=== PATIENT | female | born 2000 | race Caucasian/White ===

== ENCOUNTER 2018-09-22 14:40 | Outpatient (CLI) | payer OTHER | END 2018-09-22 14:41 | disposition EMS.NT | LOC: EMS 14:40 | PROVIDERS: ATTEND Surgery | DX: R42 Dizziness and giddiness (principal) ==

== ENCOUNTER 2018-09-22 15:41 | Emergency (ER) | payer OTHER ==
--- NOTE | 2018-09-22 16:04 | ED Physician Documentation ---
History of Present Illness - Stated complaint Stated Complaint: DIZZY - Chief complaint Chief Complaint: General - History obtained from History obtained from: Patient, EMS - History of Present Illness Timing: Today Pain level max: 0 Pain level now: 0 - Additonal information Additional information: 18-year-old female presents to the emergency department after feeling lightheaded dizzy and near syncopal at work today. She states that her hands and feet were blue and tingling. She states that she ate and drank normally today. No new medications. Did have a spray watson yesterday. No fevers, coughing, vomiting, diarrhea. Similar episode occurred during [employer]. No chest pain. No palpitations. Denies any possibility of Review of Systems Ten Systems: 10 systems reviewed and negative Constitutional: denies: Fever, Chills Throat: denies: Sore throat Cardiac: denies: Chest pain / pressure, Palpitations GI: denies: Vomiting : denies: Dysuria, Now EGA Skin: denies: Rash Musculoskeletal: denies: Neck pain Neurologic: denies: Headache PD PAST MEDICAL HISTORY - Past Medical History Past Medical History: No - Past Surgical History Past Surgical History: No - Present Medications Home Medications: Ambulatory Orders Medication Instructions Recorded Confirmed No Known Home Medications 09/22/18 09/22/18 - Allergies Allergies/Adverse Reactions: Allergies Allergy/AdvReac Type Severity Reaction Status Date / Time No Known Drug Allergies Allergy Verified 09/22/18 16:05 - Living Situation Living Situation: reports: With family Living Arrangement: reports: At home - Social History Does the pt smoke?: No Does the pt drink ETOH?: No Does the pt have substance abuse?: No PD ED PE NORMAL - Vitals Vital signs reviewed: Yes - General General: Alert and oriented X 3, No acute distress, Well developed/nourished - HEENT HEENT: Atraumatic, PERRL, Ears normal, Moist mucous membranes - Neck Neck: Supple, no meningeal sign - Cardiac Cardiac: RRR, No murmur, Strong equal pulses - Respiratory Respiratory: No respiratory distress, Clear bilaterally - Abdomen Abdomen: Soft, Non tender, Non distended - Derm Derm: Warm and dry, No rash - Extremities Extremities: No edema, No calf tenderness / cord - Neuro Neuro: Alert and oriented X 3, 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, No motor deficit, No sensory deficit, Normal speech - Psych Psych: Normal mood, Normal affect Results - Vitals Vitals: Vital Signs - 24 hr 09/22/18 09/22/18 15:45 17:03 Temperature 36.6 C Heart Rate 78 84 Respiratory 17 15 Rate Blood Pressure 126/79 117/76 O2 Saturation 100 100 Oxygen O2 Source Room air - EKG (time done) 1546 Rate: Rate (enter#) (79) Rhythm: NSR [place]: Normal Intervals: Normal PA QRS: Normal Ischemia: Normal ST segments Computer interpretation: Agree with computer - Labs Labs: Laboratory Tests 09/22/18 09/22/18 09/22/18 15:58 16:05 16:08 WBC 5.7 RBC 4.49 Hgb 12.5 Hct 37.3 MCV 83.3 MCH 27.9 MCHC 33.5 RDW 13.1 Plt Count 261 MPV 7.9 Neut # (Auto) 3.0 Lymph # (Auto) 2.1 [place] # (Auto) 0.4 Eos # (Auto) 0.1 Baso # (Auto) 0.1 Absolute Nucleated RBC 0.00 Nucleated RBC % 0.1 Sodium Potassium Chloride Carbon Dioxide Anion Gap BUN Creatinine Estimated GFR (MDRD) Glucose POC Whole Bld Glucose 81 Calcium Total Bilirubin AST ALT Alkaline Phosphatase Total Protein Albumin Globulin Albumin/Globulin Ratio Lipase Urine Color YELLOW Urine Clarity CLEAR Urine pH 7.0 Ur Specific [place] <=1.005 Urine Protein NEGATIVE Urine Glucose (UA) NEGATIVE Urine Ketones NEGATIVE Urine Occult Blood NEGATIVE Urine Nitrite NEGATIVE Urine Bilirubin NEGATIVE Urine Urobilinogen 0.2 (NORMAL) Ur Leukocyte Esterase NEGATIVE Ur Microscopic Review NOT INDICATED Urine Culture Comments NOT INDICATED Urine HCG, Qual NEGATIVE 09/22/18 16:08 WBC RBC Hgb Hct MCV MCH MCHC RDW Plt Count MPV Neut # (Auto) Lymph # (Auto) [place] # (Auto) Eos # (Auto) Baso # (Auto) Absolute Nucleated RBC Nucleated RBC % Sodium 139 Potassium 3.6 Chloride 107 Carbon Dioxide 24 Anion Gap 8.0 BUN 10 Creatinine 0.6 Estimated GFR (MDRD) 127 Glucose 100 POC Whole Bld Glucose Calcium 8.6 Total Bilirubin 0.7 AST 14 ALT < 10 L Alkaline Phosphatase 49 Total Protein 7.0 Albumin 4.1 Globulin 2.9 Albumin/Globulin Ratio 1.4 Lipase 27 Urine Color Urine Clarity Urine pH Ur Specific [place] Urine Protein Urine Glucose (UA) Urine Ketones Urine Occult Blood Urine Nitrite Urine Bilirubin Urine Urobilinogen Ur Leukocyte Esterase Ur Microscopic Review Urine Culture Comments Urine HCG, Qual - Rads (name of study) Chest x-ray Radiology: Prelim report reviewed, EMP read contemporaneously, See rad report (No acute disease) PD MEDICAL DECISION MAKING - ED course Complexity details: reviewed results, re-evaluated patient, considered differential, d/w patient ED course: 18-year-old female presents to the emergency department after a near syncopal event today. Normal testing here. She is well-appearing, nontoxic. Asymptomatic. We will have her follow-up with her PCP for further care. May benefit from an echocardiogram as this is the second episode. May also benefit from a Holter monitor. Patient counseled regarding signs and symptoms for which I believe and urgent re-evaluation would be necessary. Patient with good understanding of and agreement to plan and is comfortable going home at this time This document was made in part using voice recognition software. While efforts are made to proofread this document, sound alike and grammatical errors may occur. Departure - Departure Disposition: 01 Home, Self Care Clinical Impression: Vasovagal near syncope Condition: Good Instructions: ED Near Syncope Vasovagal Follow-Up: MAICO HOPKINS [Primary Care Provider] - Within 1 week Comments: Your testing is normal today. Return if you worsen. Follow-up with your doctor for further care. They may want to perform further testing such as an echocardiogram to further evaluate your heart. Discharge Date/Time: 09/22/18 17:07
[2018-09-22 16:15] LABS: BASOPHILS # (AUTO) 0.1 10^3/uL (0.0-0.1); EOSINOPHILS # (AUTO) 0.1 10^3/uL (0.0-0.7); EOSINOPHILS % (AUTO) 1.9 %; HGB - HEMOGLOBIN 12.5 g/dL (12.0-16.0); LYMPHOCYTES # (AUTO) 2.1 10^3/uL (1.5-3.5); LYMPHOCYTES % (AUTO) 37.4 %; MEAN CORPUSCULAR HEMOGLOBIN 27.9 pg (27.0-31.0); MEAN CORPUSCULAR HGB CONC 33.5 g/dL (32.0-36.0); MEAN CORPUSCULAR VOLUME 83.3 fL (81.0-99.0); MEAN PLATELET VOLUME 7.9 fL (7.9-10.8); MONOCYTES # (AUTO) 0.4 10^3/uL (0.0-1.0); MONOCYTES % (AUTO) 6.6 %; NEUTROPHILS % (AUTO) 53.1 %; PLT - PLATELET COUNT 261 10^3/uL (130-450); RED BLOOD COUNT 4.49 10^6/uL (4.20-5.40); RED CELL DISTRIBUTION WIDTH 13.1 % (12.0-15.0); WHITE BLOOD COUNT 5.7 x10^3/uL (4.8-10.8)
[2018-09-22 16:15] LABS: BILIRUBIN,URINE NEGATIVE (NEGATIVE); GLUCOSE, URINE (UA) NEGATIVE (NEGATIVE); KETONES,URINE (UA) NEGATIVE (NEGATIVE); LEUKOCYTE ESTERASE, URINE NEGATIVE (NEGATIVE); NITRITE,URINE NEGATIVE (NEGATIVE); OCCULT BLOOD,URINE NEGATIVE (NEGATIVE); PROTEIN,URINE NEGATIVE (NEGATIVE); UROBILINOGEN,URINE 0.2 (NORMAL) E.U./dL (NORMAL)
[2018-09-22 16:21] LABS: CLARITY,URINE CLEAR (CLEAR); HCG UR QUAL NEGATIVE
[2018-09-22 16:29] LABS: ALBUMIN 4.1 g/dL (3.2-5.5); ALBUMIN/GLOBULIN RATIO 1.4 (1.0-2.2); ALKALINE PHOSPHATASE 49 IU/L (42-121); ALT ALANINE AMINOTRANSFERASE < 10 IU/L (10-60); AST ASPARTATE AMINOTRANSFERASE 14 IU/L (10-42); BILIRUBIN,TOTAL 0.7 mg/dL (0.2-1.0); BUN - BLOOD UREA NITROGEN 10 mg/dL (6-20); CALCIUM 8.6 mg/dL (8.5-10.3); CARBON DIOXIDE - CO2 24 mmol/L (21-32); CHLORIDE 107 mmol/L (101-111); CREATININE 0.6 mg/dL (0.4-1.0); GFR - MDRD 127 (>89); GLUCOSE 100 mg/dL (70-100); LIPASE 27 U/L (22-51); SODIUM 139 mmol/L (135-145)
--- NOTE | 2018-09-22 16:53 | XRAY Report ---
Reason: near syncope Procedure Date: 09/22/2018 Accession Number: [id number] / [id number] Procedure: XR - Chest 1 View X-Ray CPT Code: 29713 FULL RESULT: EXAM: CHEST RADIOGRAPHY EXAM DATE: 09/22/2018 04:04 PM. CLINICAL HISTORY: Near syncope. COMPARISON: None. TECHNIQUE: 1 view. FINDINGS: Lungs/Pleura: No localized infiltrate, consolidation, effusion, or pneumothorax. Mediastinum: Within exam limitations, the cardiomediastinal contour is normal. Upper lobe vessels not distended. Other: None. IMPRESSION: Normal single view chest. RADIA
[2018-09-22 17:07] VITALS: BP 117/76
== END 2018-09-22 17:07 | disposition home or self-care (01) ==
LOC: ED 15:41
DX: R55 Syncope and collapse (principal)
CPT/HCPCS: 36415; 71045; 80053; 81001; 81003; 81025; 83690; 85025; 87086; 93005; 99283

== ENCOUNTER 2018-10-04 12:20 | Emergency (ER) | payer OTHER ==
--- NOTE | 2018-10-04 13:35 | XRAY Report ---
Reason: injury Procedure Date: 10/04/2018 Accession Number: [id number] / [id number] Procedure: XR - Foot 3 View RT CPT Code: FULL RESULT: EXAM: RIGHT FOOT RADIOGRAPHY EXAM DATE: 10/04/2018 01:21 PM. CLINICAL HISTORY: Injury. COMPARISON: None. TECHNIQUE: 3 views. FINDINGS: Bones: There is a transverse linear lucency through the proximal fifth metatarsal. Otherwise unremarkable. Joints: Normal. No subluxations. Soft Tissues: Normal. No soft tissue swelling. IMPRESSION: Nondisplaced fracture of proximal fifth metatarsal RADIA
--- NOTE | 2018-10-04 13:37 | XRAY Report ---
Reason: injury Procedure Date: 10/04/2018 Accession Number: [id number] / [id number] Procedure: XR - Ankle 3 View RT CPT Code: FULL RESULT: EXAM: RIGHT ANKLE RADIOGRAPHY EXAM DATE: 10/04/2018 01:21 PM. CLINICAL HISTORY: Injury. COMPARISON: None. TECHNIQUE: 3 views. FINDINGS: Bones: There is a nondisplaced fracture of the proximal fifth metatarsal. No tibia-fibula fracture. Talus and calcaneus appears intact. Joints: Normal. No effusion. No subluxations. The ankle mortise is normally aligned. Soft Tissues: Normal. No soft tissue swelling. IMPRESSION: 1. Nondisplaced proximal fifth metatarsal fracture. 2. No fracture or subluxation of ankle. RADIA
--- NOTE | 2018-10-04 14:44 | ED Physician Documentation ---
PD HPI LOWER EXT INJURY - Stated complaint Stated Complaint: R FOOT INJ - Chief complaint Chief Complaint: Ext Problem - History obtained from History obtained from: Patient - History of Present Illness PD HPI LOW EXT INJURY LOCATION: Right (She was jumping down her steps this morning and came down wrong injuring her right foot. She is unable to walk or bear weight. No other injuries.) Review of Systems Constitutional: reports: Reviewed and negative Cardiac: reports: Reviewed and negative Respiratory: reports: Reviewed and negative PD PAST MEDICAL HISTORY - Past Surgical History Past Surgical History: No - Present Medications Home Medications: Ambulatory Orders Medication Instructions Recorded Confirmed No Known Home Medications 09/22/18 09/22/18 Knee Scooter 1 unit TD ONCE #1 10/04/18 - Allergies Allergies/Adverse Reactions: Allergies Allergy/AdvReac Type Severity Reaction Status Date / Time No Known Drug Allergies Allergy Verified 10/04/18 12:29 - Social History Does the pt smoke?: No Smoking Status: Current every day smoker Does the pt drink ETOH?: No Does the pt have substance abuse?: No - Immunizations Immunizations are current?: Yes PD ED PE NORMAL - Vitals Vital signs reviewed: Yes - General General: Alert and oriented X 3, No acute distress - Extremities Extremities: Other (Right foot and ankle, tenderness over the right fifth metatarsal without deformity. Normal neurovascular function.) - Neuro Neuro: Alert and oriented X 3, Normal speech Results - Vitals Vitals: Vital Signs - 24 hr 10/04/18 12:25 Temperature 36.4 C L Heart Rate 105 H Respiratory 18 Rate Blood Pressure 118/84 H O2 Saturation 100 Oxygen O2 Source Room air - Rads (name of study) R foot and ankle Radiology: EMP read contemporaneously (Nondisplaced proximal fifth metatarsal fracture) Procedures - Splint (location) R foot Splint applied by: Tech Type of splint: Fiberglass, Short leg, Posterior Other: Patient tolerated well, No complications, Neurovascular intact, Crutches provided Departure - Departure Disposition: 01 Home, Self Care Clinical Impression: Nondisplaced fracture of fifth right metatarsal bone Qualifiers: Encounter type: initial encounter Fracture type: closed Qualified Code(s): S92.354A - Nondisplaced fracture of fifth metatarsal bone, right foot, initial encounter for closed fracture Condition: Good Record reviewed to determine appropriate education?: Yes Instructions: ED Fx Foot Prescriptions: Knee Scooter 1 unit TD ONCE #1 Comments: [place]opedics within the week. Do not walk or bear weight on right foot until advised it is safe [place]. Forms: Activity restrictions
[2018-10-04 15:23] VITALS: BP 123/74
== END 2018-10-04 15:25 | disposition home or self-care (01) ==
LOC: ED 12:20
DX: S92.354A Nondisplaced fracture of fifth metatarsal bone, right foot, initial encounter for closed fracture (principal); X50.1XXA Overexertion from prolonged static or awkward postures, initial encounter; Y93.39 Activity, other involving climbing, rappelling and jumping off; F17.200 Nicotine dependence, unspecified, uncomplicated
CPT/HCPCS: 29515; 99283

== ENCOUNTER 2018-12-24 21:33 | Emergency (ER) | payer OTHER ==
[2018-12-24 22:02] LABS: BILIRUBIN,URINE NEGATIVE (NEGATIVE); GLUCOSE, URINE (UA) NEGATIVE (NEGATIVE); KETONES,URINE (UA) NEGATIVE (NEGATIVE); LEUKOCYTE ESTERASE, URINE NEGATIVE (NEGATIVE); NITRITE,URINE NEGATIVE (NEGATIVE); OCCULT BLOOD,URINE NEGATIVE (NEGATIVE); PROTEIN,URINE NEGATIVE (NEGATIVE); UROBILINOGEN,URINE 0.2 (NORMAL) E.U./dL (NORMAL)
[2018-12-24 22:03] LABS: CLARITY,URINE CLEAR (CLEAR)
[2018-12-24 22:04] LABS: HCG UR QUAL NEGATIVE
[2018-12-24 22:26] LABS: BASOPHILS % (AUTO) 0.6 %; EOSINOPHILS # (AUTO) 0.3 10^3/uL (0.0-0.7); EOSINOPHILS % (AUTO) 4.1 %; HGB - HEMOGLOBIN 13.3 g/dL (12.0-16.0); LYMPHOCYTES # (AUTO) 3.1 10^3/uL (1.5-3.5); MEAN CORPUSCULAR HGB CONC 33.6 g/dL (32.0-36.0); MEAN CORPUSCULAR VOLUME 83.2 fL (81.0-99.0); MEAN PLATELET VOLUME 7.7 fL (7.9-10.8); MONOCYTES # (AUTO) 0.5 10^3/uL (0.0-1.0); MONOCYTES % (AUTO) 6.9 %; NEUTROPHILS # (AUTO) 3.3 10^3/uL (1.5-6.6); NEUTROPHILS % (AUTO) 45.4 %; PLT - PLATELET COUNT 309 10^3/uL (130-450); RED BLOOD COUNT 4.73 10^6/uL (4.20-5.40); RED CELL DISTRIBUTION WIDTH 12.9 % (12.0-15.0); WHITE BLOOD COUNT 7.3 x10^3/uL (4.8-10.8)
[2018-12-24 22:45] LABS: ALBUMIN 4.5 g/dL (3.2-5.5); ALBUMIN/GLOBULIN RATIO 1.3 (1.0-2.2); BILIRUBIN,TOTAL 0.7 mg/dL (0.2-1.0); CALCIUM 9.8 mg/dL (8.5-10.3); CREATININE 0.7 mg/dL (0.4-1.0); TOTAL PROTEIN 7.9 g/dL (6.7-8.2)
[2018-12-25] MEDS ORDERED: IOVERSOL 320 100 ML VIAL IVP ONE ×2 (01:18→01:48)
--- NOTE | 2018-12-25 01:50 | CT Report ---
Reason: RLQ pain, tenderness Procedure Date: 12/25/2018 Accession Number: [id number] / [id number] Procedure: CT - Abdomen/Pelvis W CPT Code: FULL RESULT: EXAM: CT ABDOMEN AND PELVIS EXAM DATE: 12/25/2018 01:44 AM. CLINICAL HISTORY: Right lower quadrant pain, tenderness. COMPARISONS: None. TECHNIQUE: Routine helical CT imaging was performed through the abdomen and pelvis. IV contrast: Yes . Enteric contrast: No . Reconstructions: Coronal and sagittal. In accordance with CT protocol optimization, one or more of the following dose reduction techniques were utilized for this exam: automated exposure control, adjustment of mA and/or KV based on patient size, or use of iterative reconstructive technique. FINDINGS: Lung Bases: Unremarkable. Liver: Unremarkable. No suspicious masses. Gallbladder/Bile Ducts: Unremarkable. Spleen: Unremarkable. Pancreas: Unremarkable. Adrenal Glands: Unremarkable. Kidneys: Unremarkable. No suspicious masses or hydronephrosis. Peritoneal Cavity/Bowel: No bowel obstruction or inflammatory process seen. No free air or significant free fluid. No masses or adenopathy. The appendix is normal. No excessive stool burden. Pelvic Organs: Bladder, uterus, and adnexa appear unremarkable with note of an IUD. Vasculature: No aneurysms or other significant abnormality. Bones: No significant abnormality. Other: None. IMPRESSION: Normal abdomen and pelvis CT. RADIA
--- NOTE | 2018-12-25 02:17 | ED Physician Documentation ---
PD HPI ABD PAIN - Stated complaint Stated Complaint: FEMALE /NAUSEA - Chief complaint Chief Complaint: Abd Pain - History obtained from History obtained from: Patient - History of Present Illness Timing - onset: How many weeks ago (2) Timing - details: Gradual onset, Waxing and waning Quality: Pain Location: All over / everywhere Radiation: Other (no radiation) Improved by: Other (no ameliorating factors) Worsened by: Palpation Associated symptoms: No: Fever, Nausea, Vomiting, Diarrhea, Constipation Similar symptoms before: Has not had sx before Recently seen: Not recently seen - Additional information Additional information: c/o 2 weeks of gradual onset, gradually worsening abdominal pain, predominantly right-sided. Review of Systems Constitutional: reports: Reviewed and negative Cardiac: reports: Reviewed and negative Respiratory: reports: Reviewed and negative GI: reports: Abdominal Pain. denies: Nausea, Vomiting, Constipation, Diarrhea : denies: Dysuria, Frequency, Now EGA Musculoskeletal: reports: Reviewed and negative PD PAST MEDICAL HISTORY - Past Medical History Past Medical History: No - Past Surgical History Past Surgical History: No - Present Medications Home Medications: Ambulatory Orders Medication Instructions Recorded Confirmed No Known Home Medications 09/22/18 09/22/18 Knee Scooter 1 unit TD ONCE #1 10/04/18 - Allergies Allergies/Adverse Reactions: Allergies Allergy/AdvReac Type Severity Reaction Status Date / Time No Known Drug Allergies Allergy Verified 10/04/18 12:29 - Social History Does the pt smoke?: No Smoking Status: Never smoker Does the pt drink ETOH?: No Does the pt have substance abuse?: No - Immunizations Immunizations are current?: Yes PD ED PE NORMAL - Vitals Vital signs reviewed: Yes - General General: Alert and oriented X 3, No acute distress, Well developed/nourished - HEENT HEENT: Moist mucous membranes - Cardiac Cardiac: RRR, No murmur - Respiratory Respiratory: No respiratory distress, Clear bilaterally - Abdomen Abdomen: Soft, Non distended - Back Back: No CVA TTP - Derm Derm: Normal color, Warm and dry, No rash PD ED PE EXPANDED - Abdomen Abdomen: Tender to palpation, RLQ. No: Rebound, Guarding Results - Vitals Vitals: Vital Signs - 24 hr 12/24/18 12/25/18 12/25/18 21:38 00:00 01:58 Temperature 36.8 C Heart Rate 76 62 68 Respiratory 20 16 18 Rate Blood Pressure 123/69 119/63 101/55 L O2 Saturation 100 98 99 12/25/18 02:33 Temperature Heart Rate 65 Respiratory 19 Rate Blood Pressure 103/65 O2 Saturation 96 Oxygen O2 Source Room air - Labs Labs: Laboratory Tests 12/24/18 12/24/18 12/24/18 21:50 22:15 22:15 WBC 7.3 RBC 4.73 Hgb 13.3 Hct 39.4 MCV 83.2 MCH 28.0 MCHC 33.6 RDW 12.9 Plt Count 309 MPV 7.7 L Neut # (Auto) 3.3 Lymph # (Auto) 3.1 [place] # (Auto) 0.5 Eos # (Auto) 0.3 Baso # (Auto) 0.0 Absolute Nucleated RBC 0.00 Nucleated RBC % 0.0 Sodium 138 Potassium 3.5 Chloride 104 Carbon Dioxide 23 Anion Gap 11.0 BUN 15 Creatinine 0.7 Estimated GFR (MDRD) 107 Glucose 94 Calcium 9.8 Total Bilirubin 0.7 AST 19 ALT 15 Alkaline Phosphatase 54 Total Protein 7.9 Albumin 4.5 Globulin 3.4 Albumin/Globulin Ratio 1.3 Lipase 23 Urine Color YELLOW Urine Clarity CLEAR Urine pH 6.0 Ur Specific [place] 1.020 Urine Protein NEGATIVE Urine Glucose (UA) NEGATIVE Urine Ketones NEGATIVE Urine Occult Blood NEGATIVE Urine Nitrite NEGATIVE Urine Bilirubin NEGATIVE Urine Urobilinogen 0.2 (NORMAL) Ur Leukocyte Esterase NEGATIVE Ur Microscopic Review NOT INDICATED Urine Culture Comments NOT INDICATED Urine HCG, Qual NEGATIVE - Rads (name of study) CT A/P Radiology: Prelim report reviewed, See rad report PD MEDICAL DECISION MAKING - ED course Complexity details: reviewed results, re-evaluated patient, considered differential, d/w patient Departure - Departure Disposition: 01 Home, Self Care Clinical Impression: Abdominal pain Condition: Good Instructions: ED Abdominal Pain Unkn Cause Follow-Up: JONO Lopes [Provider Group] Discharge Date/Time: 12/25/18 02:39
[2018-12-25 02:34] VITALS: BP 103/65
== END 2018-12-25 02:39 | disposition home or self-care (01) ==
LOC: ED 21:33
DX: R10.31 Right lower quadrant pain (principal)
CPT/HCPCS: 36415; 74177; 80053; 81003; 81025; 83690; 85025; 99283; Q9967; 81001; 87086

== ENCOUNTER 2020-04-21 09:43 | Emergency (ER) | payer OTHER ==
--- NOTE | 2020-04-21 10:16 | ED Physician Documentation ---
PD HPI HEADACHE - Stated complaint Stated Complaint: HAQUE, NAUSEA - Chief complaint Chief Complaint: General - History obtained from History obtained from: Patient - History of Present Illness Timing - onset: How many days ago (6) Timing - onset during: Rest Timing - duration: Days (6) Timing - details: Gradual onset, Still present, Waxing and waning Location: Right Quality: Throbbing Associated symptoms: Stiff neck, Nausea. 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 She is having some difficulty sleeping at night secondary to the headache. She does get some relief with taking Excedrin and she is not getting relief with taking Tylenol PM. She denies any history of migraine in herself or in any family members and she denies any aura prior to the headache starting. She does have some pain at the base of the right neck. Review of Systems Constitutional: denies: Fever, Chills, Myalgias, Fatigue, Sweats Eyes: denies: Decreased vision, Photophobia Ears: denies: Ear pain Nose: denies: Rhinorrhea / runny nose, Congestion Throat: denies: Sore throat Cardiac: denies: Chest pain / pressure, Palpitations Respiratory: denies: Dyspnea, Cough GI: reports: Nausea. denies: Abdominal Pain, Vomiting, Constipation, Diarrhea : denies: Dysuria, Frequency Skin: denies: Rash, Lesions, Laceration (s) Musculoskeletal: reports: Neck pain. denies: Back pain, Extremity pain Neurologic: reports: Headache. 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 : None HEENT: None Psych: None Musculoskeletal: None Derm: None - Past Surgical History Past Surgical History: No - Present Medications Home Medications: Ambulatory Orders Medication Instructions Recorded Confirmed Cyclobenzaprine [Flexeril] 10 mg PO TID PRN #20 tablet 04/21/20 - Allergies Allergies/Adverse Reactions: Allergies Allergy/AdvReac Type Severity Reaction Status Date / Time No Known Drug Allergies Allergy Verified 04/21/20 10:04 - Social History Does the pt smoke?: No Smoking Status: Never smoker Does the pt drink ETOH?: Yes Does the pt have substance abuse?: No - Immunizations Immunizations are current?: Yes - POLST Patient has POLST: No PD ED PE NORMAL - Vitals Vital signs reviewed: Yes (Normal) - General General: Alert and oriented X 3, No acute distress, Well developed/nourished - HEENT HEENT: Atraumatic, PERRL, EOMI, Ears normal, Moist mucous membranes, Pharynx benign, Dentition benign - Neck Neck: Supple, no meningeal sign, No bony TTP, Other (There is specific point tenderness to the right occiput at the insertion of the trapezius. 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, No motor deficit, No sensory deficit, Normal speech Eye Opening: Spontaneous Motor: Obeys Commands Verbal: Oriented GCS Score: 15 - Psych Psych: Normal mood, Normal affect Results - Vitals Vitals: Vital Signs - 24 hr 04/21/20 04/21/20 09:52 10:05 Temperature 36.4 C L 37.2 C Heart Rate 90 105 H Respiratory 16 16 Rate Blood Pressure 126/70 130/77 O2 Saturation 98 100 Oxygen O2 Source Room air Procedures - IVC sono (time) 1014 Bedside IVC sono: IVC measures (cm) (1.67), Euvolemia PD MEDICAL DECISION MAKING - ED course Complexity details: reviewed old records, reviewed results, re-evaluated patient, considered differential, d/w patient ED course: 19-year-old female with a headache and some nausea does not have photophobia or family history of migraine or history of migraine and herself and did not have an aura prior to the onset of headache. She does have pain in the occiput at the insertion of the trapezius consistent with a tension headache from greater occipital neuritis and she is administered dexamethasone 10 mg orally and 60 mg of Toradol IM. We will place her on some Flexeril for use at night. Departure - Departure Disposition: 01 Home, Self Care Clinical Impression: Tension headache Condition: Stable Instructions: ED Headache Tension Follow-Up: JONO Pedrazamartina Lopes [Provider Group] Prescriptions: Cyclobenzaprine [Flexeril] 10 mg PO TID PRN #20 tablet PRN Reason: Spasms
[2020-04-21] MEDS ORDERED: KETOROLAC 60 MG/2 ML VIAL IM STA (10:18)
[2020-04-21] MEDS ORDERED: DEXAMETHASONE 10 MG/ML VIAL PO STA (10:18)
[2020-04-21] MEDS ORDERED: CHERRY SYRUP 10 ML UDC PO ONE (10:18)
[2020-04-21 10:45] VITALS: BP 114/74
== END 2020-04-21 10:45 | disposition home or self-care (01) ==
LOC: ED 09:43
DX: G44.201 Tension-type headache, unspecified, intractable (principal)
CPT/HCPCS: 96372; 99283; 99284; A9270

== ENCOUNTER 2021-04-08 07:58 | Emergency (ER) | payer OTHER ==
[2021-04-08 08:09] VITALS: BP 128/73
[2021-04-08] MEDS ORDERED: SODIUM CHLORIDE 0.9% 1,000 ML IV STA (08:23)
[2021-04-08] MEDS ORDERED: KETOROLAC 30 MG/ML VIAL IVP STA (08:23)
[2021-04-08 08:30] LABS: BILIRUBIN,URINE NEGATIVE (NEGATIVE); GLUCOSE, URINE (UA) NEGATIVE (NEGATIVE); KETONES,URINE (UA) NEGATIVE (NEGATIVE); LEUKOCYTE ESTERASE, URINE NEGATIVE (NEGATIVE); NITRITE,URINE NEGATIVE (NEGATIVE); OCCULT BLOOD,URINE NEGATIVE (NEGATIVE); PH,URINE 5.5 PH (5.0-7.5); PROTEIN,URINE NEGATIVE (NEGATIVE); UROBILINOGEN,URINE 0.2 (NORMAL) E.U./dL (NORMAL)
[2021-04-08 08:34] LABS: CLARITY,URINE CLEAR (CLEAR); HCG UR QUAL NEGATIVE
--- NOTE | 2021-04-08 08:58 | CT Report ---
PROCEDURE: Abdomen/Pelvis WO INDICATIONS: LLQ pain radiating to L flank TECHNIQUE: Noncontrast 5 mm thick sections acquired from the diaphragms to the symphysis. 5 mm coronal and sagi ttal reformats were then performed. For radiation dose reduction, the following was used: automated exposure control, adjustment of mA and/or kV according to patient size. COMPARISON: 12/25/2018 FINDINGS: Image quality: Excellent. ABDOMEN: Lung bases: Lung bases are clear. Heart size is normal. Solid organs: Normal unenhanced CT appearance of the liver, spleen, pancreas, gallbladder, and adrena l glands. There is a tiny punctate calculus measuring no greater than 1 mm in the inferior pole of th e left kidney (series 6 image 26 and series 3 image 35). No other urinary tract calculus. No hydronep hrosis or hydroureter. Peritoneum and bowel: Unenhanced bowel loops demonstrate normal wall thickness and caliber. No free fluid or air. Nodes and vessels: No retroperitoneal or mesenteric adenopathy by size criteria. Aorta and inferior vena cava are normal in caliber. Miscellaneous: No ventral hernias. PELVIS: Genitourinary: Bladder wall thickness is normal. Uterus and ovaries unremarkable. Miscellaneous: No inguinal hernias or adenopathy. Bones: No suspicious bony lesions. No vertebral body compression fractures. IMPRESSION: No findings to explain left lower quadrant pain or flank pain. Punctate nonobstructing 1 mm renal calculus in the left lower pole. Reviewed by: Rene Montez MD on 04/08/2021 8:56 AM PDT Approved by: Rene Montez MD on 04/08/2021 8:56 AM PDT Station ID: [id number]
--- NOTE | 2021-04-08 09:12 | ED Physician Documentation ---
PD HPI ABD PAIN - Stated complaint Stated Complaint: ABD PX - Chief complaint Chief Complaint: Abd Pain - History obtained from History obtained from: Patient - History of Present Illness Timing - onset: Today Timing - duration: Hours Timing - details: Abrupt onset, Still present Quality: Sharp, Pain Location: LLQ Radiation: Left flank Improved by: Other (nothing) Worsened by: Other (standing up right) Associated symptoms: No: Fever, Nausea, Vomiting, Hematemesis, Diarrhea, Constipation, Dysuria, Chest pain Similar symptoms before: Has not had sx before Recently seen: Not recently seen - Additional information Additional information: 20-year-old female awoke this morning with pain in her left flank. She felt that this radiated from her left lower quadrant into her flank and all the way up her back. She felt that if she stood up straight this pain was a bit worse. She comes into the emergency department hunched over. She had to call off work. She has not had these symptoms previously. She is about 10 days late for her menstruation and she has had a negative test 3 days ago. She is trying to get and has had her IUD removed. Review of Systems Constitutional: denies: Fever Eyes: denies: Decreased vision Ears: denies: Ear pain Nose: denies: Congestion Throat: denies: Sore throat Respiratory: denies: Cough GI: reports: Abdominal Pain. 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 : None HEENT: None Psych: None Musculoskeletal: None Derm: None - Past Surgical History Past Surgical History: No - Present Medications Home Medications: Ambulatory Orders Medication Instructions Recorded Confirmed No Known Home Medications 04/08/21 04/08/21 - Allergies Allergies/Adverse Reactions: Allergies Allergy/AdvReac Type Severity Reaction Status Date / Time No Known Drug Allergies Allergy Verified 04/08/21 08:09 - Social History Does the pt smoke?: No Smoking Status: Never smoker Does the pt drink ETOH?: Yes Does the pt have substance abuse?: No - Immunizations Immunizations are current?: Yes - POLST Patient has POLST: No PD ED PE NORMAL - Vitals Vital signs reviewed: Yes (Normal) - General General: Alert and oriented X 3, Well developed/nourished, Other (20-year-old female leaning forward on the gurney appears to be in pain.) - HEENT HEENT: Atraumatic, PERRL, EOMI - Neck Neck: Supple, no meningeal sign, No bony TTP - Cardiac Cardiac: RRR, No murmur - Respiratory Respiratory: No respiratory distress, Clear bilaterally - Abdomen Abdomen: Normal bowel sounds, Soft, Non tender, Non distended, No organomegaly, Other (No direct or referred tenderness) - Back Back: No CVA TTP, No spinal TTP - Derm Derm: Normal color, Warm and dry, No rash - Extremities Extremities: No deformity, No edema - Neuro Neuro: Alert and oriented X 3, post anesthesia room nurse 2-12 intact, No motor deficit, No sensory deficit, Normal speech Eye Opening: Spontaneous Motor: Obeys Commands Verbal: Oriented GCS Score: 15 - Psych Psych: Normal mood Results - Vitals Vitals: Vital Signs - 24 hr 04/08/21 08:06 Temperature 36.2 C L Heart Rate 81 Respiratory 20 Rate Blood Pressure 128/73 O2 Saturation 100 Oxygen O2 Source Room air - Labs Labs: Laboratory Tests 04/08/21 08:20 Urine Color YELLOW Urine Clarity CLEAR Urine pH 5.5 Ur Specific [place] 1.025 Urine Protein NEGATIVE Urine Glucose (UA) NEGATIVE Urine Ketones NEGATIVE Urine Occult Blood NEGATIVE Urine Nitrite NEGATIVE Urine Bilirubin NEGATIVE Urine Urobilinogen 0.2 (NORMAL) Ur Leukocyte Esterase NEGATIVE Ur Microscopic Review NOT INDICATED Urine Culture Comments NOT INDICATED Urine HCG, Qual NEGATIVE - Rads (name of study) CT ab/pel Radiology: Prelim report reviewed (Impression: No findings to explain left lower quadrant pain or flank pain. Punctate nonobstructing 1 mm renal calculus in the left lower pole.), EMP read indepedently, See rad report Procedures - Bedside sono Bedside sono by EMP: With use bedside ultrasound the left kidney is imaged it is sonographically nontender there is no obvious hydronephrosis present. When the patient returns from CT scan her pain has resolved and reevaluation at that time shows resolution of the previously seen hydronephrosis. PD MEDICAL DECISION MAKING - ED course Complexity details: reviewed results, re-evaluated patient, considered differential, d/w patient ED course: 20-year-old female presents the emerge department with left lower quadrant pain that radiates all the way up to her shoulder she is nontender on examination and has hydronephrosis on the bedside ultrasound exam. She is administered a liter of fluid and 30 mg Toradol intravenously and a CT scan is obtained. She has resolution of her pain on the way to the CAT scanner and there is no stone or hydroseen on the CT scan. When the patient returns and results are back from her CT scan and she does have a 1 mm inferior pole stone on the left side her pain is resolved and on repeat examination with bedside ultrasound the hydronephrosis is resolved as well. I suspect the patient may have had a small stone that she has passed without difficulty and I have discussed this with the patient with the expectation that her course behaves in a fashion that would be consistent with this which would be resolution of her pain without further pain. Departure - Departure Disposition: 01 Home, Self Care Clinical Impression: Kidney stone on left side Condition: Stable Instructions: ED Stone Renal Passed Follow-Up: JONO Lopes [Provider Group] Comments: Today from your clinical course and our bedside evaluation it appears you have a kidney stone which appears to have passed. The expectation is that you do not have further pain. If you have recurrence of your pain or development of new symptoms return for further evaluation.
== END 2021-04-08 09:40 | disposition home or self-care (01) ==
LOC: ED 07:58
DX: N20.0 Calculus of kidney (principal)
CPT/HCPCS: 36415; 81001; 81003; 81025; 87086; 96361; 96374; 99284

== ENCOUNTER 2021-08-28 13:19 | Emergency (ER) | payer OTHER ==
[2021-08-28 13:43] LABS: BASOPHILS % (AUTO) 0.7 %; EOSINOPHILS # (AUTO) 0.1 10^3/uL (0.0-0.7); EOSINOPHILS % (AUTO) 2.4 %; HCT - HEMATOCRIT 36.9 % (37.0-47.0); HGB - HEMOGLOBIN 12.4 g/dL (12.0-16.0); LYMPHOCYTES # (AUTO) 2.2 10^3/uL (1.5-3.5); LYMPHOCYTES % (AUTO) 37.9 %; MEAN CORPUSCULAR HEMOGLOBIN 28.4 pg (27.0-31.0); MEAN CORPUSCULAR HGB CONC 33.6 g/dL (32.0-36.0); MEAN CORPUSCULAR VOLUME 84.4 fL (81.0-99.0); MEAN PLATELET VOLUME 9.5 fL (7.9-10.8); MONOCYTES # (AUTO) 0.5 10^3/uL (0.0-1.0); MONOCYTES % (AUTO) 8.4 %; NEUTROPHILS # (AUTO) 2.9 10^3/uL (1.5-6.6); NEUTROPHILS % (AUTO) 50.3 %; PLT - PLATELET COUNT 288 10^3/uL (130-450); RED BLOOD COUNT 4.37 10^6/uL (4.20-5.40); RED CELL DISTRIBUTION WIDTH 12.3 % (12.0-15.0); WHITE BLOOD COUNT 5.8 x10^3/uL (4.8-10.8)
[2021-08-28 14:00] LABS: ALBUMIN 4.3 g/dL (3.2-5.5); ALBUMIN/GLOBULIN RATIO 1.5 (1.0-2.2); BILIRUBIN,TOTAL 0.9 mg/dL (0.2-1.0); CALCIUM 9.2 mg/dL (8.5-10.3); CREATININE 0.6 mg/dL (0.4-1.0); POTASSIUM 3.5 mmol/L (3.5-5.0); TOTAL PROTEIN 7.1 g/dL (6.7-8.2)
--- NOTE | 2021-08-28 16:06 | ED Physician Documentation ---
History of Present Illness - Stated complaint Stated Complaint: POST SURG PX,MIGRAINE,BACK PX, ABD PX,+PREG - Chief complaint Chief Complaint: Abd Pain - History obtained from History obtained from: Patient - History of Present Illness Timing: Today Pain level max: 4 Pain level now: 3 - Additonal information Additional information: 21-year-old female presents to the emergency department complaining of pelvic pain and cramping. This been ongoing for the past 2 to 3 days. Mainly on the left side. Occasionally radiates to the back. She also states that she has had intermittent sharp pains in the umbilical area after an exploratory laparoscopy for possible endometriosis. She states they did not find endometriosis. She also has had occasional headaches. No nausea or vomiting. Currently declines anything for pain. No vaginal bleeding or discharge. She states she had a positive test a few days ago. G1, P0 Review of Systems Constitutional: denies: Fever, Chills Respiratory: denies: Cough GI: denies: Nausea, Vomiting, Diarrhea : denies: Dysuria, Frequency, Hesitancy, Now EGA Skin: denies: Rash Musculoskeletal: denies: Neck pain, Back pain Neurologic: reports: Headache (Mild, gradual in onset. 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 : None HEENT: None Psych: None Musculoskeletal: None Derm: None - Past Surgical History Past Surgical History: No - Present Medications Home Medications: Ambulatory Orders Medication Instructions Recorded Confirmed No Known Home Medications 04/08/21 04/08/21 - Allergies Allergies/Adverse Reactions: Allergies Allergy/AdvReac Type Severity Reaction Status Date / Time No Known Drug Allergies Allergy Verified 08/28/21 13:28 - Social History Does the pt smoke?: No Smoking Status: Never smoker Does the pt drink ETOH?: Yes Does the pt have substance abuse?: No - Immunizations Immunizations are current?: Yes - POLST Patient has POLST: No PD ED PE NORMAL - Vitals Vital signs reviewed: Yes - General General: Alert and oriented X 3, No acute distress, Well developed/nourished - HEENT HEENT: PERRL, Moist mucous membranes - Neck Neck: Supple, no meningeal sign - Cardiac Cardiac: RRR, Strong equal pulses - Respiratory Respiratory: No respiratory distress, Clear bilaterally - Abdomen Abdomen: Soft, Non tender, Non distended, Other (Normal umbilicus. No evidence of infection. No swelling. No hernia.) - Back Back: No CVA TTP - Derm Derm: Warm and dry - Extremities Extremities: No edema - Neuro Neuro: Alert and oriented X 3 - Psych Psych: Normal mood, Normal affect Results - Vitals Vitals: Vital Signs - 24 hr 08/28/21 08/28/21 13:23 17:42 Temperature 36.6 C 37.2 C Heart Rate 93 79 Respiratory 16 16 Rate Blood Pressure 125/79 127/74 O2 Saturation 99 100 Oxygen O2 Source Room air - Labs Labs: Laboratory Tests 08/28/21 08/28/21 08/28/21 13:37 13:37 13:37 WBC 5.8 RBC 4.37 Hgb 12.4 Hct 36.9 L MCV 84.4 MCH 28.4 MCHC 33.6 RDW 12.3 Plt Count 288 MPV 9.5 Neut # (Auto) 2.9 Lymph # (Auto) 2.2 [place] # (Auto) 0.5 Eos # (Auto) 0.1 Baso # (Auto) 0.0 Absolute Nucleated RBC 0.00 Nucleated RBC % 0.0 Sodium 134 L Potassium 3.5 Chloride 100 L Carbon Dioxide 26 Anion Gap 8.0 BUN 13 Creatinine 0.6 Estimated GFR (MDRD) 124 Glucose 96 Calcium 9.2 Total Bilirubin 0.9 AST 17 ALT 14 Alkaline Phosphatase 37 L Total Protein 7.1 Albumin 4.3 Globulin 2.8 Albumin/Globulin Ratio 1.5 Lipase 27 HCG, Quant 1203.49 Urine Color Urine Clarity Urine pH Ur Specific [place] Urine Protein Urine Glucose (UA) Urine Ketones Urine Occult Blood Urine Nitrite Urine Bilirubin Urine Urobilinogen Ur Leukocyte Esterase Ur Microscopic Review Urine Culture Comments Urine HCG, Qual 08/28/21 13:37 WBC RBC Hgb Hct MCV MCH MCHC RDW Plt Count MPV Neut # (Auto) Lymph # (Auto) [place] # (Auto) Eos # (Auto) Baso # (Auto) Absolute Nucleated RBC Nucleated RBC % Sodium Potassium Chloride Carbon Dioxide Anion Gap BUN Creatinine Estimated GFR (MDRD) Glucose Calcium Total Bilirubin AST ALT Alkaline Phosphatase Total Protein Albumin Globulin Albumin/Globulin Ratio Lipase HCG, Quant Urine Color YELLOW Urine Clarity CLEAR Urine pH 7.5 Ur Specific [place] 1.020 Urine Protein NEGATIVE Urine Glucose (UA) NEGATIVE Urine Ketones NEGATIVE Urine Occult Blood NEGATIVE Urine Nitrite NEGATIVE Urine Bilirubin NEGATIVE Urine Urobilinogen 0.2 (NORMAL) Ur Leukocyte Esterase NEGATIVE Ur Microscopic Review NOT INDICATED Urine Culture Comments NOT INDICATED Urine HCG, Qual POSITIVE - Rads (name of study) OB ultrasound Radiology: Final report received, EMP read contemporaneously, See rad report PD MEDICAL DECISION MAKING - ED course Complexity details: reviewed results, re-evaluated patient, considered differential, d/w patient ED course: 21-year-old female, 1 para 0 with pelvic pain. There is a hypoechoic lesion in the endometrial canal, likely gestational or pseudogestational sac. We will have her follow-up closely with OB for serial hCGs and a repeat ultrasound. Ectopic precautions given at bedside. Patient has a normal umbilicus. There is no evidence of hernia or infection. Patient declines any medication here or for her headache. She states that the headache is mostly resolved. We will have her follow-up with OB. Patient counseled regarding signs and symptoms for which I believe and urgent re-evaluation would be necessary. Patient with good understanding of and agreement to plan and is comfortable going home at this time This document was made in part using voice recognition software. While efforts are made to proofread this document, sound alike and grammatical errors may occur. IMPRESSION: 1. Hypoechoic lesion within the endometrial canal, which may reflect a gestational or pseudogestational sac. Consider correlation with serial quantitative beta hCGs and follow-up ultrasound as clinically warranted. Departure - Departure Disposition: 01 Home, Self Care Clinical Impression: Postoperative pain, Intrauterine Condition: Good Instructions: ED Abdominal Pain Rule Out Ectopic Follow-Up: Your,doctor in 3 days [Other] Comments: Follow-up with your doctor for further care. Your hCG level is around 1200 today. You should have a repeat hCG within 3 days with your doctor. They will likely want to repeat a pelvic ultrasound in 1 week. Return for bleeding, pain or worsening symptoms. IMPRESSION: 1. Hypoechoic lesion within the endometrial canal, which may reflect a gestational or pseudogestational sac. Consider correlation with serial quantitative beta hCGs and follow-up ultrasound as clinically warranted. Discharge Date/Time: 08/28/21 17:46
[2021-08-28 16:19] LABS: BILIRUBIN,URINE NEGATIVE (NEGATIVE); GLUCOSE, URINE (UA) NEGATIVE (NEGATIVE); KETONES,URINE (UA) NEGATIVE (NEGATIVE); LEUKOCYTE ESTERASE, URINE NEGATIVE (NEGATIVE); NITRITE,URINE NEGATIVE (NEGATIVE); OCCULT BLOOD,URINE NEGATIVE (NEGATIVE); PH,URINE 7.5 PH (5.0-7.5); PROTEIN,URINE NEGATIVE (NEGATIVE); UROBILINOGEN,URINE 0.2 (NORMAL) E.U./dL (NORMAL)
[2021-08-28 16:20] LABS: CLARITY,URINE CLEAR (CLEAR)
[2021-08-28 16:21] LABS: HCG UR QUAL POSITIVE
--- NOTE | 2021-08-28 17:28 | Ultrasound Report ---
PROCEDURE: OB First Trimester w/TV INDICATIONS: pelvic pain, hcg 1203 OUTSIDE/PRIOR DATING DATA: Last menstrual period (LMP): Unknown. First dating scan (date and location): September 07, 2021. Delayed TECHNIQUE: Real-time scanning was performed of the fetus and maternal pelvic organs, with image documentation. COMPARISON: None. FINDINGS: Embryo: No pole appreciated. A hypoechoic lesion is seen within the endometrial canal, which m ay reflect a gestational or pseudogestational sac. Measurement variability in dating: +/- 4 weeks by LMP, +/- 7 days by mean sac diameter (use before 6 weeks gestation if crown-rump length not able to be measured), +/- 5 days by crown-rump length (6-12 weeks gestation). Maternal organs: A 2.4 x 1.4 x 2.3 cm hypoechoic lesion is seen within the right ovary, which may reflect a corpus lut eum. No evidence of ovarian torsion. IMPRESSION: 1. Hypoechoic lesion within the endometrial canal, which may reflect a gestational or pseudogestation al sac. Consider correlation with serial quantitative beta hCGs and follow-up ultrasound as clinicall y warranted. Reviewed by: Mike Mercedes MD on 08/28/2021 5:27 PM PST Approved by: Mike Mercedes MD on 08/28/2021 5:27 PM PST Station ID: [id number]
[2021-08-28 17:44] VITALS: BP 127/74
== END 2021-08-28 17:46 | disposition home or self-care (01) ==
LOC: ED 13:19
DX: G89.18 Other acute postprocedural pain (principal); N85.8 Other specified noninflammatory disorders of uterus
CPT/HCPCS: 36415; 80053; 81001; 81003; 81025; 83690; 84702; 85025; 87086; 99282; 99284

== ENCOUNTER 2022-08-03 19:49 | Emergency (ER) | payer OTHER ==
--- OUTSIDE RECORDS SUMMARY | 2022-08-03 20:04 | EXTERNAL MEDICAL SUMMARY RPT | Continuity of Care Document ---
:2000 Author Organization [facility] Address [address] [place] [address] Phone Care Team Providers Name Role Phone Unavailable Unavailable Unavailable Myles Sullivan Unavailable Unavailable Allergies and Intolerances date description facility type (no date) No Known Drug Allergies [facility] (unkn own) Encounters No information. Functional Status No information. Immunizations No information. Medications No information. Problems date description facility 2022-05-05 05:10 Encounter for supervision of normal pre gnancy, [facility] unspecified, 2022-05-05 09:50 Encounter for supervision of normal pre gnancy, [facility] unspecified, 2022-05-05 09:51 Encounter for supervision of normal pre gnancy, [facility] unspecified, 2022-05-05 09:59 Encounter for supervision of normal pre gnancy, [facility] unspecified, 2022-05-05 12:14 Encounter for supervision of normal pre gnancy, [facility] unspecified, 2022-05-05 12:51 Encounter for supervision of normal pre gnancy, [facility] unspecified, 2022-05-06 08:05 Encounter for supervision of normal pre gnancy, [facility] unspecified, 2022-05-06 09:20 Encounter for supervision of normal pre gnancy, [facility] unspecified, 2022-05-06 11:07 Encounter for supervision of normal pre gnancy, [facility] unspecified, 2022-05-08 12:49 Other placental disorders, third trimes ter [facility] 2022-05-13 00:00 Poor latch on, [facility] 2022-06-17 00:00 anxiety [facility] Procedures No information. Results/Labs test date author facility value unit interpret ation Result panel 1 (unknown) (no date) (unknown) [facility] ([facility] (units ([facility]own[facility] unknown) Result panel 2 (unknown) (no (unknown) (unknown) (no value) (units (unk nown) date) unknown) (unknown) (no (unknown) (unknown) 'placenta', and (units (unknown) date) consists of a unknown) 499-gram discoid wright placenta (unknown) (no (unknown) (unknown) (units (unknown) date) unknown) (unknown) (no (unknown) (unknown) Performed at: (units (unknown) date) 01 unknown) (unknown) (no (unknown) (unknown) . 01 (units (unkno wn) date) unknown) (unknown) (no (unknown) (unknown) . (units (unkno wn) date) unknown) (unknown) (no (unknown) (unknown) /MRV 05/08/2022 (units (unknown) date) 1445 Local unknown) (unknown) (no (unknown) (unknown) 1.1 cm in (units (unkn own) date) diameter with a unknown) central insertion. The cord has a leftward coil (unknown) (no (unknown) (unknown) 10% of the (units (unk nown) date) placenta unknown) parenchyma. (unknown) (no (unknown) (unknown) 10% of the (units (unk nown) date) placental unknown) parenchyma. (unknown) (no (unknown) (unknown) [address] (units (unknown) date) unknown) (unknown) (no (unknown) (unknown) [id number]) (units (unkno wn) date) unknown) (unknown) (no (unknown) (unknown) 30-40% of the (units ( unknown) date) apparent maternal unknown) surface and involve approximately (unknown) (no (unknown) (unknown) [address] (units (unknown) date) [address], unknown) [place], [place] [id number] (unknown) (no (unknown) (unknown) [id number] (units (unkno wn) date) unknown) (unknown) (no (unknown) (unknown) A1: (units (unkno wn) date) Optomechanical Technician unknown) cord. (unknown) (no (unknown) (unknown) A2: Membrane (units (u nknown) date) roll. unknown) (unknown) (no (unknown) (unknown) A3: Full (units (unkno wn) date) thickness unknown) surface discoloration located centrally. (unknown) (no (unknown) (unknown) A4: Eccentric (units ( unknown) date) full-thickness unknown) section to include , maternal, and cut (unknown) (no (unknown) (unknown) A5: (units (unkno wn) date) Full-thickness unknown) central section with maternal and cut surface (unknown) (no (unknown) (unknown) A6-A8: (units (unkno wn) date) Optomechanical Technician unknown) normal central full-thickness sections. (AG:[id number] (unknown) (no (unknown) (unknown) [place], [place] (units ( unknown) date) [address] unknown) (unknown) (no (unknown) (unknown) CPT . (units (unkno wn) date) unknown) (unknown) (no (unknown) (unknown) Calcified (units (unkn own) date) Placenta: unknown) (unknown) (no (unknown) (unknown) Centrally (units (unkn own) date) inserted. unknown) (unknown) (no (unknown) (unknown) Chorionic (units (unkn own) date) villous unknown) maturation slightly less mature than for full-term (unknown) (no (unknown) (unknown) Collection Date: (units (unknown) date) 05/04/22 unknown) (unknown) (no (unknown) (unknown) DD/ (units (unknown) date) 2136 unknown) (unknown) (no (unknown) (unknown) Date of : (units (unknown) date) 2000 Admit unknown) Date: 05/02/22 (unknown) (no (unknown) (unknown) Diagnosis: (units (unk nown) date) unknown) (unknown) (no (unknown) (unknown) Dictated By: (units (u nknown) date) Esme Fairbanks MD unknown) (unknown) (no (unknown) (unknown) Electronically (units (unknown) date) signed: . unknown) (unknown) (no (unknown) (unknown) Gross (units (unkno wn) date) description: . unknown) (unknown) (no (unknown) (unknown) [facility] (units (unknown) date) unknown) (unknown) (no (unknown) (unknown) [facility] Access[facility] (units ( unknown) date) Number: unknown) [id number] (unknown) (no (unknown) (unknown) [facility] (units (unknown) date) [place] [facility] unknown) (unknown) (no (unknown) (unknown) Length: 65.6 cm. (units (unknown) date) unknown) (unknown) (no (unknown) (unknown) MD Ramirez (units (unkn own) date) [facility] Phone: unknown) [phone] (unknown) (no (unknown) (unknown) (units (unknown) date) Dictating Dr: unknown) Esme Fairbanks MD (unknown) (no (unknown) (unknown) MRV 05/08/2022 (units (unknown) date) 1445 Local unknown) (unknown) (no (unknown) (unknown) Marginally (units (unk nown) date) inserted. unknown) (unknown) (no (unknown) (unknown) Material (units (unkno wn) date) submitted: . unknown) (unknown) (no (unknown) (unknown) Membranes: (units (unk nown) date) unknown) (unknown) (no (unknown) (unknown) Mild, patchy (units (u nknown) date) plasma cells, unknown) non-specific etiology. (unknown) (no (unknown) (unknown) Moderate to (units (un known) date) patchy severe unknown) inter- and intravillous fibrin is present. (unknown) (no (unknown) (unknown) NPI- [id number] (units (unknown) date) unknown) (unknown) (no (unknown) (unknown) No adherent clot (units (unknown) date) is identified. unknown) Sectioning reveals a red-brown spongy cut (unknown) (no (unknown) (unknown) No definite (units (un known) date) villitis unknown) identified. (unknown) (no (unknown) (unknown) No funisitis (units (u nknown) date) identified. unknown) (unknown) (no (unknown) (unknown) No lesions are (units (unknown) date) identified. unknown) Optomechanical Technician sections are submitted as (unknown) (no (unknown) (unknown) Ordering (units (unkno wn) date) Physician: unknown) Lavern James MD (unknown) (no (unknown) (unknown) Patchy (units (unkno wn) date) calcification and unknown) fibrin are present and occupy approximately (unknown) (no (unknown) (unknown) Patchy fibrin (units ( unknown) date) and calcification unknown) are present over approximately (unknown) (no (unknown) (unknown) Pathologist (units (un known) date) provided ICD-10: unknown) (unknown) (no (unknown) (unknown) Pathology (units (unkn own) date) Diagnostic Report unknown) (unknown) (no (unknown) (unknown) Patient name: (units ( unknown) date) Keshia Chance P unknown) (unknown) (no (unknown) (unknown) Placenta (units (unkno wn) date) parenchyma: unknown) (unknown) (no (unknown) (unknown) Ruptured 3.1 cm (units (unknown) date) from the unknown) placental disc margin. (unknown) (no (unknown) (unknown) Esme Prado (units (unkno wn) date) MD Magdi, unknown) Pathologist (unknown) (no (unknown) (unknown) Signed By: (units (unk nown) date) 05/08/221806 unknown) (unknown) (no (unknown) (unknown) Signed (units (unkno wn) date) unknown) (unknown) (no (unknown) (unknown) TD/TT: 05/08/22 (units (unknown) date) 1806 unknown) (unknown) (no (unknown) (unknown) The membranes (units ( unknown) date) insert at the unknown) margin and have a point of rupture 3.1 cm from (unknown) (no (unknown) (unknown) The specimen is (units (unknown) date) received in unknown) formalin labeled with the patient's name and (unknown) (no (unknown) (unknown) Three vessels (units ( unknown) date) present. unknown) (unknown) (no (unknown) (unknown) Umbilical cord: (units (unknown) date) unknown) (unknown) (no (unknown) (unknown) Weight: 499 (units (un known) date) grams. unknown) (unknown) (no (unknown) (unknown) Z34.90 (units (unkno wn) date) unknown) (unknown) (no (unknown) (unknown) approximately (units ( unknown) date) 30% of the unknown) maternal surface both peripherally and centrally. (unknown) (no (unknown) (unknown) discolorations. (units (unknown) date) unknown) (unknown) (no (unknown) (unknown) surface is (units (unknown) date) blue-rowe with unknown) diffuse areas of pale firm discoloration (unknown) (no (unknown) (unknown) surface. (units (unknown) date) The vasculature unknown) is arborizing and unremarkable. The (unknown) (no (unknown) (unknown) follows: (units (unkno wn) date) unknown) (unknown) (no (unknown) (unknown) located (units (unkno wn) date) centrally and unknown) peripherally occupying approximately 40% of the (unknown) (no (unknown) (unknown) maternal surface (units (unknown) date) discoloration unknown) occupying less than 10% of the cut surface. (unknown) (no (unknown) (unknown) maternal surface (units (unknown) date) is apparently unknown) complete and red-brown with diffuse areas (unknown) (no (unknown) (unknown) measuring 18.8 x (units (unknown) date) 17.9 x 2.9 cm unknown) with no succenturiate lobes identified. (unknown) (no (unknown) (unknown) of pale watson firm (units (unknown) date) discoloration unknown) consistent with calcification occupying (unknown) (no (unknown) (unknown) placenta - (units (unk nown) date) CALCIFIED unknown) PLACENTA (unknown) (no (unknown) (unknown) placenta. (units (unkn own) date) unknown) (unknown) (no (unknown) (unknown) surface (units (unkno wn) date) discolorations. unknown) (unknown) (no (unknown) (unknown) surface with (units (u nknown) date) minor areas of unknown) watson firm discoloration associated with (unknown) (no (unknown) (unknown) the placental (units ( unknown) date) disc edge. The unknown) cord measures 65.6 cm in length and averages (unknown) (no (unknown) (unknown) unremarkable (units (u nknown) date) trivascular unknown) architecture. No knots are identified. The (unknown) (no (unknown) (unknown) with an index of (units (unknown) date) approximately 1 unknown) twist per 5 cm. Sectioning reveals Result panel 3 (unknown) (no date) (unknown) (unknown) 10.1 g/dl (unkn own) (unknown) (no date) (unknown) (unknown) 30.7 % (unkn own) Result panel 4 (unknown) (no (unknown) (unknown) (no value) (units (unk nown) date) unknown) (unknown) (no (unknown) (unknown) [id number] (units (unkno wn) date) unknown) (unknown) (no (unknown) (unknown) 05/05/22 0753 (units ( unknown) date) unknown) (unknown) (no (unknown) (unknown) 1: (units (unkno wn) date) unknown) (unknown) (no (unknown) (unknown) score (1 (units (unknown) date) min): 8 unknown) (unknown) (no (unknown) (unknown) score (5 (units (unknown) date) min): 9 unknown) (unknown) (no (unknown) (unknown) Age/Sex: 22 / F (units (unknown) date) unknown) (unknown) (no (unknown) (unknown) Anesthesia (units (unk nown) date) Type: Epidural unknown) (unknown) (no (unknown) (unknown) Apgars 8 at 1 (units ( unknown) date) minute and 9 at unknown) 5 minutes. 50 cc blood loss. . (unknown) (no (unknown) (unknown) weight: 8 (units (unknown) date) lb 12 oz unknown) (unknown) (no (unknown) (unknown) Cervical (units (unkno wn) date) ripening method: unknown) per Cervidil protocol (unknown) (no (unknown) (unknown) Complications: (units (unknown) date) unknown) (unknown) (no (unknown) (unknown) : 2000 (units (unknown) date) Acct:[id number] unknown) (unknown) (no (unknown) (unknown) Date of (units (unkno wn) date) Service: unknown) 05/02/22 (unknown) (no (unknown) (unknown) Delivery (units (unkno wn) date) augmentation: unknown) rupture of membranes (unknown) (no (unknown) (unknown) Delivery date: (units (unknown) date) 05/04/22 unknown) (unknown) (no (unknown) (unknown) Delivery (units (unkno wn) date) monitor: unknown) external FHT and external uterine (unknown) (no (unknown) (unknown) Epidural (units (unkno wn) date) analgesia. Mom unknown) and stable to recovery. (unknown) (no (unknown) (unknown) Episiotomy (units (unk nown) date) description: unknown) None (unknown) (no (unknown) (unknown) Cord (units (unk n) date) Vessel unknown) Description: 3 Vessels and Clamped/Cut (unknown) (no (unknown) (unknown) Position: (units (unknown) date) Right Occiput unknown) Anterior (unknown) (no (unknown) (unknown) (units (unkno wn) date) Presentation: unknown) vertex (unknown) (no (unknown) (unknown) Indication for (units (unknown) date) instrumentation: unknown) maternal exhaustion (unknown) (no (unknown) (unknown) Induction (units (unkn own) date) method: per unknown) pitocin protocol (unknown) (no (unknown) (unknown) Infant gender: (units (unknown) date) Male unknown) (unknown) (no (unknown) (unknown) [facility] (units (unknown) date) [address] unknown) [place] [address] (unknown) (no (unknown) (unknown) L+D Laceration (units (unknown) date) Description: unknown) Perineal - 2nd Degree (unknown) (no (unknown) (unknown) Labor + (units (unkno wn) date) Delivery unknown) (unknown) (no (unknown) (unknown) Narrative: (units (unk nown) date) unknown) (unknown) (no (unknown) (unknown) [place] [facility] (units (u nknown) date) unknown) (unknown) (no (unknown) (unknown) None (units (unkno wn) date) unknown) (unknown) (no (unknown) (unknown) ARNP (units (unkno wn) date) Procedure Note unknown) (unknown) (no (unknown) (unknown) Patient (units (unkno wn) date) complete and unknown) pushed for 1 hour and 40 minutes. At 9:36 p.m., a live (unknown) (no (unknown) (unknown) Patient: (units (unkno wn) date) Keshia Chance P unknown) MR#: [id number] (unknown) (no (unknown) (unknown) Placenta (units (unkno wn) date) delivered intact unknown) with a three-vessel cord at 9:44 p.m. Pitocin was (unknown) (no (unknown) (unknown) Placenta (units (unkno wn) date) delivery unknown) description: Spontaneous (unknown) (no (unknown) (unknown) Plan for (units (unkno wn) date) aftercare: unknown) Routine care (unknown) (no (unknown) (unknown) (units (unk nown) date) unknown) (unknown) (no (unknown) (unknown) (units (unkno wn) date) Events: Other unknown) (completely calcified placenta) (unknown) (no (unknown) (unknown) (units (unkno wn) date) unknown) (unknown) (no (unknown) (unknown) Provider: (units ( own) ) Lavern James unknown) (unknown) (no (unknown) (unknown) Quantitative (units (u nknown) date) Blood Loss: 50 unknown) (unknown) (no (unknown) (unknown) Route of (units (unkno wn) date) delivery: vacuum unknown) extraction (unknown) (no (unknown) (unknown) Signed (units (unkno wn) date) By:<Electronical unknown) ly signed by Lavern James MD> (unknown) (no (unknown) (unknown) abdomen. The (units (u nknown) date) cord was double unknown) clamped and cut. Cord bloods were obtained. (unknown) (no (unknown) (unknown) given in the IV (units (unknown) date) fluids. The unknown) fundus was massaged to firm. A second-degree (unknown) (no (unknown) (unknown) male (units (un known) date) delivered over unknown) an intact perineum, in the KRYSTAL presentation, with (unknown) (no (unknown) (unknown) perineal (units (unkno wn) date) laceration was unknown) repaired in the usual fashion. Hemostasis was achieved. (unknown) (no (unknown) (unknown) remainder of (units (u nknown) date) the body unknown) delivered without difficulty and was placed on mom's (unknown) (no (unknown) (unknown) vacuum (units (unkno wn) date) assistance. unknown) There were 3 pulls with 1 pop-off. No nuchal cord. The Result panel 5 (unknown) (no (unknown) (unknown) (no value) (units (unk nown) date) unknown) (unknown) (no (unknown) (unknown) (DME) Double (units (u nknown) date) Electric Breast unknown) Pump (unknown) (no (unknown) (unknown) [id number] (units (unkno wn) date) unknown) (unknown) (no (unknown) (unknown) 1 cap PO Q6H PRN (units (unknown) date) (Reason: headache) unknown) Qty: 10 0RF (unknown) (no (unknown) (unknown) 1 ea topical .prn (units (unknown) date) Qty: 1 0RF unknown) (unknown) (no (unknown) (unknown) 1 tab PO DAILY (units (unknown) date) unknown) (unknown) (no (unknown) (unknown) 05/02/22 20:31 (units (unknown) date) unknown) (unknown) (no (unknown) (unknown) 05/05/22 06:40 (units (unknown) date) unknown) (unknown) (no (unknown) (unknown) 05/05/22 22:07 (units (unknown) date) unknown) (unknown) (no (unknown) (unknown) 05/24/22 1915 (units ( unknown) date) unknown) (unknown) (no (unknown) (unknown) 06/17/2022 @ 1500 (units (unknown) date) with Dr. James) unknown) (unknown) (no (unknown) (unknown) 125 mcg PO DAILY (units (unknown) date) unknown) (unknown) (no (unknown) (unknown) 1: (units (unkno wn) date) unknown) (unknown) (no (unknown) (unknown) 2 cap PO Q4-6H (units (unknown) date) PRN (Reason: unknown) headache) Qty: 30 0RF (unknown) (no (unknown) (unknown) 2021 her (units (u nknown) date) cervix was still unknown) unfavorable she received a second Cervidil. On (unknown) (no (unknown) (unknown) 4 mg PO Q6H PRN (units (unknown) date) (Reason: nausea unknown) and vomiting) Qty: 20 2RF (unknown) (no (unknown) (unknown) 40-1/7 weeks (units (u nknown) date) gestation unknown) (unknown) (no (unknown) (unknown) Activity: Nothing (units (unknown) date) in the vagina for unknown) 6 weeks (unknown) (no (unknown) (unknown) Age/Sex: 22 / F (units (unknown) date) unknown) (unknown) (no (unknown) (unknown) Artificial (units (unk nown) date) rupture of unknown) membranes (unknown) (no (unknown) (unknown) Calcified (units (unkn own) date) placenta unknown) (unknown) (no (unknown) (unknown) Cervidil cervical (units (unknown) date) ripening x2 unknown) (unknown) (no (unknown) (unknown) Cervidil cervical (units (unknown) date) ripening unknown) (unknown) (no (unknown) (unknown) Cognitive/behavio (units (unknown) date) ral status at unknown) discharge: oriented (unknown) (no (unknown) (unknown) Comment: (units (unkno wn) date) unknown) (unknown) (no (unknown) (unknown) Consult to (units (unk nown) date) unknown) Dredge Pipeman Routine (unknown) (no (unknown) (unknown) Consults: (units (unkn own) date) unknown) (unknown) (no (unknown) (unknown) Continued (units (unkn own) date) unknown) (unknown) (no (unknown) (unknown) : 2000 (units (unknown) date) Acct:[id number] unknown) (unknown) (no (unknown) (unknown) Date Patient (units (u nknown) date) Seen: 05/06/22 unknown) (unknown) (no (unknown) (unknown) Date of Service: (units (unknown) date) 05/02/22 unknown) (unknown) (no (unknown) (unknown) Date of (units (unkno wn) date) admission: unknown) (unknown) (no (unknown) (unknown) Diagnoses: (units (unk nown) date) unknown) (unknown) (no (unknown) (unknown) Diet/Activity/Colin (units (unknown) date) atments unknown) (unknown) (no (unknown) (unknown) Diet: Regular (units ( unknown) date) unknown) (unknown) (no (unknown) (unknown) Discharge Data (units (unknown) date) unknown) (unknown) (no (unknown) (unknown) Discharge Date: (units (unknown) date) 05/06/22 unknown) (unknown) (no (unknown) (unknown) Discharge Plan (units (unknown) date) unknown) (unknown) (no (unknown) (unknown) Discharge (units (unkn own) date) Providers unknown) (unknown) (no (unknown) (unknown) Discharge Summary (units (unknown) date) unknown) (unknown) (no (unknown) (unknown) Discharge orders (units (unknown) date) + Medications unknown) (unknown) (no (unknown) (unknown) Discharge (units (unkn own) date) provider: unknown) (unknown) (no (unknown) (unknown) Discontinued (units (u nknown) date) unknown) (unknown) (no (unknown) (unknown) Disposition of (units (unknown) date) : home unknown) (unknown) (no (unknown) (unknown) Episiotomy (units (unk nown) date) description: None unknown) (unknown) (no (unknown) (unknown) Exam Narrative: (units (unknown) date) unknown) (unknown) (no (unknown) (unknown) Exam (units (unkno wn) date) unknown) (unknown) (no (unknown) (unknown) Extremities: 1+ (units (unknown) date) edema, negative unknown) Homans (unknown) (no (unknown) (unknown) Follow (units (unkno wn) date) up/Referrals: unknown) (unknown) (no (unknown) (unknown) Functional status (units (unknown) date) at discharge: unknown) independent ambulation (unknown) (no (unknown) (unknown) Fundus: Firm at U (units (unknown) date) -1 unknown) (unknown) (no (unknown) (unknown) Lavern James, (units (unknown) date) [Physician] - 6 unknown) Weeks (6 week post appointment on (unknown) (no (unknown) (unknown) Gender: Male (units (u nknown) date) unknown) (unknown) (no (unknown) (unknown) Generally: (units (unk nown) date) Patient is sitting unknown) up in bed, holding infant, no acute distress (unknown) (no (unknown) (unknown) Hospital Course (units (unknown) date) unknown) (unknown) (no (unknown) (unknown) Hospital Course: (units (unknown) date) unknown) (unknown) (no (unknown) (unknown) Ibuprofen 600mg (units (unknown) date) every 6 hours as unknown) needed for cramping (unknown) (no (unknown) (unknown) Infant Delivery (units (unknown) date) Method: Assisted unknown) Delivery (Vacuum) (unknown) (no (unknown) (unknown) Instructions: DI (units (unknown) date) for Labor and unknown) Delivery, Vaginal (unknown) (no (unknown) (unknown) [facility] (units (unknown) date) [address] unknown) [place] [address] (unknown) (no (unknown) (unknown) Lavern James, (units (unknown) date) unknown) (unknown) (no (unknown) (unknown) Labs (units (unkno wn) date) unknown) (unknown) (no (unknown) (unknown) Laceration (units (unk nown) date) Description: unknown) Perineal - 2nd Degree (unknown) (no (unknown) (unknown) [id number]-[id number] (units (unknown) date) onal-age infant unknown) (unknown) (no (unknown) (unknown) Narrative (units (unkn own) date) unknown) (unknown) (no (unknown) (unknown) (units (unkno wn) date) unknown) (unknown) (no (unknown) (unknown) No Action (units (unkn own) date) unknown) (unknown) (no (unknown) (unknown) Objective (units (unkn own) date) unknown) (unknown) (no (unknown) (unknown) May 04, 2022 (units (unknown) date) she was 3 cm/80% unknown) effaced/-1 station. Artificial rupture of (unknown) (no (unknown) (unknown) May 04, 2022. (units (unknown) date) She had a unknown) second-degree perineal laceration which was (unknown) (no (unknown) (unknown) May 06, 2022. (units (unknown) date) unknown) (unknown) (no (unknown) (unknown) Overall status at (units (unknown) date) discharge: patient unknown) is progressing back to baseline (unknown) (no (unknown) (unknown) Patient (units (unkno wn) date) Disposition: Home unknown) (unknown) (no (unknown) (unknown) Patient is a (units (u nknown) date) 22-year-old unknown) 1 para 1 who presented on May 02, 2022 for (unknown) (no (unknown) (unknown) Patient: (units (unkno wn) date) Gladys Chanceh P unknown) MR#: [id number] (unknown) (no (unknown) (unknown) Peripartum Data (units (unknown) date) unknown) (unknown) (no (unknown) (unknown) Pitocin induction (units (unknown) date) of labor unknown) (unknown) (no (unknown) (unknown) (units (unk nown) date) complications: unknown) none (unknown) (no (unknown) (unknown) Prescriptions: (units (unknown) date) unknown) (unknown) (no (unknown) (unknown) Primary Care (units (u nknown) date) Provider: unknown) ProviderRosa (unknown) (no (unknown) (unknown) Primary care (units (u nknown) date) physician: unknown) (unknown) (no (unknown) (unknown) Procedures: (units (un known) date) unknown) (unknown) (no (unknown) (unknown) Provider (units (unkno wn) date) Discharge Comment: unknown) Call with fever, chills or bleeding vaginally more (unknown) (no (unknown) (unknown) Provider (units (unkno wn) date) unknown) (unknown) (no (unknown) (unknown) Provider,Rosa (units (unknown) date) JONO [Primary Care unknown) Provider] (unknown) (no (unknown) (unknown) Provider: (units (unkn own) date) Lavern James unknown) (unknown) (no (unknown) (unknown) Push fluids (units (un known) date) unknown) (unknown) (no (unknown) (unknown) Report to your (units (unknown) date) healthcare unknown) provider any signs of infection, such as:: chills, (unknown) (no (unknown) (unknown) Result Diagrams: (units (unknown) date) unknown) (unknown) (no (unknown) (unknown) Rx Instructions: (units (unknown) date) unknown) (unknown) (no (unknown) (unknown) Second degree (units ( unknown) date) perineal unknown) laceration repair (unknown) (no (unknown) (unknown) Second-degree (units ( unknown) date) perineal unknown) laceration (unknown) (no (unknown) (unknown) See Rx (units (unkno wn) date) Instructions unknown) .Route .MEDSUPPLY Qty: 1 0RF (unknown) (no (unknown) (unknown) Signed (units (unkno wn) date) By:<Electronically unknown) signed by Lavern James MD> (unknown) (no (unknown) (unknown) Skin/Wound/Dressi (units (unknown) date) ng Care unknown) (unknown) (no (unknown) (unknown) Stand Alone (units (un known) date) Forms: Discharge: unknown) Care (unknown) (no (unknown) (unknown) Status at (units (unkn own) date) Discharge unknown) (unknown) (no (unknown) (unknown) Summary (units (unkno wn) date) unknown) (unknown) (no (unknown) (unknown) Time Patient (units (u nknown) date) Seen: 07:40 unknown) (unknown) (no (unknown) (unknown) Time Spent with (units (unknown) date) Patient unknown) (unknown) (no (unknown) (unknown) Time attestation: (units (unknown) date) unknown) (unknown) (no (unknown) (unknown) Time spent: Less (units (unknown) date) than 30 minutes unknown) (unknown) (no (unknown) (unknown) Total time spent (units (unknown) date) providing and/or unknown) coordinating discharge services: (unknown) (no (unknown) (unknown) Tylenol 650mg (units ( unknown) date) every 6 hours as unknown) needed (unknown) (no (unknown) (unknown) Vacuum assisted (units (unknown) date) vaginal delivery unknown) (unknown) (no (unknown) (unknown) Visit (units (unkno wn) date) Report/Discharge unknown) Packet (unknown) (no (unknown) (unknown) Rosa [place] (units (un known) date) Provider unknown) (unknown) (no (unknown) (unknown) Myles Sullivan, (units (unknown) date) [Physician] - unknown) 06/17/22 9:15 am (unknown) (no (unknown) (unknown) With supplies (units ( unknown) date) unknown) (unknown) (no (unknown) (unknown) [Embedded Image (units (unknown) date) Not Available] unknown) (unknown) (no (unknown) (unknown) butalbital-acetam (units (unknown) date) inophen-caff unknown) [Fioricet] 50-300-40 mg capsule (unknown) (no (unknown) (unknown) cervical ripening (units (unknown) date) at 40-,1/7 weeks unknown) gestation due to a calcified placenta. She (unknown) (no (unknown) (unknown) cholecalciferol (units (unknown) date) (vitamin D3) 125 unknown) mcg (5,000 unit) capsule (unknown) (no (unknown) (unknown) complete dilation (units (unknown) date) and had a vacuum unknown) assisted vaginal delivery at 9:36 p.m. on (unknown) (no (unknown) (unknown) do not exceed 6 (units (unknown) date) caps per day unknown) (unknown) (no (unknown) (unknown) double electric (units (unknown) date) breast pump unknown) (unknown) (no (unknown) (unknown) fever, increased (units (unknown) date) pain and unusual unknown) drainage (unknown) (no (unknown) (unknown) membranes was (units ( unknown) date) performed with unknown) copious clear amniotic fluid. She progressed to (unknown) (no (unknown) (unknown) ondansetron HCl 4 (units (unknown) date) mg tablet unknown) (unknown) (no (unknown) (unknown) prenat.vits,lizbet,m (units (unknown) date) to-baas-hsrnz unknown) Tablet (unknown) (no (unknown) (unknown) received a (units (unk n) date) Cervidil overnight unknown) on May 02, 2022. On the morning of April (unknown) (no (unknown) (unknown) repaired. Her (units ( unknown) date) course unknown) was unremarkable. She was discharged home on (unknown) (no (unknown) (unknown) than a pad in an (units (unknown) date) hour unknown) (unknown) (no (unknown) (unknown) vitamin B complex (units (unknown) date) [B Complex-Vitamin unknown) B12] Tablet Result panel 6 (unknown) (no (unknown) (unknown) (no value) (units (unk nown) date) unknown) (unknown) (no (unknown) (unknown) (+10 lb) 118/72 (units (unknown) date) N unknown) (unknown) (no (unknown) (unknown) (+11 lb) 118/62 (units (unknown) date) N unknown) (unknown) (no (unknown) (unknown) (+17 lb) 116/72 (units (unknown) date) N unknown) (unknown) (no (unknown) (unknown) (+21 lb) 122/68 (units (unknown) date) N unknown) (unknown) (no (unknown) (unknown) (+27 lb 4 oz) (units ( unknown) date) 128/68 unknown) (unknown) (no (unknown) (unknown) (+35 lb 2 oz) (units ( unknown) date) 106/60 N unknown) (unknown) (no (unknown) (unknown) (+39 lb) 118/60 (units (unknown) date) N unknown) (unknown) (no (unknown) (unknown) (+44 lb) 130/66 (units (unknown) date) TR unknown) (unknown) (no (unknown) (unknown) (+46 lb) 118/76 (units (unknown) date) N unknown) (unknown) (no (unknown) (unknown) (+47 lb) 128/76 (units (unknown) date) N unknown) (unknown) (no (unknown) (unknown) (+51 lb) 128/84 (units (unknown) date) N unknown) (unknown) (no (unknown) (unknown) (+53 lb) 134/68 (units (unknown) date) 1 unknown) (unknown) (no (unknown) (unknown) (+55 lb) 144/62 (units (unknown) date) N unknown) (unknown) (no (unknown) (unknown) (+8 lb) 114/78 N (units (unknown) date) unknown) (unknown) (no (unknown) (unknown) Genetic (units (unkn own) date) Screening/Teratol unknown) ogy Counseling - Includes patient, baby's father, or (unknown) (no (unknown) (unknown) -?-?-?-?-?-?-?-? (units (unknown) date) -?-?-?-? unknown) (unknown) (no (unknown) (unknown) 10/01/21 (units (unkno wn) date) unknown) (unknown) (no (unknown) (unknown) 10/22/21 (units (unkno wn) date) unknown) (unknown) (no (unknown) (unknown) [id number] (units (unkno wn) date) unknown) (unknown) (no (unknown) (unknown) 11/19/21 (units (unkno wn) date) unknown) (unknown) (no (unknown) (unknown) 12/12/21 (units (unkno wn) date) unknown) (unknown) (no (unknown) (unknown) 01/15/22 (units (unkno wn) date) unknown) (unknown) (no (unknown) (unknown) 02/07/22 (units (unkno wn) date) unknown) (unknown) (no (unknown) (unknown) 03/05/22 (units (unkno wn) date) unknown) (unknown) (no (unknown) (unknown) 03/19/22 (units (unkno wn) date) unknown) (unknown) (no (unknown) (unknown) 04/01/22 (units (unkno wn) date) unknown) (unknown) (no (unknown) (unknown) 04/09/22 (units (unkno wn) date) unknown) (unknown) (no (unknown) (unknown) 1 wk (units (unkno wn) date) unknown) (unknown) (no (unknown) (unknown) 04/17/22 (units (unkno wn) date) unknown) (unknown) (no (unknown) (unknown) 04/23/22 (units (unkno wn) date) unknown) (unknown) (no (unknown) (unknown) 04/28/22 (units (unkno wn) date) unknown) (unknown) (no (unknown) (unknown) 05/02/22 (units (unkno wn) date) unknown) (unknown) (no (unknown) (unknown) 06/17/22 (units (unkno wn) date) unknown) (unknown) (no (unknown) (unknown) 12w 4d 175 lb (units ( unknown) date) unknown) (unknown) (no (unknown) (unknown) 16w 4d 173 lb (units ( unknown) date) unknown) (unknown) (no (unknown) (unknown) 19w 6d 182 lb (units ( unknown) date) unknown) (unknown) (no (unknown) (unknown) 24w 5d 186 lb (units ( unknown) date) unknown) (unknown) (no (unknown) (unknown) 28w 0d 192 lb 4 (units (unknown) date) oz unknown) (unknown) (no (unknown) (unknown) 10/01/2021: [facility] (units (unknown) date) referral for unknown) anxiety (unknown) (no (unknown) (unknown) 31w 5d 200 lb 2 (units (unknown) date) oz unknown) (unknown) (no (unknown) (unknown) 33w 5d 204 lb (units ( unknown) date) unknown) (unknown) (no (unknown) (unknown) 35w 4d 209 lb (units ( unknown) date) unknown) (unknown) (no (unknown) (unknown) 36w 5d 211 lb (units ( unknown) date) unknown) (unknown) (no (unknown) (unknown) 37w 6d 212 lb (units ( unknown) date) unknown) (unknown) (no (unknown) (unknown) 38w 5d 218 lb (units ( unknown) date) unknown) (unknown) (no (unknown) (unknown) 39w 3d 216 lb (units ( unknown) date) unknown) (unknown) (no (unknown) (unknown) 39w2d (units (unkno wn) date) unknown) (unknown) (no (unknown) (unknown) 40w 0d 220 lb (units ( unknown) date) unknown) (unknown) (no (unknown) (unknown) 6wk PP visit (units (u nknown) date) unknown) (unknown) (no (unknown) (unknown) 88th percentile (units (unknown) date) but they were unknown) unable to see portions of the anatomy therefore a (unknown) (no (unknown) (unknown) 9w 4d 176 lb (units (u nknown) date) unknown) (unknown) (no (unknown) (unknown) Abnormal lab (units (u nknown) date) values 1st unknown) trimester: discussed (unknown) (no (unknown) (unknown) Abnormal lab (units (u nknown) date) values 2nd unknown) trimester: discussed (unknown) (no (unknown) (unknown) Add'l Plan (units (unk nown) date) Details unknown) (unknown) (no (unknown) (unknown) Age/Sex: 22 / F (units (unknown) date) Date of Service: unknown) (unknown) (no (unknown) (unknown) Allergies (units (unkn own) date) unknown) (unknown) (no (unknown) (unknown) [place] (units ( unknown) date) [id number] unknown) (unknown) (no (unknown) (unknown) Aneuploidy (units (unk nown) date) Screening unknown) Offered: Accepted (If insurance covers) (unknown) (no (unknown) (unknown) Anticipate (units (unknown) date) [facility] unknown) Center (unknown) (no (unknown) (unknown) Anticipated (units (un known) date) course of unknown) care: discussed (unknown) (no (unknown) (unknown) Anxiety (units (unkno wn) date) unknown) (unknown) (no (unknown) (unknown) Assessment and (units (unknown) date) Plan unknown) (unknown) (no (unknown) (unknown) Asthma (units (unkno wn) date) unknown) (unknown) (no (unknown) (unknown) Attending Dr: (units ( unknown) date) Myles Sullivan unknown) (unknown) (no (unknown) (unknown) Behavioral (units (unk nown) date) Health unknown) integration program was reviewed with this patient, including (unknown) (no (unknown) (unknown) (units (unkno wn) date) Plan/Preferences unknown) (unknown) (no (unknown) (unknown) Planning (units (unknown) date) unknown) (unknown) (no (unknown) (unknown) Childbirth (units (unk nown) date) Classes: unknown) discussed (unknown) (no (unknown) (unknown) Current Estimate (units (unknown) date) 05/02/22 unknown) Ultrasound #1 46w 4d (unknown) (no (unknown) (unknown) Current (units (unkno wn) date) History unknown) (unknown) (no (unknown) (unknown) : 2000 (units (unknown) date) Acct:[id number] unknown) (unknown) (no (unknown) (unknown) Date of positive (units (unknown) date) home unknown) test: 08/23/21 (unknown) (no (unknown) (unknown) Date (units (unkno wn) date) unknown) (unknown) (no (unknown) (unknown) Denies Congenital (units (unknown) date) Heart Defect, unknown) Denies Down Syndrome, Denies Muscular Dystrophy, (unknown) (no (unknown) (unknown) Denies Maternal (units (unknown) date) Metabolic unknown) Disorder (EG,TYPE 1 Diabetes, PKU), Denies Patient or (unknown) (no (unknown) (unknown) Denies Neural (units ( unknown) date) Tube Defect unknown) (Meningomyelocele , Spina Bifida, or Anencephaly), (unknown) (no (unknown) (unknown) Denies Sickle (units ( unknown) date) Cell Disease or unknown) Trait (), Denies Hemophilia or other blood (unknown) (no (unknown) (unknown) Denies Randell-Sachs (units (unknown) date) (Ashkenazi unknown) Yazidism, [place], [place]), Denies Agnes (unknown) (no (unknown) (unknown) Denies other (units (u nknown) date) unknown) (unknown) (no (unknown) (unknown) Denies over the (units (unknown) date) counter unknown) medications, Denies alcohol, Denies illicit drugs and (unknown) (no (unknown) (unknown) Depression: (units (un known) date) discussed unknown) (unknown) (no (unknown) (unknown) Dept at (units (unkno wn) date) . unknown) (unknown) (no (unknown) (unknown) Diet and (units (unkno wn) date) Exercise unknown) (unknown) (no (unknown) (unknown) Discussed when (units (unknown) date) to call if labor unknown) ensues. 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), (unknown) (no (unknown) (unknown) Documented By: (units (unknown) date) Myles Sullivna unknown) 06/17/22 0933 (unknown) (no (unknown) (unknown) Draft (units (unkno wn) date) unknown) (unknown) (no (unknown) (unknown) Dysmenorrhea (units (u nknown) date) unknown) (unknown) (no (unknown) (unknown) MARION Calculator (units (unknown) date) unknown) (unknown) (no (unknown) (unknown) EGA Weight BP (units ( unknown) date) UGlucose unknown) (unknown) (no (unknown) (unknown) Eating disorder (units (unknown) date) unknown) (unknown) (no (unknown) (unknown) Estimated (units (unkn own) date) Delivery Date unknown) Method Current (unknown) (no (unknown) (unknown) Exercise and (units (u nknown) date) activity, unknown) work/environmenta l/hazards, Sexual activity, X-ray (unknown) (no (unknown) (unknown) Expected (units (unkno wn) date) Delivery unknown) Route/Plan (unknown) (no (unknown) (unknown) Family History (units (unknown) date) (Reviewed unknown) 02/07/22 @ 16:35 by Eagle Duong RN) (unknown) (no (unknown) (unknown) Father (units (unkno wn) date) Hypertension unknown) (unknown) (no (unknown) (unknown) Father of Baby: (units (unknown) date) Shepard unknown) (unknown) (no (unknown) (unknown) [facility] ([facility] unknown) (unknown) (no (unknown) (unknown) Fioricet and (units (u nknown) date) reduction of her unknown) work hours. She denies contractions, bleeding, (unknown) (no (unknown) (unknown) First Trimester (units (unknown) date) Education unknown) Checklist (unknown) (no (unknown) (unknown) (units (unkno wn) date) unknown) (unknown) (no (unknown) (unknown) Genetic (units (unkno wn) date) Screening + unknown) Counseling (unknown) (no (unknown) (unknown) Genetic (units (unkno wn) date) Screening unknown) (unknown) (no (unknown) (unknown) Good (units (unk nown) date) movement now. No unknown) headaches, scotomata, epigastric pain. Routine (unknown) (no (unknown) (unknown) Grandmother (units (un known) date) Breast cancer unknown) (unknown) (no (unknown) (unknown) 1 (units (unkn own) date) Multiple births unknown) (unknown) (no (unknown) (unknown) H/O laparoscopy (units (unknown) date) unknown) (unknown) (no (unknown) (unknown) HIV risk (units (unkno wn) date) evaluation: low unknown) risk (unknown) (no (unknown) (unknown) Health Center (units ( unknown) date) Education unknown) (unknown) (no (unknown) (unknown) Health center (units ( unknown) date) information: unknown) nature of practice discussed, personnel (unknown) (no (unknown) (unknown) Hepatitis C risk (units (unknown) date) evaluation: low unknown) risk (unknown) (no (unknown) (unknown) History of (units (unk nown) date) Hepatitis B: No unknown) (unknown) (no (unknown) (unknown) History of (units (unk nown) date) Hepatitis C: No unknown) (unknown) (no (unknown) (unknown) History of (units (unk nown) date) mandibular unknown) surgery (unknown) (no (unknown) (unknown) Hospital: [facility] (units (u nknown) date) unknown) (unknown) (no (unknown) (unknown) [facility] (units (u nknown) date) Chorea, Denies unknown) Other inherited genetic or chromosomal disorder, (unknown) (no (unknown) (unknown) Hx # (units (u nknown) date) Pregnancies unknown) Elective abortions (unknown) (no (unknown) (unknown) Hx # Term (units (unkn own) date) Pregnancies unknown) Ectopic pregnancies (unknown) (no (unknown) (unknown) Infant will be (units (unknown) date) adopted?: no unknown) (unknown) (no (unknown) (unknown) Infection (units (unkn own) date) History unknown) (unknown) (no (unknown) (unknown) Infectious (units (unk nown) date) Disease Education unknown) (unknown) (no (unknown) (unknown) Infectious (units (unk nown) date) disease exposure: unknown) chicken pox immunity discussed, tuberculosis (unknown) (no (unknown) (unknown) Initial Weight: (units (unknown) date) 165 lb unknown) (unknown) (no (unknown) (unknown) Initials (units (unkno wn) date) unknown) (unknown) (no (unknown) (unknown) Intake Clinical (units (unknown) date) Staff unknown) (unknown) (no (unknown) (unknown) Intake Note: (units (u nknown) date) unknown) (unknown) (no (unknown) (unknown) Intake performed (units (unknown) date) by: Kevin Us unknown) (unknown) (no (unknown) (unknown) Intake (units (unkno wn) date) unknown) (unknown) (no (unknown) (unknown) LM (units (unkno wn) date) unknown) (unknown) (no (unknown) (unknown) Labor (units (unkno wn) date) precautions unknown) reviewed and follow-up will be in 1 week or as needed. (unknown) (no (unknown) (unknown) Live with (units (unkn own) date) someone with TB unknown) or exposed to TB: No (unknown) (no (unknown) (unknown) Loc: [facility] (units (unkno wn) date) unknown) (unknown) (no (unknown) (unknown) Marital status: (units (unknown) date) unmarried,living unknown) together (October) (unknown) (no (unknown) (unknown) Medical History (units (unknown) date) (Reviewed unknown) 02/07/22 @ 16:35 by Eagle Duong RN) (unknown) (no (unknown) (unknown) Mother Mental (units ( unknown) date) health problem unknown) (unknown) (no (unknown) (unknown) N No no 156 16 (units (unknown) date) N/A 4 wks. unknown) (unknown) (no (unknown) (unknown) N No no 162 12 (units (unknown) date) N/A 4 wks unknown) (unknown) (no (unknown) (unknown) N No no 3 wks (units ( unknown) date) unknown) (unknown) (no (unknown) (unknown) N Yes 128 37 (units (u nknown) date) Vertex absent unknown) c50/-2 1wk (unknown) (no (unknown) (unknown) N Yes no 146 37 (units (unknown) date) Vertex GBS unknown) NEGATIVE 1 (unknown) (no (unknown) (unknown) N Yes no 148 25 (units (unknown) date) N/A 4 wks unknown) (unknown) (no (unknown) (unknown) N Yes no 148 32 (units (unknown) date) Uncertain 2 wks unknown) (unknown) (no (unknown) (unknown) N Yes no 150 36 (units (unknown) date) Vertex 1 wk unknown) (unknown) (no (unknown) (unknown) N Yes no 152 34 (units (unknown) date) Vertex 2 wks unknown) (unknown) (no (unknown) (unknown) N Yes no 154 20 (units (unknown) date) N/A 4 wks unknown) (unknown) (no (unknown) (unknown) N Yes yes 132 39 (units (unknown) date) Vertex absent unknown) /-2 (unknown) (no (unknown) (unknown) NF (units (unkno wn) date) unknown) (unknown) (no (unknown) (unknown) No Known Drug (units ( unknown) date) Allergies Allergy unknown) (Unverified 05/02/22 14:17) (unknown) (no (unknown) (unknown) Notes (units (unkno wn) date) unknown) (unknown) (no (unknown) (unknown) Number of Living (units (unknown) date) Children unknown) (unknown) (no (unknown) (unknown) Number of (units (unkn own) date) fetuses:: Single unknown) (unknown) (no (unknown) (unknown) Nutrition and (units ( unknown) date) weight gain unknown) counseling: special diet: discussed (unknown) (no (unknown) (unknown) OB Office Visit (units (unknown) date) unknown) (unknown) (no (unknown) (unknown) OB Visit Log (units (u nknown) date) unknown) (unknown) (no (unknown) (unknown) On control (units (unknown) date) at conception?: unknown) No (unknown) (no (unknown) (unknown) Other Estimates (units (unknown) date) 04/11/22 LMP unknown) (Uncertain) 49w 4d (unknown) (no (unknown) (unknown) PFSH (units (unkno wn) date) unknown) (unknown) (no (unknown) (unknown) PTL precautions (units (unknown) date) reviewed. Orders unknown) placed for 1 hour GDM screen CBC. Follow-up (unknown) (no (unknown) (unknown) PVCs (premature (units (unknown) date) ventricular unknown) contractions) (unknown) (no (unknown) (unknown) Para 0 (units (unkno wn) date) Spontaneous unknown) abortions (unknown) (no (unknown) (unknown) Partner history (units (unknown) date) of STD: denies hx unknown) (unknown) (no (unknown) (unknown) Partner history (units (unknown) date) of genital unknown) herpes: No (unknown) (no (unknown) (unknown) Partner: Devyn (units (unknown) date) Mario Alberto unknown) (unknown) (no (unknown) (unknown) Patient comes in (units (unknown) date) at 37 weeks 6 unknown) days for routine OB visit. She had a (unknown) (no (unknown) (unknown) Patient seen at (units (unknown) date) [facility] unknown) for decreased movement with reactive (unknown) (no (unknown) (unknown) Patient (units (unkno wn) date) verbalizes unknown) consent for this referral. MARION corrected to 05/02/2022 based (unknown) (no (unknown) (unknown) Patient very (units (u nknown) date) uncomfortable unknown) with contractions but they do not come more (unknown) (no (unknown) (unknown) Patient's age 33 (units (unknown) date) years or older as unknown) of estimated date of delivery: No (unknown) (no (unknown) (unknown) Patient: (units (unkno wn) date) Keshia Chance P unknown) MR#: [id number] (unknown) (no (unknown) (unknown) Pelvic pain in (units (unknown) date) female unknown) (unknown) (no (unknown) (unknown) Personal history (units (unknown) date) of STD: denies hx unknown) (unknown) (no (unknown) (unknown) Personal history (units (unknown) date) of genital unknown) herpes: No (unknown) (no (unknown) (unknown) Placenta previa (units (unknown) date) unknown) (unknown) (no (unknown) (unknown) Plan: NST. (units (unk nown) date) Induction. unknown) (unknown) (no (unknown) (unknown) (units (unkn own) date) History unknown) (unknown) (no (unknown) (unknown) type:: (units (unknown) date) First unknown) (unknown) (no (unknown) (unknown) (units (unkno wn) date) Education unknown) (unknown) (no (unknown) (unknown) Initial (units (unknown) date) Assessment unknown) (unknown) (no (unknown) (unknown) (units (unkno wn) date) Specific unknown) Issues/Plans (unknown) (no (unknown) (unknown) (units (unkno wn) date) Testing: unknown) discussed (unknown) (no (unknown) (unknown) Visit (units (unknown) date) unknown) (unknown) (no (unknown) (unknown) (units (unkno wn) date) classes: Yes unknown) (unknown) (no (unknown) (unknown) (units (unkno wn) date) education packet: unknown) Child education/plan, symptoms, (unknown) (no (unknown) (unknown) Primary Care (units (u nknown) date) Provider: JONO unknown) Rosa (unknown) (no (unknown) (unknown) Primary Ob (units (unk nown) date) Provider: unknown) Myles Sullivan (unknown) (no (unknown) (unknown) Providers (units (unkn own) date) unknown) (unknown) (no (unknown) (unknown) Pt presents for (units (unknown) date) a routine PNV at unknown) 40 wks gestation. Good FM. No LOF/VB or (unknown) (no (unknown) (unknown) Rash or viral (units ( unknown) date) illness since unknown) last menstrual period: No (unknown) (no (unknown) (unknown) Reason For Visit (units (unknown) date) unknown) (unknown) (no (unknown) (unknown) Recent travel (units ( unknown) date) outside of unknown) country?: No (unknown) (no (unknown) (unknown) Recurrent (units (unkn own) date) loss or unknown) a stillbirth: No (unknown) (no (unknown) (unknown) Safety (units (unkno wn) date) unknown) (unknown) (no (unknown) (unknown) Keshia and (units (u nknown) date) Shepard presents unknown) today for her MAX visit now at 12 weeks 4 (unknown) (no (unknown) (unknown) Keshia and (units (u nknown) date) Shepard return unknown) today for her MAX visit now 20 4+5 weeks (unknown) (no (unknown) (unknown) Keshia and (units (u nknown) date) Shepard return unknown) today for her MAX visit now at 19+ 6 weeks (unknown) (no (unknown) (unknown) Keshia and (units (u nknown) date) Shepard returns unknown) today for her MAX now at 28+ 0 weeks (unknown) (no (unknown) (unknown) Keshia and (units (u nknown) date) Shepard returns unknown) today for her MAX visit now at 36+ 5 weeks (unknown) (no (unknown) (unknown) Keshia (units (unkno wn) date) presents today unknown) for her initial OB visit now at 9 weeks 4 days (unknown) (no (unknown) (unknown) Keshia (units (unkno wn) date) presents today unknown) for routine OB visit at 39w3d. She reports (unknown) (no (unknown) (unknown) Keshia returns (units (unknown) date) for her MAX visit unknown) now at 33+5 weeks EGA. She is had no (unknown) (no (unknown) (unknown) Keshia returns (units (unknown) date) today for her MAX unknown) visit now 30 1+5 weeks gestational age. (unknown) (no (unknown) (unknown) Keshia returns (units (unknown) date) today for her MAX unknown) visit now at 16 weeks 4 days (unknown) (no (unknown) (unknown) Keshia returns (units (unknown) date) today for her MAX unknown) visit now at 35+ 4 weeks gestational (unknown) (no (unknown) (unknown) Seatbelt use and (units (unknown) date) Influenza vaccine unknown) (Had flu vaccine, 1st 2 Covid) (unknown) (no (unknown) (unknown) Second Trimester (units (unknown) date) Education unknown) Checklist (unknown) (no (unknown) (unknown) She denies any (units ( unknown) date) contractions, unknown) bleeding, leakage of fluid per vagina, or change in (unknown) (no (unknown) (unknown) She had an ED (units ( unknown) date) visit at [facility] unknown) General for supine hypotensive syndrome and has (unknown) (no (unknown) (unknown) Signed By: (units (unk nown) date) unknown) (unknown) (no (unknown) (unknown) Sister Mental (units ( unknown) date) health problem unknown) (unknown) (no (unknown) (unknown) Smoking Status: (units (unknown) date) Former smoker unknown) (unknown) (no (unknown) (unknown) Social History (units (unknown) date) unknown) (unknown) (no (unknown) (unknown) Surgical History (units (unknown) date) (Reviewed unknown) 02/07/22 @ 16:35 by Eagle Duong RN) (unknown) (no (unknown) (unknown) Surrogate (units (unkn own) date) ?: no unknown) (unknown) (no (unknown) (unknown) Symptoms since (units (unknown) date) LMP: Reports unknown) amenorrhea, nausea, fatigue, breast tenderness, (unknown) (no (unknown) (unknown) TR Yes no 123 37 (units (unknown) date) Vertex absent 1wk unknown) (unknown) (no (unknown) (unknown) TR Yes no 142 41 (units (unknown) date) Vertex absent unknown) /-2 AGA (unknown) (no (unknown) (unknown) Tdap status: (units (u nknown) date) immunized unknown) (unknown) (no (unknown) (unknown) Teratogen (units (unkn own) date) Exposures since unknown) LMP/Conception: Denies prescription medications, (unknown) (no (unknown) (unknown) Testing (units (unkno wn) date) Education unknown) (unknown) (no (unknown) (unknown) Testing (units (unkno wn) date) education unknown) completed: Genetic testing, group B strep, Spina bifida (unknown) (no (unknown) (unknown) This note may (units ( unknown) date) have been all or unknown) partially generated using voice recognition (unknown) (no (unknown) (unknown) Tobacco + (units (unkn own) date) Substance Use unknown) (unknown) (no (unknown) (unknown) Tobacco Status (units (unknown) date) unknown) (unknown) (no (unknown) (unknown) Type(s) of (units (unk nown) date) exercise: unknown) walking, regular exercise and yoga (unknown) (no (unknown) (unknown) UProtein Movement (units (unknown) date) PreLabor FHR Fndl unknown) Ht Pres Edema Cerv Exam US/Comment Next Appt (unknown) (no (unknown) (unknown) Varicella/chicke (units (unknown) date) n pox status: unknown) immunized (unknown) (no (unknown) (unknown) Visit Date: (units (un known) date) 10/01/21 Last unknown) Updated by: Myles Sullivan MD (unknown) (no (unknown) (unknown) Visit Date: (units (un known) date) 10/22/21 Last unknown) Updated by: Myles Sullivan MD (unknown) (no (unknown) (unknown) Visit Date: (units (un known) date) 11/19/21 Last unknown) Updated by: Myles Sullivan MD (unknown) (no (unknown) (unknown) Visit Date: (units (un known) date) 12/12/21 Last unknown) Updated by: Myles Sullivan MD (unknown) (no (unknown) (unknown) Visit Date: (units (un known) date) 01/15/22 Last unknown) Updated by: Myles Sullivan MD (unknown) (no (unknown) (unknown) Visit Date: (units (un known) date) 02/07/22 Last unknown) Updated by: Myles Sullivan MD (unknown) (no (unknown) (unknown) Visit Date: (units (un known) date) 03/05/22 Last unknown) Updated by: Myles Sullivan MD (unknown) (no (unknown) (unknown) Visit Date: (units (un known) date) 03/19/22 Last unknown) Updated by: Myles Sullivan MD (unknown) (no (unknown) (unknown) Visit Date: (units (un known) date) 04/01/22 Last unknown) Updated by: Myles Sullivan MD (unknown) (no (unknown) (unknown) Visit Date: (units (un known) date) 04/09/22 Last unknown) Updated by: Myles Sullivan MD (unknown) (no (unknown) (unknown) Visit Date: (units (un known) date) 04/17/22 Last unknown) Updated by: Radha Vivar MD (unknown) (no (unknown) (unknown) Visit Date: (units (un known) date) 04/23/22 Last unknown) Updated by: Radha Vivar MD (unknown) (no (unknown) (unknown) Visit Date: (units (un known) date) 04/28/22 Last unknown) Updated by: Anahi Tafoya P.A-C (unknown) (no (unknown) (unknown) Visit Date: (units (un known) date) 05/02/22 Last unknown) Updated by: Lavern James MD (unknown) (no (unknown) (unknown) Visit Reasons: (units (unknown) date) 6wk PP unknown) (unknown) (no (unknown) (unknown) Vitamins and (units (u nknown) date) iron, Diet and unknown) weight gain, Fish and mercury intake, Caffeine use, (unknown) (no (unknown) (unknown) WG (units (unkno wn) date) unknown) (unknown) (no (unknown) (unknown) Yes no 144 28 (units ( unknown) date) N/A 4 wks unknown) (unknown) (no (unknown) (unknown) Zika virus (units (unk nown) date) exposure: No unknown) (unknown) (no (unknown) (unknown) a component of (units (unknown) date) cervical pain as unknown) well. She has changed jobs and is finding it (unknown) (no (unknown) (unknown) absence between (units (unknown) date) 04/21/2022 and unknown) 05/06/2022. Also discussed was potential for (unknown) (no (unknown) (unknown) active wright (units (unknown) date) fetus. Follow-up unknown) will be in 4 weeks and AFP screening for (unknown) (no (unknown) (unknown) adding iron and (units (unknown) date) vitamin-C daily. unknown) Order placed for follow-up ultrasound to (unknown) (no (unknown) (unknown) age. She is (units (un known) date) doing well and unknown) there are no ongoing issues. She is having more in (unknown) (no (unknown) (unknown) alcohol intake: (units (unknown) date) former unknown) (unknown) (no (unknown) (unknown) anatomic survey (units (unknown) date) will be ordered. unknown) (unknown) (no (unknown) (unknown) and frequent (units (u nknown) date) bitemporal unknown) headaches for which she uses Tylenol, the patient is (unknown) (no (unknown) (unknown) anyone in either (units (unknown) date) family with: unknown) (unknown) (no (unknown) (unknown) as needed. (units (unk nown) date) unknown) (unknown) (no (unknown) (unknown) baby's father (units ( unknown) date) had a child with unknown) defects not listed above and Denies Other (unknown) (no (unknown) (unknown) been counseled (units (unknown) date) regarding unknown) preventive measures. Her baby remains very active but (unknown) (no (unknown) (unknown) beginning to (units (u nknown) date) return. She has unknown) not yet felt distinct movement but may have (unknown) (no (unknown) (unknown) but will be (units (un known) date) returning within unknown) the next few weeks. Aside from some mild nausea (unknown) (no (unknown) (unknown) caffeine: Yes (units ( unknown) date) (limit 200mg) unknown) (unknown) (no (unknown) (unknown) carbon monox (units (u nknown) date) detector in home: unknown) Yes (unknown) (no (unknown) (unknown) change in (units (unkn own) date) discharge but her unknown) baby is active. GBS obtained and submitted today. (unknown) (no (unknown) (unknown) complete 20 week (units (unknown) date) survey. unknown) Patient denies contractions, bleeding, leakage (unknown) (no (unknown) (unknown) continues to (units (u nknown) date) have headaches unknown) but unfortunately has not picked up her [place] (unknown) (no (unknown) (unknown) ctx's. On U/S: (units (unknown) date) Grade 3 placenta. unknown) AGA 39w2d. 8#13oz. 87%ile. KANDACE 17cm. (unknown) (no (unknown) (unknown) current (units (unkno wn) date) occupational unknown) exposures/hazards : No (unknown) (no (unknown) (unknown) daily servings (units (unknown) date) fruits/ve-4 unknown) (unknown) (no (unknown) (unknown) days. (units (un known) date) heart tones are unknown) positive with Doppler. She denies any bleeding, (unknown) (no (unknown) (unknown) declines flu (units (u nknown) date) shot today. No unknown) other concerns. F/u 1 wk or as needed. (unknown) (no (unknown) (unknown) denies (units (unkno wn) date) contractions, unknown) bleeding, leakage of fluid per vagina, or change in (unknown) (no (unknown) (unknown) described, visit (units (unknown) date) schedule unknown) reviewed, ultrasounds policy reviewed, coverage 24 (unknown) (no (unknown) (unknown) discharge. BHIP (units (unknown) date) counseling is unknown) ongoing and proving to be extremely helpful the (unknown) (no (unknown) (unknown) discharge. Labor (units (unknown) date) precautions unknown) reviewed and patient notified of my scheduled (unknown) (no (unknown) (unknown) discharge. PTL (units (unknown) date) precautions unknown) reviewed and follow-up will be in 4 weeks or as (unknown) (no (unknown) (unknown) disorders, (units (unk nown) date) Denies Cystic unknown) Fibrosis, Denies Mental Retardation/Autis m, Denies (unknown) (no (unknown) (unknown) do you feel safe (units (unknown) date) at home: Yes unknown) (unknown) (no (unknown) (unknown) doing extremely (units (unknown) date) well but is still unknown) awaiting referral from a for her (unknown) (no (unknown) (unknown) during the past (units (unknown) date) year weight has: unknown) remained stable (unknown) (no (unknown) (unknown) education level: (units (unknown) date) college unknown) (unknown) (no (unknown) (unknown) evidence of (units (un known) date) infection or unknown) problems from the incision. She did lose her mucus (unknown) (no (unknown) (unknown) exposure (units (unkno wn) date) discussed, CMV unknown) discussed, Toxoplasmosis precautions, Listeriosis (unknown) (no (unknown) (unknown) exposure, (units (unkn own) date) Medication use, unknown) ETOH use, Sauna/hot tub use, Dental care, Travel, (unknown) (no (unknown) (unknown) jie/rastafarian: (units (unknown) date) Mormonism unknown) (unknown) (no (unknown) (unknown) felt some (units (unkn own) date) fluttering. She unknown) denies contractions, cramping, increased pelvic (unknown) (no (unknown) (unknown) heart tones (units (unknown) date) and a follow-up unknown) ultrasound to confirm development may be (unknown) (no (unknown) (unknown) fire (units (unkno wn) date) extinguisher in unknown) home: Yes (unknown) (no (unknown) (unknown) firearms in (units (un known) date) home: Yes unknown) firearms unloaded and locked: Yes (unknown) (no (unknown) (unknown) follow-up scan (units (unknown) date) was recommended. unknown) Patient's headaches or improve with the (unknown) (no (unknown) (unknown) follow-up will (units (unknown) date) be in 4 weeks or unknown) as needed. (unknown) (no (unknown) (unknown) frequency: 3-4 (units (unknown) date) times per week unknown) (unknown) (no (unknown) (unknown) frequent but (units (u nknown) date) irregular unknown) cramping and mild contractions. She denies VB, LOF. She (unknown) (no (unknown) (unknown) frequently than (units (unknown) date) every 8 minutes. unknown) No leakage of fluid. No vaginal bleeding. (unknown) (no (unknown) (unknown) further episodes (units (unknown) date) of supine unknown) hypertension and is doing well. She denies bleeding, (unknown) (no (unknown) (unknown) gestational age. (units (unknown) date) 1 hour GDM screen unknown) was normal but she is anemic and will be (unknown) (no (unknown) (unknown) gestational age. (units (unknown) date) Her 20 week unknown) anatomy scan is scheduled for tomorrow. She (unknown) (no (unknown) (unknown) gestational age. (units (unknown) date) Her 20 week unknown) anatomy scan was unremarkable with an EFW at the (unknown) (no (unknown) (unknown) gestational age. (units (unknown) date) She continues to unknown) do extremely well and her baby is active. (unknown) (no (unknown) (unknown) gestational age. (units (unknown) date) She is doing unknown) better with less nausea and her energy levels are (unknown) (no (unknown) (unknown) gestational age. 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 (units (unknown) date) If there are any unknown) questions, please contact the Medical Records (unknown) (no (unknown) (unknown) hours a day and (units (unknown) date) participation of unknown) father in care and office visits (unknown) (no (unknown) (unknown) household (units (unkn own) date) members: unknown) significant other (unknown) (no (unknown) (unknown) housing: house (units (unknown) date) unknown) (unknown) (no (unknown) (unknown) impossible to (units ( unknown) date) work a full 8 unknown) hours due to episodes of lightheadedness, near (unknown) (no (unknown) (unknown) induction on (units (u nknown) date) 05/06/2022 if unknown) undelivered by that date. 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 (unknown) (no (unknown) (unknown) jw (units (unkno wn) date) unknown) (unknown) (no (unknown) (unknown) kag (units (unkno wn) date) unknown) (unknown) (no (unknown) (unknown) leakage of fluid (units (unknown) date) per vagina, or unknown) change in discharge but her baby remains active. (unknown) (no (unknown) (unknown) leakage of fluid (units (unknown) date) per vagina, or unknown) change in vaginal discharge but she is having (unknown) (no (unknown) (unknown) lives (units (unkno wn) date) independently: unknown) Yes (unknown) (no (unknown) (unknown) marital status: (units (unknown) date) unmarried,living unknown) together (October) (unknown) (no (unknown) (unknown) may occur. (units (unk nown) date) Occasional unknown) wrong-word or 'sound-alike' substitutions may have (unknown) (no (unknown) (unknown) needed. (units (unkno wn) date) unknown) (unknown) (no (unknown) (unknown) neural tube (units (un known) date) defects unknown) discussed. (unknown) (no (unknown) (unknown) nonstress test (units (unknown) date) on 04/20/2022 unknown) (unknown) (no (unknown) (unknown) occasional (units (unk nown) date) crampy pains in unknown) the pelvis. 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 Please (unknown) (no (unknown) (unknown) of fluid per (units (u nknown) date) vagina, or change unknown) in discharge. PTL precautions reviewed and (unknown) (no (unknown) (unknown) on initial 1st (units (unknown) date) trimester unknown) ultrasound. Follow-up will be in 3 weeks to listen for (unknown) (no (unknown) (unknown) ordered to be (units ( unknown) date) performed at unknown) around 14-16 weeks. (unknown) (no (unknown) (unknown) patient in (units (unk nown) date) dealing with her unknown) anxieties. Follow-up anatomy scan confirms marginal (unknown) (no (unknown) (unknown) pelvic pressure (units (unknown) date) and low back unknown) discomfort. Reviewed labor precautions. She (unknown) (no (unknown) (unknown) pets and (units (unkno wn) date) animals: Yes unknown) (Dog) (unknown) (no (unknown) (unknown) pill if she (units (un known) date) wishes. unknown) (unknown) (no (unknown) (unknown) plug but denies (units (unknown) date) any leakage of unknown) fluid. Good movement. No headaches, (unknown) (no (unknown) (unknown) precautions (units (un known) date) reviewed with the unknown) patient. Patient advised she can take a sleeping (unknown) (no (unknown) (unknown) precautions (units (un known) date) reviewed. GBS unknown) culture discussed. Follow-up will be in 2 weeks or (unknown) (no (unknown) (unknown) prescription (units (u nknown) date) that she will do unknown) so later today. Her headaches are bifrontal with (unknown) (no (unknown) (unknown) pressure, (units (unkn own) date) leakage of fluid unknown) per vagina, or change in discharge. Quad screen (unknown) (no (unknown) (unknown) prevention and (units (unknown) date) Rubella unknown) Immunization (unknown) (no (unknown) (unknown) read the note (units ( unknown) date) carefully and unknown) recognize, using context, where these substitutions (unknown) (no (unknown) (unknown) release of (units (unk nown) date) information and unknown) potential financial responsibility with this team. (unknown) (no (unknown) (unknown) reports good (units (u nknown) date) movement. unknown) She is very uncomfortable and reports a lot of (unknown) (no (unknown) (unknown) scan. (units (unkno wn) date) unknown) (unknown) (no (unknown) (unknown) scotomata, (units (unk nown) date) epigastric pain. unknown) Routine precautions reviewed with the patient. (unknown) (no (unknown) (unknown) seatbelt use: (units ( unknown) date) always unknown) (unknown) (no (unknown) (unknown) second hand (units (un known) date) exposure: No unknown) (unknown) (no (unknown) (unknown) seen. PTL (units (unkn own) date) precautions unknown) reviewed. Follow-up will be in 2 weeks or as needed. (unknown) (no (unknown) (unknown) she denies (units (unk nown) date) contractions, unknown) bleeding, leakage of fluid per vagina, or change in (unknown) (no (unknown) (unknown) significantly (units ( unknown) date) and the baby unknown) kicks kicking that area making it worse. There is no (unknown) (no (unknown) (unknown) software. (units (unkn own) date) Although every unknown) effort is made to edit content, direct support professional caregiver errors (unknown) (no (unknown) (unknown) special jie (units ( unknown) date) needs: No unknown) (unknown) (no (unknown) (unknown) substance use (units ( unknown) date) type: does not unknown) use (unknown) (no (unknown) (unknown) suspicious mole (units (unknown) date) on her umbilicus unknown) removed and she states that the area hurts (unknown) (no (unknown) (unknown) syncope, nausea (units (unknown) date) and severe unknown) fatigue at times. Light duty letter provided and (unknown) (no (unknown) (unknown) testing and Cell (units (unknown) date) Free DNA unknown) (unknown) (no (unknown) (unknown) testing will be (units (unknown) date) submitted today. unknown) labor precautions reviewed and follow (unknown) (no (unknown) (unknown) the way of (units (unk nown) date) contractions but unknown) denies bleeding, leakage of fluid per vagina, or (unknown) (no (unknown) (unknown) up will be in 4 (units (unknown) date) weeks by which unknown) time she should have had her 20 week anatomy (unknown) (no (unknown) (unknown) vagina, change (units (unknown) date) in discharge, or unknown) contractions but her baby is active. PTL (unknown) (no (unknown) (unknown) water heater (units (u nknown) date) temp set < 120 unknown) deg: Yes (will check) (unknown) (no (unknown) (unknown) week or as (units (unk nown) date) needed. unknown) (unknown) (no (unknown) (unknown) well-balanced (units ( unknown) date) diet: daily or unknown) most days (unknown) (no (unknown) (unknown) will be in 4 (units (un known) date) weeks and at that unknown) time a follow-up ultrasound for completion of the (unknown) (no (unknown) (unknown) will re-evaluate (units (unknown) date) in 4 weeks. She unknown) has started feeling good movement but (unknown) (no (unknown) (unknown) wk (units (unkno wn) date) unknown) (unknown) (no (unknown) (unknown) working smoke (units ( unknown) date) detector in home: unknown) Yes Result panel 7 (unknown) (no (unknown) (unknown) (no value) (units (unk nown) date) unknown) (unknown) (no (unknown) (unknown) (+10 lb) 118/72 N (units (unknown) date) unknown) (unknown) (no (unknown) (unknown) (+11 lb) 118/62 N (units (unknown) date) unknown) (unknown) (no (unknown) (unknown) (+17 lb) 116/72 N (units (unknown) date) unknown) (unknown) (no (unknown) (unknown) (+21 lb) 122/68 N (units (unknown) date) unknown) (unknown) (no (unknown) (unknown) (+27 lb 4 oz) (units ( unknown) date) 128/68 unknown) (unknown) (no (unknown) (unknown) (+35 lb 2 oz) (units ( unknown) date) 106/60 N unknown) (unknown) (no (unknown) (unknown) (+39 lb) 118/60 N (units (unknown) date) unknown) (unknown) (no (unknown) (unknown) (+44 lb) 130/66 (units (unknown) date) TR unknown) (unknown) (no (unknown) (unknown) (+46 lb) 118/76 N (units (unknown) date) unknown) (unknown) (no (unknown) (unknown) (+47 lb) 128/76 N (units (unknown) date) unknown) (unknown) (no (unknown) (unknown) (+51 lb) 128/84 N (units (unknown) date) unknown) (unknown) (no (unknown) (unknown) (+53 lb) 134/68 1 (units (unknown) date) unknown) (unknown) (no (unknown) (unknown) (+55 lb) 144/62 N (units (unknown) date) unknown) (unknown) (no (unknown) (unknown) (+8 lb) 114/78 N (units (unknown) date) unknown) (unknown) (no (unknown) (unknown) Genetic (units (unkn own) date) Screening/Teratolo unknown) gy Counseling - Includes patient, baby's father, or (unknown) (no (unknown) (unknown) -?-?-?-?-?-?-?-?- (units (unknown) date) ?-?-?-? unknown) (unknown) (no (unknown) (unknown) 09/19/21 [History (units (unknown) date) Confirmed unknown) 06/17/22] (unknown) (no (unknown) (unknown) 10/01/21 (units (unkno wn) date) unknown) (unknown) (no (unknown) (unknown) 10/22/21 (units (unkno wn) date) unknown) (unknown) (no (unknown) (unknown) [id number] (units (unkno wn) date) unknown) (unknown) (no (unknown) (unknown) 11/19/21 (units (unkno wn) date) unknown) (unknown) (no (unknown) (unknown) 12/12/21 (units (unkno wn) date) unknown) (unknown) (no (unknown) (unknown) 01/15/22 (units (unkno wn) date) unknown) (unknown) (no (unknown) (unknown) 02/07/22 (units (unkno wn) date) unknown) (unknown) (no (unknown) (unknown) 03/05/22 (units (unkno wn) date) unknown) (unknown) (no (unknown) (unknown) 03/19/22 (units (unkno wn) date) unknown) (unknown) (no (unknown) (unknown) 04/01/22 (units (unkno wn) date) unknown) (unknown) (no (unknown) (unknown) 04/09/22 (units (unkno wn) date) unknown) (unknown) (no (unknown) (unknown) 09:42 (units (unkno wn) date) unknown) (unknown) (no (unknown) (unknown) 1 wk (units (unkno wn) date) unknown) (unknown) (no (unknown) (unknown) 04/17/22 (units (unkno wn) date) unknown) (unknown) (no (unknown) (unknown) 04/23/22 (units (unkno wn) date) unknown) (unknown) (no (unknown) (unknown) 04/28/22 (units (unkno wn) date) unknown) (unknown) (no (unknown) (unknown) 05/02/22 (units (unkno wn) date) unknown) (unknown) (no (unknown) (unknown) 06/17/22 (units (unkno wn) date) unknown) (unknown) (no (unknown) (unknown) 06/17/22] (units (unkn own) date) unknown) (unknown) (no (unknown) (unknown) 12w 4d 175 lb (units ( unknown) date) unknown) (unknown) (no (unknown) (unknown) 16w 4d 173 lb (units ( unknown) date) unknown) (unknown) (no (unknown) (unknown) 19w 6d 182 lb (units ( unknown) date) unknown) (unknown) (no (unknown) (unknown) 24w 5d 186 lb (units ( unknown) date) unknown) (unknown) (no (unknown) (unknown) 28w 0d 192 lb 4 (units (unknown) date) oz unknown) (unknown) (no (unknown) (unknown) 10/01/2021: BHIP (units (unknown) date) referral for unknown) anxiety (unknown) (no (unknown) (unknown) 31w 5d 200 lb 2 (units (unknown) date) oz unknown) (unknown) (no (unknown) (unknown) 33w 5d 204 lb (units ( unknown) date) unknown) (unknown) (no (unknown) (unknown) 35w 4d 209 lb (units ( unknown) date) unknown) (unknown) (no (unknown) (unknown) 36w 5d 211 lb (units ( unknown) date) unknown) (unknown) (no (unknown) (unknown) 37w 6d 212 lb (units ( unknown) date) unknown) (unknown) (no (unknown) (unknown) 38w 5d 218 lb (units ( unknown) date) unknown) (unknown) (no (unknown) (unknown) 39w 3d 216 lb (units ( unknown) date) unknown) (unknown) (no (unknown) (unknown) 39w2d (units (unkno wn) date) unknown) (unknown) (no (unknown) (unknown) 40w 0d 220 lb (units ( unknown) date) unknown) (unknown) (no (unknown) (unknown) 6wk PP visit (units (u nknown) date) unknown) (unknown) (no (unknown) (unknown) 88th percentile (units (unknown) date) but they were unknown) unable to see portions of the anatomy therefore a (unknown) (no (unknown) (unknown) 9w 4d 176 lb (units (u nknown) date) unknown) (unknown) (no (unknown) (unknown) Abnormal lab (units (u nknown) date) values 1st unknown) trimester: discussed (unknown) (no (unknown) (unknown) Abnormal lab (units (u nknown) date) values 2nd unknown) trimester: discussed (unknown) (no (unknown) (unknown) Add'l Plan (units (unk nown) date) Details unknown) (unknown) (no (unknown) (unknown) Age/Sex: 22 / F (units (unknown) date) Date of Service: unknown) (unknown) (no (unknown) (unknown) Allergies (units (unkn own) date) unknown) (unknown) (no (unknown) (unknown) [place] (units ( unknown) date) [id number] unknown) (unknown) (no (unknown) (unknown) Aneuploidy (units (unk nown) date) Screening Offered: unknown) Accepted (If insurance covers) (unknown) (no (unknown) (unknown) Anticipate (units (unknown) date) [facility] unknown) Center (unknown) (no (unknown) (unknown) Anticipated (units (un known) date) course of unknown) care: discussed (unknown) (no (unknown) (unknown) Anxiety (units (unkno wn) date) unknown) (unknown) (no (unknown) (unknown) Assessment and (units (unknown) date) Plan unknown) (unknown) (no (unknown) (unknown) Asthma (units (unkno wn) date) unknown) (unknown) (no (unknown) (unknown) Attending Dr: (units ( unknown) date) Myles Sullivan MD unknown) (unknown) (no (unknown) (unknown) BMI 28.9 (units (unkno wn) date) unknown) (unknown) (no (unknown) (unknown) BP 102/64 (units (unkn own) date) unknown) (unknown) (no (unknown) (unknown) Behavioral Health (units (unknown) date) integration unknown) program was reviewed with this patient, including (unknown) (no (unknown) (unknown) (units (unkno wn) date) Plan/Preferences unknown) (unknown) (no (unknown) (unknown) Planning (units (unknown) date) unknown) (unknown) (no (unknown) (unknown) Blood Pressure (units (unknown) date) Location Lt unknown) brachial (unknown) (no (unknown) (unknown) Childbirth (units (unk nown) date) Classes: discussed unknown) (unknown) (no (unknown) (unknown) Current Estimate (units (unknown) date) 05/02/22 unknown) Ultrasound #1 46w 4d (unknown) (no (unknown) (unknown) Current (units (unknown) date) History unknown) (unknown) (no (unknown) (unknown) : 2000 (units (unknown) date) Acct:[id number] unknown) (unknown) (no (unknown) (unknown) Date of positive (units (unknown) date) home unknown) test: 08/23/21 (unknown) (no (unknown) (unknown) Date (units (unkno wn) date) unknown) (unknown) (no (unknown) (unknown) Delivery Date: (units (unknown) date) 05/04/22 unknown) (unknown) (no (unknown) (unknown) Denies Congenital (units (unknown) date) Heart Defect, unknown) Denies Down Syndrome, Denies Muscular Dystrophy, (unknown) (no (unknown) (unknown) Denies Maternal (units (unknown) date) Metabolic Disorder unknown) (EG,TYPE 1 Diabetes, PKU), Denies Patient or (unknown) (no (unknown) (unknown) Denies Neural (units ( unknown) date) Tube Defect unknown) (Meningomyelocele, Spina Bifida, or Anencephaly), (unknown) (no (unknown) (unknown) Denies Sickle (units ( unknown) date) Cell Disease or unknown) Trait (), Denies Hemophilia or other blood (unknown) (no (unknown) (unknown) Denies Randell-Sachs (units (unknown) date) (Ashkenazi Yazidism, unknown) [place], [place]), Denies Agnes (unknown) (no (unknown) (unknown) Denies other (units (u nknown) date) unknown) (unknown) (no (unknown) (unknown) Denies over the (units (unknown) date) counter unknown) medications, Denies alcohol, Denies illicit drugs and (unknown) (no (unknown) (unknown) Depression: (units (un known) date) discussed unknown) (unknown) (no (unknown) (unknown) Dept at (units (unkno wn) date) . unknown) (unknown) (no (unknown) (unknown) Diet and Exercise (units (unknown) date) unknown) (unknown) (no (unknown) (unknown) Discussed when to (units (unknown) date) call if labor unknown) ensues. 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), (unknown) (no (unknown) (unknown) Documented By: (units (unknown) date) Myles Sullivan MD unknown) 06/17/22 0933 (unknown) (no (unknown) (unknown) Double Electric (units (unknown) date) Breast Pump #1 ea unknown) 05/06/22 [Rx Confirmed 06/17/22] (unknown) (no (unknown) (unknown) Draft (units (unkno wn) date) unknown) (unknown) (no (unknown) (unknown) Dysmenorrhea (units (u nknown) date) unknown) (unknown) (no (unknown) (unknown) MARION Calculator (units (unknown) date) unknown) (unknown) (no (unknown) (unknown) EGA Weight BP (units ( unknown) date) UGlucose unknown) (unknown) (no (unknown) (unknown) Eating disorder (units (unknown) date) unknown) (unknown) (no (unknown) (unknown) Estimated (units (unkn own) date) Delivery Date unknown) Method Current (unknown) (no (unknown) (unknown) Exercise and (units (u nknown) date) activity, unknown) work/environmental /hazards, Sexual activity, X-ray (unknown) (no (unknown) (unknown) Expected Delivery (units (unknown) date) Route/Plan unknown) (unknown) (no (unknown) (unknown) Family History (units (unknown) date) (Reviewed 02/07/22 unknown) @ 16:35 by Eagle Duong RN) (unknown) (no (unknown) (unknown) Father (units (unkno wn) date) Hypertension unknown) (unknown) (no (unknown) (unknown) Father of Baby: (units (unknown) date) Shepard unknown) (unknown) (no (unknown) (unknown) Feeding: bottle (units (unknown) date) unknown) (unknown) (no (unknown) (unknown) [facility] unknown) (unknown) (no (unknown) (unknown) [place] and (units (u nknown) date) reduction of her unknown) work hours. She denies contractions, bleeding, (unknown) (no (unknown) (unknown) First Trimester (units (unknown) date) Education unknown) Checklist (unknown) (no (unknown) (unknown) (units (unkno wn) date) unknown) (unknown) (no (unknown) (unknown) Genetic Screening (units (unknown) date) + Counseling unknown) (unknown) (no (unknown) (unknown) Genetic Screening (units (unknown) date) unknown) (unknown) (no (unknown) (unknown) Good (units (unk nown) date) movement now. No unknown) headaches, scotomata, epigastric pain. Routine (unknown) (no (unknown) (unknown) Grandmother (units (un known) date) Breast cancer unknown) (unknown) (no (unknown) (unknown) 1 (units (unkn own) date) Multiple births unknown) (unknown) (no (unknown) (unknown) : 1 (units (unk nown) date) unknown) (unknown) (no (unknown) (unknown) H/O laparoscopy (units (unknown) date) unknown) (unknown) (no (unknown) (unknown) HIV risk (units (unkno wn) date) evaluation: low unknown) risk (unknown) (no (unknown) (unknown) Health Center (units ( unknown) date) Education unknown) (unknown) (no (unknown) (unknown) Health center (units ( unknown) date) information: unknown) nature of practice discussed, personnel (unknown) (no (unknown) (unknown) Height 5 ft 9 in (units (unknown) date) unknown) (unknown) (no (unknown) (unknown) Hepatitis C risk (units (unknown) date) evaluation: low unknown) risk (unknown) (no (unknown) (unknown) History of (units (unk nown) date) Hepatitis B: No unknown) (unknown) (no (unknown) (unknown) History of (units (unk nown) date) Hepatitis C: No unknown) (unknown) (no (unknown) (unknown) History of (units (unk nown) date) mandibular surgery unknown) (unknown) (no (unknown) (unknown) History/Interim (units (unknown) date) Details unknown) (unknown) (no (unknown) (unknown) Hospital: (units (u nknown) date) unknown) (unknown) (no (unknown) (unknown) [facility] (units (u nknown) date) [place], Denies unknown) Other inherited genetic or chromosomal disorder, (unknown) (no (unknown) (unknown) Hx # (units (u nknown) date) Pregnancies unknown) Elective abortions (unknown) (no (unknown) (unknown) Hx # Term (units (unkn own) date) Pregnancies unknown) Ectopic pregnancies (unknown) (no (unknown) (unknown) (units (u nknown) date) Weight: 8# 11oz unknown) (unknown) (no (unknown) (unknown) Longest (units (unknown) date) Sleep: 3hr unknown) (unknown) (no (unknown) (unknown) Recent (units ( unknown) date) Weight: 12# unknown) (unknown) (no (unknown) (unknown) will be (units (unknown) date) adopted?: no unknown) (unknown) (no (unknown) (unknown) 's Name: (units (unknown) date) Lopez unknown) (unknown) (no (unknown) (unknown) 's Sex: (units ( unknown) date) Male unknown) (unknown) (no (unknown) (unknown) Infection History (units (unknown) date) unknown) (unknown) (no (unknown) (unknown) Infectious (units (unk nown) date) Disease Education unknown) (unknown) (no (unknown) (unknown) Infectious (units (unk nown) date) disease exposure: unknown) chicken pox immunity discussed, tuberculosis (unknown) (no (unknown) (unknown) Initial Weight: (units (unknown) date) 165 lb unknown) (unknown) (no (unknown) (unknown) Initials (units (unkno wn) date) unknown) (unknown) (no (unknown) (unknown) Intake Clinical (units (unknown) date) Staff unknown) (unknown) (no (unknown) (unknown) Intake Note: (units (u nknown) date) unknown) (unknown) (no (unknown) (unknown) Intake performed (units (unknown) date) by: Kevin Us unknown) (unknown) (no (unknown) (unknown) Intake (units (unkno wn) date) unknown) (unknown) (no (unknown) (unknown) LM (units (unkno wn) date) unknown) (unknown) (no (unknown) (unknown) Labor precautions (units (unknown) date) reviewed and unknown) follow-up will be in 1 week or as needed. (unknown) (no (unknown) (unknown) Live with someone (units (unknown) date) with TB or exposed unknown) to TB: No (unknown) (no (unknown) (unknown) Loc: [facility] (units (unkno wn) date) unknown) (unknown) (no (unknown) (unknown) Marital status: (units (unknown) date) unmarried,living unknown) together (October) (unknown) (no (unknown) (unknown) Medical History (units (unknown) date) (Reviewed 02/07/22 unknown) @ 16:35 by Eagle Duong RN) (unknown) (no (unknown) (unknown) Medications (units (un known) date) unknown) (unknown) (no (unknown) (unknown) Mother Mental (units ( unknown) date) health problem unknown) (unknown) (no (unknown) (unknown) N No no 156 16 (units (unknown) date) N/A 4 wks. unknown) (unknown) (no (unknown) (unknown) N No no 162 12 (units (unknown) date) N/A 4 wks unknown) (unknown) (no (unknown) (unknown) N No no 3 wks (units ( unknown) date) unknown) (unknown) (no (unknown) (unknown) N Yes 128 37 (units (u nknown) date) Vertex absent unknown) /-2 1wk (unknown) (no (unknown) (unknown) N Yes no 146 37 (units (unknown) date) Vertex GBS unknown) NEGATIVE 1 (unknown) (no (unknown) (unknown) N Yes no 148 25 (units (unknown) date) N/A 4 wks unknown) (unknown) (no (unknown) (unknown) N Yes no 148 32 (units (unknown) date) Uncertain 2 wks unknown) (unknown) (no (unknown) (unknown) N Yes no 150 36 (units (unknown) date) Vertex 1 wk unknown) (unknown) (no (unknown) (unknown) N Yes no 152 34 (units (unknown) date) Vertex 2 wks unknown) (unknown) (no (unknown) (unknown) N Yes no 154 20 (units (unknown) date) N/A 4 wks unknown) (unknown) (no (unknown) (unknown) N Yes yes 132 39 (units (unknown) date) Vertex absent unknown) 2 (unknown) (no (unknown) (unknown) NF (units (unkno wn) date) unknown) (unknown) (no (unknown) (unknown) No Known Drug (units ( unknown) date) Allergies Allergy unknown) (Unverified 06/17/22 09:42) (unknown) (no (unknown) (unknown) Notes (units (unkno wn) date) unknown) (unknown) (no (unknown) (unknown) Number of Living (units (unknown) date) Children unknown) (unknown) (no (unknown) (unknown) Number of Weeks (units (unknown) date) Post : 6 unknown) (unknown) (no (unknown) (unknown) Number of (units (unkn own) date) fetuses:: Single unknown) (unknown) (no (unknown) (unknown) Nutrition and (units ( unknown) date) weight gain unknown) counseling: special diet: discussed (unknown) (no (unknown) (unknown) OB Office Visit (units (unknown) date) unknown) (unknown) (no (unknown) (unknown) OB Visit Log (units (u nknown) date) unknown) (unknown) (no (unknown) (unknown) On control (units (unknown) date) at conception?: No unknown) (unknown) (no (unknown) (unknown) Other Estimates (units (unknown) date) 04/11/22 LMP unknown) (Uncertain) 49w 4d (unknown) (no (unknown) (unknown) PFSH (units (unkno wn) date) unknown) (unknown) (no (unknown) (unknown) PTL precautions (units (unknown) date) reviewed. Orders unknown) placed for 1 hour GDM screen CBC. Follow-up (unknown) (no (unknown) (unknown) PVCs (premature (units (unknown) date) ventricular unknown) contractions) (unknown) (no (unknown) (unknown) Para 0 (units (unkno wn) date) Spontaneous unknown) abortions (unknown) (no (unknown) (unknown) Para: 1 (units (unkno wn) date) unknown) (unknown) (no (unknown) (unknown) Partner history (units (unknown) date) of STD: denies hx unknown) (unknown) (no (unknown) (unknown) Partner history (units (unknown) date) of genital herpes: unknown) No (unknown) (no (unknown) (unknown) Partner: Shepard (units (unknown) date) Mario Alberto unknown) (unknown) (no (unknown) (unknown) Patient comes in (units (unknown) date) at 37 weeks 6 days unknown) for routine OB visit. She had a (unknown) (no (unknown) (unknown) Patient seen at (units (unknown) date) [facility] for unknown) decreased movement with reactive (unknown) (no (unknown) (unknown) Patient (units (unkno wn) date) verbalizes consent unknown) for this referral. MARION corrected to 05/02/2022 based (unknown) (no (unknown) (unknown) Patient very (units (u nknown) date) uncomfortable with unknown) contractions but they do not come more (unknown) (no (unknown) (unknown) Patient's age 33 (units (unknown) date) years or older as unknown) of estimated date of delivery: No (unknown) (no (unknown) (unknown) Patient: (units (unkno wn) date) Keshia Chance P unknown) MR#: [id number] (unknown) (no (unknown) (unknown) Pelvic pain in (units (unknown) date) female unknown) (unknown) (no (unknown) (unknown) Personal history (units (unknown) date) of STD: denies hx unknown) (unknown) (no (unknown) (unknown) Personal history (units (unknown) date) of genital herpes: unknown) No (unknown) (no (unknown) (unknown) Placenta previa (units (unknown) date) unknown) (unknown) (no (unknown) (unknown) Plan: NST. (units (unk nown) date) Induction. unknown) (unknown) (no (unknown) (unknown) Position Sitting (units (unknown) date) unknown) (unknown) (no (unknown) (unknown) Post (units (un known) date) unknown) (unknown) (no (unknown) (unknown) History (units (unknown) date) unknown) (unknown) (no (unknown) (unknown) type:: (units (unknown) date) First unknown) (unknown) (no (unknown) (unknown) (units (unkno wn) date) Education unknown) (unknown) (no (unknown) (unknown) Initial (units (unknown) date) Assessment unknown) (unknown) (no (unknown) (unknown) Specific (units (unknown) date) Issues/Plans unknown) (unknown) (no (unknown) (unknown) Testing: (units (unknown) date) discussed unknown) (unknown) (no (unknown) (unknown) Visit (units (unknown) date) unknown) (unknown) (no (unknown) (unknown) classes: (units (unknown) date) Yes unknown) (unknown) (no (unknown) (unknown) (units (unkno wn) date) education packet: unknown) Child education/plan, symptoms, (unknown) (no (unknown) (unknown) Primary Care (units (u nknown) date) Provider: JONO unknown) Rosa (unknown) (no (unknown) (unknown) Primary Ob (units (unk nown) date) Provider: unknown) Myles Sullivan (unknown) (no (unknown) (unknown) Providers (units (unkn own) date) unknown) (unknown) (no (unknown) (unknown) Pt presents for a (units (unknown) date) routine PNV at 40 unknown) wks gestation. Good FM. No LOF/VB or (unknown) (no (unknown) (unknown) Q4-6H PRN (units (unkn own) date) headache #30 caps unknown) 12/04/21 [Rx Confirmed 06/17/22] (unknown) (no (unknown) (unknown) Rash or viral (units ( unknown) date) illness since last unknown) menstrual period: No (unknown) (no (unknown) (unknown) Reason For Visit (units (unknown) date) unknown) (unknown) (no (unknown) (unknown) Recent travel (units ( unknown) date) outside of unknown) country?: No (unknown) (no (unknown) (unknown) Recurrent (units (unkn own) date) loss or unknown) a stillbirth: No (unknown) (no (unknown) (unknown) Safety (units (unkno wn) date) unknown) (unknown) (no (unknown) (unknown) Keshia and (units (u nknown) date) Shepard presents unknown) today for her MAX visit now at 12 weeks 4 (unknown) (no (unknown) (unknown) Keshia and (units (u nknown) date) Shepard return unknown) today for her MAX visit now 20 4+5 weeks (unknown) (no (unknown) (unknown) Keshia and (units (u nknown) date) Shepard return unknown) today for her MAX visit now at 19+ 6 weeks (unknown) (no (unknown) (unknown) Keshia and (units (u nknown) date) Shepard returns unknown) today for her MAX now at 28+ 0 weeks (unknown) (no (unknown) (unknown) Keshia and (units (u nknown) date) Shepard returns unknown) today for her MAX visit now at 36+ 5 weeks (unknown) (no (unknown) (unknown) Keshia presents (units (unknown) date) today for her unknown) initial OB visit now at 9 weeks 4 days (unknown) (no (unknown) (unknown) Keshia presents (units (unknown) date) today for routine unknown) OB visit at 39w3d. She reports (unknown) (no (unknown) (unknown) Keshia returns (units (unknown) date) for her MAX visit unknown) now at 33+5 weeks EGA. She is had no (unknown) (no (unknown) (unknown) Keshia returns (units (unknown) date) today for her MAX unknown) visit now 30 1+5 weeks gestational age. (unknown) (no (unknown) (unknown) Keshia returns (units (unknown) date) today for her MAX unknown) visit now at 16 weeks 4 days (unknown) (no (unknown) (unknown) Keshia returns (units (unknown) date) today for her MAX unknown) visit now at 35+ 4 weeks gestational (unknown) (no (unknown) (unknown) Seatbelt use and (units (unknown) date) Influenza vaccine unknown) (Had flu vaccine, 1st 2 Covid) (unknown) (no (unknown) (unknown) Second Trimester (units (unknown) date) Education unknown) Checklist (unknown) (no (unknown) (unknown) She denies any (units ( unknown) date) contractions, unknown) bleeding, leakage of fluid per vagina, or change in (unknown) (no (unknown) (unknown) She had an ED (units ( unknown) date) visit at [facility] unknown) General for supine hypotensive syndrome and has (unknown) (no (unknown) (unknown) Signed By: (units (unk nown) date) unknown) (unknown) (no (unknown) (unknown) Sister Mental (units ( unknown) date) health problem unknown) (unknown) (no (unknown) (unknown) Smoking Status: (units (unknown) date) Former smoker unknown) (unknown) (no (unknown) (unknown) Social History (units (unknown) date) unknown) (unknown) (no (unknown) (unknown) Surgical History (units (unknown) date) (Reviewed 02/07/22 unknown) @ 16:35 by Eagle Duong RN) (unknown) (no (unknown) (unknown) Surrogate (units (unkn own) date) ?: no unknown) (unknown) (no (unknown) (unknown) Symptoms since (units (unknown) date) LMP: Reports unknown) amenorrhea, nausea, fatigue, breast tenderness, (unknown) (no (unknown) (unknown) TR Yes no 123 37 (units (unknown) date) Vertex absent 1wk unknown) (unknown) (no (unknown) (unknown) TR Yes no 142 41 (units (unknown) date) Vertex absent unknown) /-2 AGA (unknown) (no (unknown) (unknown) Tdap status: (units (u nknown) date) immunized unknown) (unknown) (no (unknown) (unknown) Teratogen (units (unkn own) date) Exposures since unknown) LMP/Conception: Denies prescription medications, (unknown) (no (unknown) (unknown) Testing Education (units (unknown) date) unknown) (unknown) (no (unknown) (unknown) Testing education (units (unknown) date) completed: Genetic unknown) testing, group B strep, Spina bifida (unknown) (no (unknown) (unknown) This note may (units ( unknown) date) have been all or unknown) partially generated using voice recognition (unknown) (no (unknown) (unknown) Tobacco + (units (unkn own) date) Substance Use unknown) (unknown) (no (unknown) (unknown) Tobacco Status (units (unknown) date) unknown) (unknown) (no (unknown) (unknown) Type of Delivery: (units (unknown) date) unknown) (unknown) (no (unknown) (unknown) Type(s) of (units (unk nown) date) exercise: walking, unknown) regular exercise and yoga (unknown) (no (unknown) (unknown) UProtein Movement (units (unknown) date) PreLabor FHR Fndl unknown) Ht Pres Edema Cerv Exam US/Comment Next Appt (unknown) (no (unknown) (unknown) Varicella/chicken (units (unknown) date) pox status: unknown) immunized (unknown) (no (unknown) (unknown) Visit Date: (units (un known) date) 10/01/21 Last unknown) Updated by: Myles Sullivan MD (unknown) (no (unknown) (unknown) Visit Date: (units (un known) date) 10/22/21 Last unknown) Updated by: Myles Sullivan MD (unknown) (no (unknown) (unknown) Visit Date: (units (un known) date) 11/19/21 Last unknown) Updated by: Myles Sullivan MD (unknown) (no (unknown) (unknown) Visit Date: (units (un known) date) 12/12/21 Last unknown) Updated by: Myles Sullivan MD (unknown) (no (unknown) (unknown) Visit Date: (units (un known) date) 01/15/22 Last unknown) Updated by: Myles Sullivan MD (unknown) (no (unknown) (unknown) Visit Date: (units (un known) date) 02/07/22 Last unknown) Updated by: Myles Sullivan MD (unknown) (no (unknown) (unknown) Visit Date: (units (un known) date) 03/05/22 Last unknown) Updated by: Myles Sullivan MD (unknown) (no (unknown) (unknown) Visit Date: (units (un known) date) 03/19/22 Last unknown) Updated by: Myles Sullivan MD (unknown) (no (unknown) (unknown) Visit Date: (units (un known) date) 04/01/22 Last unknown) Updated by: Myles Sullivan MD (unknown) (no (unknown) (unknown) Visit Date: (units (un known) date) 04/09/22 Last unknown) Updated by: Myles Sullivan MD (unknown) (no (unknown) (unknown) Visit Date: (units (un known) date) 04/17/22 Last unknown) Updated by: Radha Vivar MD (unknown) (no (unknown) (unknown) Visit Date: (units (un known) date) 04/23/22 Last unknown) Updated by: Radha Vivar MD (unknown) (no (unknown) (unknown) Visit Date: (units (un known) date) 04/28/22 Last unknown) Updated by: Anahi Tafoya P.A-C (unknown) (no (unknown) (unknown) Visit Date: (units (un known) date) 05/02/22 Last unknown) Updated by: Lavern James MD (unknown) (no (unknown) (unknown) Visit Reasons: (units (unknown) date) 6wk PP unknown) (unknown) (no (unknown) (unknown) Vitals (units (unkno wn) date) unknown) (unknown) (no (unknown) (unknown) Vitamins and (units (u nknown) date) iron, Diet and unknown) weight gain, Fish and mercury intake, Caffeine use, (unknown) (no (unknown) (unknown) WG (units (unkno wn) date) unknown) (unknown) (no (unknown) (unknown) Weight 196 lb (units ( unknown) date) unknown) (unknown) (no (unknown) (unknown) Yes no 144 28 N/A (units (unknown) date) 4 wks unknown) (unknown) (no (unknown) (unknown) Zika virus (units (unk nown) date) exposure: No unknown) (unknown) (no (unknown) (unknown) [History (units (unkno wn) date) Confirmed unknown) 06/17/22] (unknown) (no (unknown) (unknown) a component of (units (unknown) date) cervical pain as unknown) well. She has changed jobs and is finding it (unknown) (no (unknown) (unknown) absence between (units (unknown) date) 04/21/2022 and unknown) 05/06/2022. Also discussed was potential for (unknown) (no (unknown) (unknown) active wright (units (unknown) date) fetus. Follow-up unknown) will be in 4 weeks and AFP screening for (unknown) (no (unknown) (unknown) adding iron and (units (unknown) date) vitamin-C daily. unknown) Order placed for follow-up ultrasound to (unknown) (no (unknown) (unknown) age. She is doing (units (unknown) date) well and there are unknown) no ongoing issues. She is having more in (unknown) (no (unknown) (unknown) alcohol intake: (units (unknown) date) former unknown) (unknown) (no (unknown) (unknown) anatomic survey (units (unknown) date) will be ordered. unknown) (unknown) (no (unknown) (unknown) and frequent (units (u nknown) date) bitemporal unknown) headaches for which she uses Tylenol, the patient is (unknown) (no (unknown) (unknown) anyone in either (units (unknown) date) family with: unknown) (unknown) (no (unknown) (unknown) as needed. (units (unk nown) date) unknown) (unknown) (no (unknown) (unknown) baby's father had (units (unknown) date) a child with unknown) defects not listed above and Denies Other (unknown) (no (unknown) (unknown) been counseled (units (unknown) date) regarding unknown) preventive measures. Her baby remains very active but (unknown) (no (unknown) (unknown) beginning to (units (u nknown) date) return. She has unknown) not yet felt distinct movement but may have (unknown) (no (unknown) (unknown) but will be (units (un known) date) returning within unknown) the next few weeks. Aside from some mild nausea (unknown) (no (unknown) (unknown) butalbital-acetami (units (unknown) date) nophen-caffeine 50 unknown) mg-300 mg-40 mg capsule (Fioricet) 2 cap PO (unknown) (no (unknown) (unknown) caffeine: Yes (units ( unknown) date) (limit 200mg) unknown) (unknown) (no (unknown) (unknown) carbon monox (units (u nknown) date) detector in home: unknown) Yes (unknown) (no (unknown) (unknown) change in (units (unkn own) date) discharge but her unknown) baby is active. GBS obtained and submitted today. (unknown) (no (unknown) (unknown) cholecalciferol (units (unknown) date) (vitamin D3) 125 unknown) mcg (5,000 unit) capsule 125 mcg PO DAILY (unknown) (no (unknown) (unknown) complete 20 week (units (unknown) date) survey. unknown) Patient denies contractions, bleeding, leakage (unknown) (no (unknown) (unknown) continues to have (units (unknown) date) headaches but unknown) unfortunately has not picked up her Fioricet (unknown) (no (unknown) (unknown) ctx's. On U/S: (units (unknown) date) Grade 3 placenta. unknown) AGA 39w2d. 8#13oz. 87%ile. KANDACE 17cm. (unknown) (no (unknown) (unknown) current (units (unkno wn) date) occupational unknown) exposures/hazards: No (unknown) (no (unknown) (unknown) daily servings (units (unknown) date) fruits/ve-4 unknown) (unknown) (no (unknown) (unknown) days. heart (units (unknown) date) tones are positive unknown) with Doppler. She denies any bleeding, (unknown) (no (unknown) (unknown) declines flu shot (units (unknown) date) today. No other unknown) concerns. F/u 1 wk or as needed. (unknown) (no (unknown) (unknown) denies (units (unkno wn) date) contractions, unknown) bleeding, leakage of fluid per vagina, or change in (unknown) (no (unknown) (unknown) described, visit (units (unknown) date) schedule reviewed, unknown) ultrasounds policy reviewed, coverage 24 (unknown) (no (unknown) (unknown) discharge. BHIP (units (unknown) date) counseling is unknown) ongoing and proving to be extremely helpful the (unknown) (no (unknown) (unknown) discharge. Labor (units (unknown) date) precautions unknown) reviewed and patient notified of my scheduled (unknown) (no (unknown) (unknown) discharge. PTL (units (unknown) date) precautions unknown) reviewed and follow-up will be in 4 weeks or as (unknown) (no (unknown) (unknown) disorders, Denies (units (unknown) date) Cystic Fibrosis, unknown) Denies Mental Retardation/Autism , Denies (unknown) (no (unknown) (unknown) do you feel safe (units (unknown) date) at home: Yes unknown) (unknown) (no (unknown) (unknown) doing extremely (units (unknown) date) well but is still unknown) awaiting referral from a for her (unknown) (no (unknown) (unknown) double electric (units (unknown) date) breast pump 1 ea unknown) topical .prn #1 ea 05/09/22 [Rx Confirmed (unknown) (no (unknown) (unknown) during the past (units (unknown) date) year weight has: unknown) remained stable (unknown) (no (unknown) (unknown) education level: (units (unknown) date) college unknown) (unknown) (no (unknown) (unknown) evidence of (units (un known) date) infection or unknown) problems from the incision. She did lose her mucus (unknown) (no (unknown) (unknown) exposure (units (unkno wn) date) discussed, CMV unknown) discussed, Toxoplasmosis precautions, Listeriosis (unknown) (no (unknown) (unknown) exposure, (units (unkn own) date) Medication use, unknown) ETOH use, Sauna/hot tub use, Dental care, Travel, (unknown) (no (unknown) (unknown) jie/rastafarian: (units (unknown) date) Mormonism unknown) (unknown) (no (unknown) (unknown) felt some (units (unkn own) date) fluttering. She unknown) denies contractions, cramping, increased pelvic (unknown) (no (unknown) (unknown) heart tones (units (unknown) date) and a follow-up unknown) ultrasound to confirm development may be (unknown) (no (unknown) (unknown) fire extinguisher (units (unknown) date) in home: Yes unknown) (unknown) (no (unknown) (unknown) firearms in home: (units (unknown) date) Yes firearms unknown) unloaded and locked: Yes (unknown) (no (unknown) (unknown) follow-up scan (units (unknown) date) was recommended. unknown) Patient's headaches or improve with the (unknown) (no (unknown) (unknown) follow-up will be (units (unknown) date) in 4 weeks or as unknown) needed. (unknown) (no (unknown) (unknown) frequency: 3-4 (units (unknown) date) times per week unknown) (unknown) (no (unknown) (unknown) frequent but (units (u nknown) date) irregular cramping unknown) and mild contractions. She denies VB, LOF. She (unknown) (no (unknown) (unknown) frequently than (units (unknown) date) every 8 minutes. unknown) No leakage of fluid. No vaginal bleeding. (unknown) (no (unknown) (unknown) further episodes (units (unknown) date) of supine unknown) hypertension and is doing well. She denies bleeding, (unknown) (no (unknown) (unknown) gestational age. (units (unknown) date) 1 hour GDM screen unknown) was normal but she is anemic and will be (unknown) (no (unknown) (unknown) gestational age. (units (unknown) date) Her 20 week unknown) anatomy scan is scheduled for tomorrow. She (unknown) (no (unknown) (unknown) gestational age. (units (unknown) date) Her 20 week unknown) anatomy scan was unremarkable with an EFW at the (unknown) (no (unknown) (unknown) gestational age. (units (unknown) date) She continues to unknown) do extremely well and her baby is active. (unknown) (no (unknown) (unknown) gestational age. (units (unknown) date) She is doing unknown) better with less nausea and her energy levels are (unknown) (no (unknown) (unknown) gestational age. 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 If (units (unknown) date) there are any unknown) questions, please contact the Medical Records (unknown) (no (unknown) (unknown) hours a day and (units (unknown) date) participation of unknown) father in care and office visits (unknown) (no (unknown) (unknown) household (units (unkn own) date) members: unknown) significant other (unknown) (no (unknown) (unknown) housing: house (units (unknown) date) unknown) (unknown) (no (unknown) (unknown) impossible to (units ( unknown) date) work a full 8 unknown) hours due to episodes of lightheadedness, near (unknown) (no (unknown) (unknown) induction on (units (u nknown) date) 05/06/2022 if unknown) undelivered by that date. 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 (unknown) (no (unknown) (unknown) jw (units (unkno wn) date) unknown) (unknown) (no (unknown) (unknown) kag (units (unkno wn) date) unknown) (unknown) (no (unknown) (unknown) leakage of fluid (units (unknown) date) per vagina, or unknown) change in discharge but her baby remains active. (unknown) (no (unknown) (unknown) leakage of fluid (units (unknown) date) per vagina, or unknown) change in vaginal discharge but she is having (unknown) (no (unknown) (unknown) lives (units (unkno wn) date) independently: Yes unknown) (unknown) (no (unknown) (unknown) marital status: (units (unknown) date) unmarried,living unknown) together (October) (unknown) (no (unknown) (unknown) may occur. (units (unk nown) date) Occasional unknown) wrong-word or 'sound-alike' substitutions may have (unknown) (no (unknown) (unknown) needed. (units (unkno wn) date) unknown) (unknown) (no (unknown) (unknown) neural tube (units (un known) date) defects discussed. unknown) (unknown) (no (unknown) (unknown) nonstress test on (units (unknown) date) 04/20/2022 unknown) (unknown) (no (unknown) (unknown) occasional crampy (units (unknown) date) pains in the unknown) pelvis. 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 Please (unknown) (no (unknown) (unknown) of fluid per (units (u nknown) date) vagina, or change unknown) in discharge. PTL precautions reviewed and (unknown) (no (unknown) (unknown) on initial 1st (units (unknown) date) trimester unknown) ultrasound. Follow-up will be in 3 weeks to listen for (unknown) (no (unknown) (unknown) ordered to be (units ( unknown) date) performed at unknown) around 14-16 weeks. (unknown) (no (unknown) (unknown) patient in (units (unk nown) date) dealing with her unknown) anxieties. Follow-up anatomy scan confirms marginal (unknown) (no (unknown) (unknown) pelvic pressure (units (unknown) date) and low back unknown) discomfort. Reviewed labor precautions. She (unknown) (no (unknown) (unknown) pets and animals: (units (unknown) date) Yes (Dog) unknown) (unknown) (no (unknown) (unknown) pill if she (units (un known) date) wishes. unknown) (unknown) (no (unknown) (unknown) plug but denies (units (unknown) date) any leakage of unknown) fluid. Good movement. No headaches, (unknown) (no (unknown) (unknown) precautions (units (un known) date) reviewed with the unknown) patient. Patient advised she can take a sleeping (unknown) (no (unknown) (unknown) precautions (units (un known) date) reviewed. GBS unknown) culture discussed. Follow-up will be in 2 weeks or (unknown) (no (unknown) (unknown) prenat.vits,lizbet,m (units (unknown) date) sr-ynmu-tesft 1 unknown) tab PO DAILY 09/19/21 [History Confirmed (unknown) (no (unknown) (unknown) prescription that (units (unknown) date) she will do so unknown) later today. Her headaches are bifrontal with (unknown) (no (unknown) (unknown) pressure, leakage (units (unknown) date) of fluid per unknown) vagina, or change in discharge. Quad screen (unknown) (no (unknown) (unknown) prevention and (units (unknown) date) Rubella unknown) Immunization (unknown) (no (unknown) (unknown) read the note (units ( unknown) date) carefully and unknown) recognize, using context, where these substitutions (unknown) (no (unknown) (unknown) release of (units (unk nown) date) information and unknown) potential financial responsibility with this team. (unknown) (no (unknown) (unknown) reports good (units (u nknown) date) movement. unknown) She is very uncomfortable and reports a lot of (unknown) (no (unknown) (unknown) scan. (units (unkno wn) date) unknown) (unknown) (no (unknown) (unknown) scotomata, (units (unk nown) date) epigastric pain. unknown) Routine precautions reviewed with the patient. (unknown) (no (unknown) (unknown) seatbelt use: (units ( unknown) date) always unknown) (unknown) (no (unknown) (unknown) second hand (units (un known) date) exposure: No unknown) (unknown) (no (unknown) (unknown) seen. PTL (units (unkn own) date) precautions unknown) reviewed. Follow-up will be in 2 weeks or as needed. (unknown) (no (unknown) (unknown) she denies (units (unk nown) date) contractions, unknown) bleeding, leakage of fluid per vagina, or change in (unknown) (no (unknown) (unknown) significantly and (units (unknown) date) the baby kicks unknown) kicking that area making it worse. There is no (unknown) (no (unknown) (unknown) software. (units (unkn own) date) Although every unknown) effort is made to edit content, direct support professional caregiver errors (unknown) (no (unknown) (unknown) special jie (units ( unknown) date) needs: No unknown) (unknown) (no (unknown) (unknown) substance use (units ( unknown) date) type: does not use unknown) (unknown) (no (unknown) (unknown) suspicious mole (units (unknown) date) on her umbilicus unknown) removed and she states that the area hurts (unknown) (no (unknown) (unknown) syncope, nausea (units (unknown) date) and severe fatigue unknown) at times. Light duty letter provided and (unknown) (no (unknown) (unknown) testing and Cell (units (unknown) date) Free DNA unknown) (unknown) (no (unknown) (unknown) testing will be (units (unknown) date) submitted today. unknown) labor precautions reviewed and follow (unknown) (no (unknown) (unknown) the way of (units (unk nown) date) contractions but unknown) denies bleeding, leakage of fluid per vagina, or (unknown) (no (unknown) (unknown) up will be in 4 (units (unknown) date) weeks by which unknown) time she should have had her 20 week anatomy (unknown) (no (unknown) (unknown) vagina, change in (units (unknown) date) discharge, or unknown) contractions but her baby is active. PTL (unknown) (no (unknown) (unknown) vitamin B complex (units (unknown) date) (B Complex-Vitamin unknown) B12 tablet) 1 tab PO DAILY 09/19/21 (unknown) (no (unknown) (unknown) water heater temp (units (unknown) date) set < 120 deg: Yes unknown) (will check) (unknown) (no (unknown) (unknown) week or as (units (unk nown) date) needed. unknown) (unknown) (no (unknown) (unknown) well-balanced (units ( unknown) date) diet: daily or unknown) most days (unknown) (no (unknown) (unknown) will be in 4 weeks (units (unknown) date) and at that time a unknown) follow-up ultrasound for completion of the (unknown) (no (unknown) (unknown) will re-evaluate (units (unknown) date) in 4 weeks. She unknown) has started feeling good movement but (unknown) (no (unknown) (unknown) wk (units (unkno wn) date) unknown) (unknown) (no (unknown) (unknown) working smoke (units ( unknown) date) detector in home: unknown) Yes Result panel 8 (unknown) (no (unknown) (unknown) (no value) (units (unk nown) date) unknown) (unknown) (no (unknown) (unknown) (+10 lb) 118/72 N (units (unknown) date) unknown) (unknown) (no (unknown) (unknown) (+11 lb) 118/62 N (units (unknown) date) unknown) (unknown) (no (unknown) (unknown) (+17 lb) 116/72 N (units (unknown) date) unknown) (unknown) (no (unknown) (unknown) (+21 lb) 122/68 N (units (unknown) date) unknown) (unknown) (no (unknown) (unknown) (+27 lb 4 oz) (units ( unknown) date) 128/68 unknown) (unknown) (no (unknown) (unknown) (+35 lb 2 oz) (units ( unknown) date) 106/60 N unknown) (unknown) (no (unknown) (unknown) (+39 lb) 118/60 N (units (unknown) date) unknown) (unknown) (no (unknown) (unknown) (+44 lb) 130/66 (units (unknown) date) TR unknown) (unknown) (no (unknown) (unknown) (+46 lb) 118/76 N (units (unknown) date) unknown) (unknown) (no (unknown) (unknown) (+47 lb) 128/76 N (units (unknown) date) unknown) (unknown) (no (unknown) (unknown) (+51 lb) 128/84 N (units (unknown) date) unknown) (unknown) (no (unknown) (unknown) (+53 lb) 134/68 1 (units (unknown) date) unknown) (unknown) (no (unknown) (unknown) (+55 lb) 144/62 N (units (unknown) date) unknown) (unknown) (no (unknown) (unknown) (+8 lb) 114/78 N (units (unknown) date) unknown) (unknown) (no (unknown) (unknown) (1) (units (unknown) date) anxiety: unknown) (unknown) (no (unknown) (unknown) (2) Encounter for (units (unknown) date) care unknown) after hospital delivery: (unknown) (no (unknown) (unknown) Genetic (units (unkn own) date) Screening/Teratolo unknown) gy Counseling - Includes patient, baby's father, or (unknown) (no (unknown) (unknown) -?-?-?-?-?-?-?-?- (units (unknown) date) ?-?-?-? unknown) (unknown) (no (unknown) (unknown) 09/19/21 [History (units (unknown) date) Confirmed unknown) 06/17/22] (unknown) (no (unknown) (unknown) 10/01/21 (units (unkno wn) date) unknown) (unknown) (no (unknown) (unknown) 10/22/21 (units (unkno wn) date) unknown) (unknown) (no (unknown) (unknown) [id number] (units (unkno wn) date) unknown) (unknown) (no (unknown) (unknown) 11/19/21 (units (unkno wn) date) unknown) (unknown) (no (unknown) (unknown) 12/12/21 (units (unkno wn) date) unknown) (unknown) (no (unknown) (unknown) 01/15/22 (units (unkno wn) date) unknown) (unknown) (no (unknown) (unknown) 02/07/22 (units (unkno wn) date) unknown) (unknown) (no (unknown) (unknown) 03/05/22 (units (unkno wn) date) unknown) (unknown) (no (unknown) (unknown) 03/19/22 (units (unkno wn) date) unknown) (unknown) (no (unknown) (unknown) 04/01/22 (units (unkno wn) date) unknown) (unknown) (no (unknown) (unknown) 04/09/22 (units (unkno wn) date) unknown) (unknown) (no (unknown) (unknown) 09:42 (units (unkno wn) date) unknown) (unknown) (no (unknown) (unknown) 1 wk (units (unkno wn) date) unknown) (unknown) (no (unknown) (unknown) 04/17/22 (units (unkno wn) date) unknown) (unknown) (no (unknown) (unknown) 04/23/22 (units (unkno wn) date) unknown) (unknown) (no (unknown) (unknown) 04/28/22 (units (unkno wn) date) unknown) (unknown) (no (unknown) (unknown) 05/02/22 (units (unkno wn) date) unknown) (unknown) (no (unknown) (unknown) 06/17/22 1031 (units ( unknown) date) unknown) (unknown) (no (unknown) (unknown) 06/17/22 (units (unkno wn) date) unknown) (unknown) (no (unknown) (unknown) 06/17/22] (units (unkn own) date) unknown) (unknown) (no (unknown) (unknown) 12w 4d 175 lb (units ( unknown) date) unknown) (unknown) (no (unknown) (unknown) 16w 4d 173 lb (units ( unknown) date) unknown) (unknown) (no (unknown) (unknown) 19w 6d 182 lb (units ( unknown) date) unknown) (unknown) (no (unknown) (unknown) 24w 5d 186 lb (units ( unknown) date) unknown) (unknown) (no (unknown) (unknown) 28w 0d 192 lb 4 (units (unknown) date) oz unknown) (unknown) (no (unknown) (unknown) 10/01/2021: BHIP (units (unknown) date) referral for unknown) anxiety (unknown) (no (unknown) (unknown) 31w 5d 200 lb 2 (units (unknown) date) oz unknown) (unknown) (no (unknown) (unknown) 33w 5d 204 lb (units ( unknown) date) unknown) (unknown) (no (unknown) (unknown) 35w 4d 209 lb (units ( unknown) date) unknown) (unknown) (no (unknown) (unknown) 36w 5d 211 lb (units ( unknown) date) unknown) (unknown) (no (unknown) (unknown) 37w 6d 212 lb (units ( unknown) date) unknown) (unknown) (no (unknown) (unknown) 38w 5d 218 lb (units ( unknown) date) unknown) (unknown) (no (unknown) (unknown) 39w 3d 216 lb (units ( unknown) date) unknown) (unknown) (no (unknown) (unknown) 39w2d (units (unkno wn) date) unknown) (unknown) (no (unknown) (unknown) 40w 0d 220 lb (units ( unknown) date) unknown) (unknown) (no (unknown) (unknown) 6wk PP visit (units (u nknown) date) unknown) (unknown) (no (unknown) (unknown) 88th percentile (units (unknown) date) but they were unknown) unable to see portions of the anatomy therefore a (unknown) (no (unknown) (unknown) 9w 4d 176 lb (units (u nknown) date) unknown) (unknown) (no (unknown) (unknown) Abnormal lab (units (u nknown) date) values 1st unknown) trimester: discussed (unknown) (no (unknown) (unknown) Abnormal lab (units (u nknown) date) values 2nd unknown) trimester: discussed (unknown) (no (unknown) (unknown) Add'l Plan (units (unk nown) date) Details unknown) (unknown) (no (unknown) (unknown) Age/Sex: 22 / F (units (unknown) date) Date of Service: unknown) (unknown) (no (unknown) (unknown) Allergies (units (unkn own) date) unknown) (unknown) (no (unknown) (unknown) [place] (units ( unknown) date) [id number] unknown) (unknown) (no (unknown) (unknown) Aneuploidy (units (unk nown) date) Screening Offered: unknown) Accepted (If insurance covers) (unknown) (no (unknown) (unknown) Anticipate (units (unknown) date) [facility] unknown) Center (unknown) (no (unknown) (unknown) Anticipated (units (un known) date) course of unknown) care: discussed (unknown) (no (unknown) (unknown) Anxiety (units (unkno wn) date) unknown) (unknown) (no (unknown) (unknown) Assessment and (units (unknown) date) Plan unknown) (unknown) (no (unknown) (unknown) Asthma (units (unkno wn) date) unknown) (unknown) (no (unknown) (unknown) Attending Dr: (units ( unknown) date) Myles Sullivan MD unknown) (unknown) (no (unknown) (unknown) BMI 28.9 (units (unkno wn) date) unknown) (unknown) (no (unknown) (unknown) BP 102/64 (units (unkn own) date) unknown) (unknown) (no (unknown) (unknown) Behavioral Health (units (unknown) date) integration unknown) program was reviewed with this patient, including (unknown) (no (unknown) (unknown) (units (unkno wn) date) Plan/Preferences unknown) (unknown) (no (unknown) (unknown) Planning (units (unknown) date) unknown) (unknown) (no (unknown) (unknown) Blood Pressure (units (unknown) date) Location Lt unknown) brachial (unknown) (no (unknown) (unknown) Childbirth (units (unk nown) date) Classes: discussed unknown) (unknown) (no (unknown) (unknown) [place] area. (units (unknown) date) Patient will unknown) contact Jose and let us know if she requires (unknown) (no (unknown) (unknown) Current Estimate (units (unknown) date) 05/02/22 unknown) Ultrasound #1 46w 4d (unknown) (no (unknown) (unknown) Current (units (unknown) date) History unknown) (unknown) (no (unknown) (unknown) : 2000 (units (unknown) date) Acct:[id number] unknown) (unknown) (no (unknown) (unknown) Date of positive (units (unknown) date) home unknown) test: 08/23/21 (unknown) (no (unknown) (unknown) Date (units (unkno wn) date) unknown) (unknown) (no (unknown) (unknown) Delivery Date: (units (unknown) date) 05/04/22 unknown) (unknown) (no (unknown) (unknown) Denies Congenital (units (unknown) date) Heart Defect, unknown) Denies Down Syndrome, Denies Muscular Dystrophy, (unknown) (no (unknown) (unknown) Denies Maternal (units (unknown) date) Metabolic Disorder unknown) (EG,TYPE 1 Diabetes, PKU), Denies Patient or (unknown) (no (unknown) (unknown) Denies Neural (units ( unknown) date) Tube Defect unknown) (Meningomyelocele, Spina Bifida, or Anencephaly), (unknown) (no (unknown) (unknown) Denies Sickle (units ( unknown) date) Cell Disease or unknown) Trait (), Denies Hemophilia or other blood (unknown) (no (unknown) (unknown) Denies Randell-Sachs (units (unknown) date) (Ashkenazi Yazidism, unknown) [facility], [facility]), Denies Agnes (unknown) (no (unknown) (unknown) Denies other (units (u nknown) date) unknown) (unknown) (no (unknown) (unknown) Denies over the (units (unknown) date) counter unknown) medications, Denies alcohol, Denies illicit drugs and (unknown) (no (unknown) (unknown) Depression: (units (un known) date) discussed unknown) (unknown) (no (unknown) (unknown) Dept at (units (unkno wn) date) . unknown) (unknown) (no (unknown) (unknown) Diet and Exercise (units (unknown) date) unknown) (unknown) (no (unknown) (unknown) Discussed when to (units (unknown) date) call if labor unknown) ensues. 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), (unknown) (no (unknown) (unknown) Documented By: (units (unknown) date) Myles Sullivan MD unknown) 06/17/22 0933 (unknown) (no (unknown) (unknown) Double Electric (units (unknown) date) Breast Pump #1 ea unknown) 05/06/22 [Rx Confirmed 06/17/22] (unknown) (no (unknown) (unknown) Dysmenorrhea (units (u nknown) date) unknown) (unknown) (no (unknown) (unknown) MARINO Calculator (units (unknown) date) unknown) (unknown) (no (unknown) (unknown) EGA Weight BP (units ( unknown) date) UGlucose unknown) (unknown) (no (unknown) (unknown) Eating disorder (units (unknown) date) unknown) (unknown) (no (unknown) (unknown) [place] (units (unkn own) date) unknown) depression scale score is 16. Discussed options of (unknown) (no (unknown) (unknown) Estimated (units (unkn own) date) Delivery Date unknown) Method Current (unknown) (no (unknown) (unknown) Exercise and (units (u nknown) date) activity, unknown) work/environmental /hazards, Sexual activity, X-ray (unknown) (no (unknown) (unknown) Expected Delivery (units (unknown) date) Route/Plan unknown) (unknown) (no (unknown) (unknown) Family History (units (unknown) date) (Reviewed 02/07/22 unknown) @ 16:35 by Eagle Duong RN) (unknown) (no (unknown) (unknown) Father (units (unkno wn) date) Hypertension unknown) (unknown) (no (unknown) (unknown) Father of Baby: (units (unknown) date) Shepard unknown) (unknown) (no (unknown) (unknown) Feeding: bottle (units (unknown) date) unknown) (unknown) (no (unknown) (unknown) [facility]) (unknown) (no (unknown) (unknown) [place] and (units (u nknown) date) reduction of her unknown) work hours. She denies contractions, bleeding, (unknown) (no (unknown) (unknown) First Trimester (units (unknown) date) Education unknown) Checklist (unknown) (no (unknown) (unknown) (units (unkno wn) date) unknown) (unknown) (no (unknown) (unknown) Genetic Screening (units (unknown) date) + Counseling unknown) (unknown) (no (unknown) (unknown) Genetic Screening (units (unknown) date) unknown) (unknown) (no (unknown) (unknown) Good (units (unk nown) date) movement now. No unknown) headaches, scotomata, epigastric pain. Routine (unknown) (no (unknown) (unknown) Grandmother (units (un known) date) Breast cancer unknown) (unknown) (no (unknown) (unknown) 1 (units (unkn own) date) Multiple births unknown) (unknown) (no (unknown) (unknown) : 1 (units (unk nown) date) unknown) (unknown) (no (unknown) (unknown) H/O laparoscopy (units (unknown) date) unknown) (unknown) (no (unknown) (unknown) HIV risk (units (unkno wn) date) evaluation: low unknown) risk (unknown) (no (unknown) (unknown) Health Center (units ( unknown) date) Education unknown) (unknown) (no (unknown) (unknown) Health center (units ( unknown) date) information: unknown) nature of practice discussed, personnel (unknown) (no (unknown) (unknown) Height 5 ft 9 in (units (unknown) date) unknown) (unknown) (no (unknown) (unknown) Hepatitis C risk (units (unknown) date) evaluation: low unknown) risk (unknown) (no (unknown) (unknown) History of (units (unk nown) date) Hepatitis B: No unknown) (unknown) (no (unknown) (unknown) History of (units (unk nown) date) Hepatitis C: No unknown) (unknown) (no (unknown) (unknown) History of (units (unk nown) date) mandibular surgery unknown) (unknown) (no (unknown) (unknown) History/Interim (units (unknown) date) Details unknown) (unknown) (no (unknown) (unknown) [facility] (units (u nknown) date) unknown) (unknown) (no (unknown) (unknown) [facility] (units (u nknown) date) Chorea, Denies unknown) Other inherited genetic or chromosomal disorder, (unknown) (no (unknown) (unknown) Hx # (units (u nknown) date) Pregnancies unknown) Elective abortions (unknown) (no (unknown) (unknown) Hx # Term (units (unkn own) date) Pregnancies unknown) Ectopic pregnancies (unknown) (no (unknown) (unknown) (units (u nknown) date) Weight: 8# 11oz unknown) (unknown) (no (unknown) (unknown) Infant Longest (units (unknown) date) Sleep: 3hr unknown) (unknown) (no (unknown) (unknown) Infant Recent (units ( unknown) date) Weight: 12# unknown) (unknown) (no (unknown) (unknown) Infant will be (units (unknown) date) adopted?: no unknown) (unknown) (no (unknown) (unknown) 's Name: (units (unknown) date) John unknown) (unknown) (no (unknown) (unknown) 's Sex: (units ( unknown) date) Male unknown) (unknown) (no (unknown) (unknown) Infection History (units (unknown) date) unknown) (unknown) (no (unknown) (unknown) Infectious (units (unk nown) date) Disease Education unknown) (unknown) (no (unknown) (unknown) Infectious (units (unk nown) date) disease exposure: unknown) chicken pox immunity discussed, tuberculosis (unknown) (no (unknown) (unknown) Initial Weight: (units (unknown) date) 165 lb unknown) (unknown) (no (unknown) (unknown) Initials (units (unkno wn) date) unknown) (unknown) (no (unknown) (unknown) Intake Clinical (units (unknown) date) Staff unknown) (unknown) (no (unknown) (unknown) Intake Note: (units (u nknown) date) unknown) (unknown) (no (unknown) (unknown) Intake performed (units (unknown) date) by: Kevin Us unknown) (unknown) (no (unknown) (unknown) Intake (units (unkno wn) date) unknown) (unknown) (no (unknown) (unknown) LM (units (unkno wn) date) unknown) (unknown) (no (unknown) (unknown) Labor precautions (units (unknown) date) reviewed and unknown) follow-up will be in 1 week or as needed. (unknown) (no (unknown) (unknown) Live with someone (units (unknown) date) with TB or exposed unknown) to TB: No (unknown) (no (unknown) (unknown) Loc: [facility] (units (unkno wn) date) unknown) (unknown) (no (unknown) (unknown) Marital status: (units (unknown) date) unmarried,living unknown) together (October) (unknown) (no (unknown) (unknown) Medical History (units (unknown) date) (Reviewed 02/07/22 unknown) @ 16:35 by Eagle Duong RN) (unknown) (no (unknown) (unknown) Medications (units (un known) date) unknown) (unknown) (no (unknown) (unknown) Mother Mental (units ( unknown) date) health problem unknown) (unknown) (no (unknown) (unknown) N No no 156 16 (units (unknown) date) N/A 4 wks. unknown) (unknown) (no (unknown) (unknown) N No no 162 12 (units (unknown) date) N/A 4 wks unknown) (unknown) (no (unknown) (unknown) N No no 3 wks (units ( unknown) date) unknown) (unknown) (no (unknown) (unknown) N Yes 128 37 (units (u nknown) date) Vertex absent unknown) c/50/-2 1wk (unknown) (no (unknown) (unknown) N Yes no 146 37 (units (unknown) date) Vertex GBS unknown) NEGATIVE 1 (unknown) (no (unknown) (unknown) N Yes no 148 25 (units (unknown) date) N/A 4 wks unknown) (unknown) (no (unknown) (unknown) N Yes no 148 32 (units (unknown) date) Uncertain 2 wks unknown) (unknown) (no (unknown) (unknown) N Yes no 150 36 (units (unknown) date) Vertex 1 wk unknown) (unknown) (no (unknown) (unknown) N Yes no 152 34 (units (unknown) date) Vertex 2 wks unknown) (unknown) (no (unknown) (unknown) N Yes no 154 20 (units (unknown) date) N/A 4 wks unknown) (unknown) (no (unknown) (unknown) N Yes yes 132 39 (units (unknown) date) Vertex absent unknown) /-2 (unknown) (no (unknown) (unknown) NF (units (unkno wn) date) unknown) (unknown) (no (unknown) (unknown) No Known Drug (units ( unknown) date) Allergies Allergy unknown) (Unverified 06/17/22 09:42) (unknown) (no (unknown) (unknown) Notes (units (unkno wn) date) unknown) (unknown) (no (unknown) (unknown) Number of Living (units (unknown) date) Children unknown) (unknown) (no (unknown) (unknown) Number of Weeks (units (unknown) date) Post : 6 unknown) (unknown) (no (unknown) (unknown) Number of (units (unkn own) date) fetuses:: Single unknown) (unknown) (no (unknown) (unknown) Nutrition and (units ( unknown) date) weight gain unknown) counseling: special diet: discussed (unknown) (no (unknown) (unknown) OB Office Visit (units (unknown) date) unknown) (unknown) (no (unknown) (unknown) OB Visit Log (units (u nknown) date) unknown) (unknown) (no (unknown) (unknown) On control (units (unknown) date) at conception?: No unknown) (unknown) (no (unknown) (unknown) Other Estimates (units (unknown) date) 04/11/22 LMP unknown) (Uncertain) 49w 4d (unknown) (no (unknown) (unknown) PFSH (units (unkno wn) date) unknown) (unknown) (no (unknown) (unknown) PTL precautions (units (unknown) date) reviewed. Orders unknown) placed for 1 hour GDM screen CBC. Follow-up (unknown) (no (unknown) (unknown) PVCs (premature (units (unknown) date) ventricular unknown) contractions) (unknown) (no (unknown) (unknown) Para 1 (units (unkno wn) date) Spontaneous unknown) abortions (unknown) (no (unknown) (unknown) Para: 1 (units (unkno wn) date) unknown) (unknown) (no (unknown) (unknown) Partner history (units (unknown) date) of STD: denies hx unknown) (unknown) (no (unknown) (unknown) Partner history (units (unknown) date) of genital herpes: unknown) No (unknown) (no (unknown) (unknown) Partner: Devyn (units (unknown) date) Mario Alberto unknown) (unknown) (no (unknown) (unknown) Patient comes in (units (unknown) date) at 37 weeks 6 days unknown) for routine OB visit. She had a (unknown) (no (unknown) (unknown) Patient is (units (unk nown) date) undecided about unknown) contraception at this point but will contact the (unknown) (no (unknown) (unknown) Patient seen at (units (unknown) date) [facility] for unknown) decreased movement with reactive (unknown) (no (unknown) (unknown) Patient (units (unkno wn) date) verbalizes consent unknown) for this referral. MARION corrected to 05/02/2022 based (unknown) (no (unknown) (unknown) Patient very (units (u nknown) date) uncomfortable with unknown) contractions but they do not come more (unknown) (no (unknown) (unknown) Patient will (units (u nknown) date) initiate contact unknown) with psychologists in the [place] area and if (unknown) (no (unknown) (unknown) Patient's age 33 (units (unknown) date) years or older as unknown) of estimated date of delivery: No (unknown) (no (unknown) (unknown) Patient: (units (unkno wn) date) Keshia Chance P unknown) MR#: [id number] (unknown) (no (unknown) (unknown) Pelvic pain in (units (unknown) date) female unknown) (unknown) (no (unknown) (unknown) Personal history (units (unknown) date) of STD: denies hx unknown) (unknown) (no (unknown) (unknown) Personal history (units (unknown) date) of genital herpes: unknown) No (unknown) (no (unknown) (unknown) Placenta previa (units (unknown) date) unknown) (unknown) (no (unknown) (unknown) Plan (units (unkno wn) date) unknown) (unknown) (no (unknown) (unknown) Plan: NST. (units (unk nown) date) Induction. unknown) (unknown) (no (unknown) (unknown) Position Sitting (units (unknown) date) unknown) (unknown) (no (unknown) (unknown) Post (units (un known) date) unknown) (unknown) (no (unknown) (unknown) History (units (unknown) date) unknown) (unknown) (no (unknown) (unknown) type:: (units (unknown) date) First unknown) (unknown) (no (unknown) (unknown) (units (unkno wn) date) Education unknown) (unknown) (no (unknown) (unknown) Initial (units (unknown) date) Assessment unknown) (unknown) (no (unknown) (unknown) Specific (units (unknown) date) Issues/Plans unknown) (unknown) (no (unknown) (unknown) Testing: (units (unknown) date) discussed unknown) (unknown) (no (unknown) (unknown) Visit (units (unknown) date) unknown) (unknown) (no (unknown) (unknown) classes: (units (unknown) date) Yes unknown) (unknown) (no (unknown) (unknown) (units (unkno wn) date) education packet: unknown) Child education/plan, symptoms, (unknown) (no (unknown) (unknown) Primary Care (units (u nknown) date) Provider: JONO unknown) Rosa (unknown) (no (unknown) (unknown) Primary Ob (units (unk nown) date) Provider: unknown) Myles Sullivan (unknown) (no (unknown) (unknown) Problem-specific (units (unknown) date) ROS positives unknown) included with the HPI (unknown) (no (unknown) (unknown) Providers (units (unkn own) date) unknown) (unknown) (no (unknown) (unknown) Pt presents for a (units (unknown) date) routine PNV at 40 unknown) wks gestation. Good FM. No LOF/VB or (unknown) (no (unknown) (unknown) Q4-6H PRN (units (unkn own) date) headache #30 caps unknown) 12/04/21 [Rx Confirmed 06/17/22] (unknown) (no (unknown) (unknown) ROS (units (unkno wn) date) unknown) (unknown) (no (unknown) (unknown) Rash or viral (units ( unknown) date) illness since last unknown) menstrual period: No (unknown) (no (unknown) (unknown) Reason For Visit (units (unknown) date) unknown) (unknown) (no (unknown) (unknown) Recent travel (units ( unknown) date) outside of unknown) country?: No (unknown) (no (unknown) (unknown) Recurrent (units (unkn own) date) loss or unknown) a stillbirth: No (unknown) (no (unknown) (unknown) Safety (units (unkno wn) date) unknown) (unknown) (no (unknown) (unknown) Keshia and (units (u nknown) date) Shepard presents unknown) today for her MAX visit now at 12 weeks 4 (unknown) (no (unknown) (unknown) Keshia and (units (u nknown) date) Shepard return unknown) today for her MAX visit now 20 4+5 weeks (unknown) (no (unknown) (unknown) Keshia and (units (u nknown) date) Shepard return unknown) today for her MAX visit now at 19+ 6 weeks (unknown) (no (unknown) (unknown) Keshia and (units (u nknown) date) Shepard returns unknown) today for her MAX now at 28+ 0 weeks (unknown) (no (unknown) (unknown) Keshia and (units (u nknown) date) Shepard returns unknown) today for her MAX visit now at 36+ 5 weeks (unknown) (no (unknown) (unknown) Keshia presents (units (unknown) date) today for her unknown) initial OB visit now at 9 weeks 4 days (unknown) (no (unknown) (unknown) Keshia presents (units (unknown) date) today for routine unknown) OB visit at 39w3d. She reports (unknown) (no (unknown) (unknown) Keshia returns (units (unknown) date) for her MAX visit unknown) now at 33+5 weeks EGA. She is had no (unknown) (no (unknown) (unknown) Keshia returns (units (unknown) date) today for her MAX unknown) visit now 30 1+5 weeks gestational age. (unknown) (no (unknown) (unknown) Keshia returns (units (unknown) date) today for her MAX unknown) visit now at 16 weeks 4 days (unknown) (no (unknown) (unknown) Keshia returns (units (unknown) date) today for her MAX unknown) visit now at 35+ 4 weeks gestational (unknown) (no (unknown) (unknown) Keshia returns (units (unknown) date) today status post unknown) vaginal 05/04/2022. Both mother and (unknown) (no (unknown) (unknown) Seatbelt use and (units (unknown) date) Influenza vaccine unknown) (Had flu vaccine, 1st 2 Covid) (unknown) (no (unknown) (unknown) Second Trimester (units (unknown) date) Education unknown) Checklist (unknown) (no (unknown) (unknown) She denies any (units ( unknown) date) contractions, unknown) bleeding, leakage of fluid per vagina, or change in (unknown) (no (unknown) (unknown) She had an ED (units ( unknown) date) visit at [facility] unknown) General for supine hypotensive syndrome and has (unknown) (no (unknown) (unknown) Signed By: (units (unk nown) date) <Electronically unknown) signed by Myles Sullivan MD> (unknown) (no (unknown) (unknown) Signed (units (unkno wn) date) unknown) (unknown) (no (unknown) (unknown) Sister Mental (units ( unknown) date) health problem unknown) (unknown) (no (unknown) (unknown) Smoking Status: (units (unknown) date) Former smoker unknown) (unknown) (no (unknown) (unknown) Social History (units (unknown) date) unknown) (unknown) (no (unknown) (unknown) Status: Acute (units ( unknown) date) unknown) (unknown) (no (unknown) (unknown) Surgical History (units (unknown) date) (Reviewed 02/07/22 unknown) @ 16:35 by Eagle Duong RN) (unknown) (no (unknown) (unknown) Surrogate (units (unkn own) date) ?: no unknown) (unknown) (no (unknown) (unknown) Symptoms since (units (unknown) date) LMP: Reports unknown) amenorrhea, nausea, fatigue, breast tenderness, (unknown) (no (unknown) (unknown) TR Yes no 123 37 (units (unknown) date) Vertex absent 1wk unknown) (unknown) (no (unknown) (unknown) TR Yes no 142 41 (units (unknown) date) Vertex absent unknown) /-2 AGA (unknown) (no (unknown) (unknown) Tdap status: (units (u nknown) date) immunized unknown) (unknown) (no (unknown) (unknown) Teratogen (units (unkn own) date) Exposures since unknown) LMP/Conception: Denies prescription medications, (unknown) (no (unknown) (unknown) Testing Education (units (unknown) date) unknown) (unknown) (no (unknown) (unknown) Testing education (units (unknown) date) completed: Genetic unknown) testing, group B strep, Spina bifida (unknown) (no (unknown) (unknown) This note may (units ( unknown) date) have been all or unknown) partially generated using voice recognition (unknown) (no (unknown) (unknown) Tobacco + (units (unkn own) date) Substance Use unknown) (unknown) (no (unknown) (unknown) Tobacco Status (units (unknown) date) unknown) (unknown) (no (unknown) (unknown) Type of Delivery: (units (unknown) date) unknown) (unknown) (no (unknown) (unknown) Type(s) of (units (unk nown) date) exercise: walking, unknown) regular exercise and yoga (unknown) (no (unknown) (unknown) UProtein Movement (units (unknown) date) PreLabor FHR Fndl unknown) Ht Pres Edema Cerv Exam US/Comment Next Appt (unknown) (no (unknown) (unknown) Varicella/chicken (units (unknown) date) pox status: unknown) immunized (unknown) (no (unknown) (unknown) Visit Date: (units (un known) date) 10/01/21 Last unknown) Updated by: Myles Sullivan MD (unknown) (no (unknown) (unknown) Visit Date: (units (un known) date) 10/22/21 Last unknown) Updated by: Myles Sullivan MD (unknown) (no (unknown) (unknown) Visit Date: (units (un known) date) 11/19/21 Last unknown) Updated by: Myles Sullivan MD (unknown) (no (unknown) (unknown) Visit Date: (units (un known) date) 12/12/21 Last unknown) Updated by: Myles Sullivan MD (unknown) (no (unknown) (unknown) Visit Date: (units (un known) date) 01/15/22 Last unknown) Updated by: Myles Sullivan MD (unknown) (no (unknown) (unknown) Visit Date: (units (un known) date) 02/07/22 Last unknown) Updated by: Myles Sullivan MD (unknown) (no (unknown) (unknown) Visit Date: (units (un known) date) 03/05/22 Last unknown) Updated by: Myles Sullivan MD (unknown) (no (unknown) (unknown) Visit Date: (units (un known) date) 03/19/22 Last unknown) Updated by: Myles Sullivan MD (unknown) (no (unknown) (unknown) Visit Date: (units (un known) date) 04/01/22 Last unknown) Updated by: Myles Sullivan MD (unknown) (no (unknown) (unknown) Visit Date: (units (un known) date) 04/09/22 Last unknown) Updated by: Myles Sullivan MD (unknown) (no (unknown) (unknown) Visit Date: (units (un known) date) 04/17/22 Last unknown) Updated by: Radha Vivar MD (unknown) (no (unknown) (unknown) Visit Date: (units (un known) date) 04/23/22 Last unknown) Updated by: Radha Vivar MD (unknown) (no (unknown) (unknown) Visit Date: (units (un known) date) 04/28/22 Last unknown) Updated by: Anahi Tafoya P.A-C (unknown) (no (unknown) (unknown) Visit Date: (units (un known) date) 05/02/22 Last unknown) Updated by: Lavern James MD (unknown) (no (unknown) (unknown) Visit Reasons: (units (unknown) date) 6wk PP unknown) (unknown) (no (unknown) (unknown) Vitals (units (unkno wn) date) unknown) (unknown) (no (unknown) (unknown) Vitamins and (units (u nknown) date) iron, Diet and unknown) weight gain, Fish and mercury intake, Caffeine use, (unknown) (no (unknown) (unknown) WG (units (unkno wn) date) unknown) (unknown) (no (unknown) (unknown) Weight 196 lb (units ( unknown) date) unknown) (unknown) (no (unknown) (unknown) Yes no 144 28 N/A (units (unknown) date) 4 wks unknown) (unknown) (no (unknown) (unknown) Zika virus (units (unk nown) date) exposure: No unknown) (unknown) (no (unknown) (unknown) [History (units (unkno wn) date) Confirmed unknown) 06/17/22] (unknown) (no (unknown) (unknown) a component of (units (unknown) date) cervical pain as unknown) well. She has changed jobs and is finding it (unknown) (no (unknown) (unknown) absence between (units (unknown) date) 04/21/2022 and unknown) 05/06/2022. Also discussed was potential for (unknown) (no (unknown) (unknown) active wright (units (unknown) date) fetus. Follow-up unknown) will be in 4 weeks and AFP screening for (unknown) (no (unknown) (unknown) adding iron and (units (unknown) date) vitamin-C daily. unknown) Order placed for follow-up ultrasound to (unknown) (no (unknown) (unknown) age. She is doing (units (unknown) date) well and there are unknown) no ongoing issues. She is having more in (unknown) (no (unknown) (unknown) alcohol intake: (units (unknown) date) former unknown) (unknown) (no (unknown) (unknown) anatomic survey (units (unknown) date) will be ordered. unknown) (unknown) (no (unknown) (unknown) and frequent (units (u nknown) date) bitemporal unknown) headaches for which she uses Tylenol, the patient is (unknown) (no (unknown) (unknown) anyone in either (units (unknown) date) family with: unknown) (unknown) (no (unknown) (unknown) as needed. (units (unk nown) date) unknown) (unknown) (no (unknown) (unknown) ay occur. (units (unkn own) date) Occasional unknown) wrong-word or 'sound-alike' substitutions may have (unknown) (no (unknown) (unknown) baby have done (units (unknown) date) well since unknown) delivery and she is because her breast (unknown) (no (unknown) (unknown) baby's father had (units (unknown) date) a child with unknown) defects not listed above and Denies Other (unknown) (no (unknown) (unknown) been counseled (units (unknown) date) regarding unknown) preventive measures. Her baby remains very active but (unknown) (no (unknown) (unknown) beginning to (units (u nknown) date) return. She has unknown) not yet felt distinct movement but may have (unknown) (no (unknown) (unknown) but will be (units (un known) date) returning within unknown) the next few weeks. Aside from some mild nausea (unknown) (no (unknown) (unknown) butalbital-acetami (units (unknown) date) nophen-caffeine 50 unknown) mg-300 mg-40 mg capsule (Fioricet) 2 cap PO (unknown) (no (unknown) (unknown) caffeine: Yes (units ( unknown) date) (limit 200mg) unknown) (unknown) (no (unknown) (unknown) carbon monox (units (u nknown) date) detector in home: unknown) Yes (unknown) (no (unknown) (unknown) change in (units (unkn own) date) discharge but her unknown) baby is active. GBS obtained and submitted today. (unknown) (no (unknown) (unknown) cholecalciferol (units (unknown) date) (vitamin D3) 125 unknown) mcg (5,000 unit) capsule 125 mcg PO DAILY (unknown) (no (unknown) (unknown) complete 20 week (units (unknown) date) survey. unknown) Patient denies contractions, bleeding, leakage (unknown) (no (unknown) (unknown) continues to have (units (unknown) date) headaches but unknown) unfortunately has not picked up her Fioricet (unknown) (no (unknown) (unknown) counseling and (units (unknown) date) she was provided unknown) with the names of several psychologist in the (unknown) (no (unknown) (unknown) ctx's. On U/S: (units (unknown) date) Grade 3 placenta. unknown) AGA 39w2d. 8#13oz. 87%ile. KANDACE 17cm. (unknown) (no (unknown) (unknown) current (units (unkno wn) date) occupational unknown) exposures/hazards: No (unknown) (no (unknown) (unknown) daily servings (units (unknown) date) fruits/ve-4 unknown) (unknown) (no (unknown) (unknown) days. heart (units (unknown) date) tones are positive unknown) with Doppler. She denies any bleeding, (unknown) (no (unknown) (unknown) declines flu shot (units (unknown) date) today. No other unknown) concerns. F/u 1 wk or as needed. (unknown) (no (unknown) (unknown) denies (units (unkno wn) date) contractions, unknown) bleeding, leakage of fluid per vagina, or change in (unknown) (no (unknown) (unknown) described, visit (units (unknown) date) schedule reviewed, unknown) ultrasounds policy reviewed, coverage 24 (unknown) (no (unknown) (unknown) discharge. BHIP (units (unknown) date) counseling is unknown) ongoing and proving to be extremely helpful the (unknown) (no (unknown) (unknown) discharge. Labor (units (unknown) date) precautions unknown) reviewed and patient notified of my scheduled (unknown) (no (unknown) (unknown) discharge. PTL (units (unknown) date) precautions unknown) reviewed and follow-up will be in 4 weeks or as (unknown) (no (unknown) (unknown) disorders, Denies (units (unknown) date) Cystic Fibrosis, unknown) Denies Mental Retardation/Autism , Denies (unknown) (no (unknown) (unknown) do you feel safe (units (unknown) date) at home: Yes unknown) (unknown) (no (unknown) (unknown) doing extremely (units (unknown) date) well but is still unknown) awaiting referral from a for her (unknown) (no (unknown) (unknown) double electric (units (unknown) date) breast pump 1 ea unknown) topical .prn #1 ea 05/09/22 [Rx Confirmed (unknown) (no (unknown) (unknown) during the past (units (unknown) date) year weight has: unknown) remained stable (unknown) (no (unknown) (unknown) education level: (units (unknown) date) college unknown) (unknown) (no (unknown) (unknown) evidence of (units (un known) date) infection or unknown) problems from the incision. She did lose her mucus (unknown) (no (unknown) (unknown) exposure (units (unkno wn) date) discussed, CMV unknown) discussed, Toxoplasmosis precautions, Listeriosis (unknown) (no (unknown) (unknown) exposure, (units (unkn own) date) Medication use, unknown) ETOH use, Sauna/hot tub use, Dental care, Travel, (unknown) (no (unknown) (unknown) jie/rastafarian: (units (unknown) date) Mormonism unknown) (unknown) (no (unknown) (unknown) felt some (units (unkn own) date) fluttering. She unknown) denies contractions, cramping, increased pelvic (unknown) (no (unknown) (unknown) heart tones (units (unknown) date) and a follow-up unknown) ultrasound to confirm development may be (unknown) (no (unknown) (unknown) fire extinguisher (units (unknown) date) in home: Yes unknown) (unknown) (no (unknown) (unknown) firearms in home: (units (unknown) date) Yes firearms unknown) unloaded and locked: Yes (unknown) (no (unknown) (unknown) follow-up scan (units (unknown) date) was recommended. unknown) Patient's headaches or improve with the (unknown) (no (unknown) (unknown) follow-up will be (units (unknown) date) in 4 weeks or as unknown) needed. (unknown) (no (unknown) (unknown) frequency: 3-4 (units (unknown) date) times per week unknown) (unknown) (no (unknown) (unknown) frequent but (units (u nknown) date) irregular cramping unknown) and mild contractions. She denies VB, LOF. She (unknown) (no (unknown) (unknown) frequently than (units (unknown) date) every 8 minutes. unknown) No leakage of fluid. No vaginal bleeding. (unknown) (no (unknown) (unknown) further episodes (units (unknown) date) of supine unknown) hypertension and is doing well. She denies bleeding, (unknown) (no (unknown) (unknown) gestational age. (units (unknown) date) 1 hour GDM screen unknown) was normal but she is anemic and will be (unknown) (no (unknown) (unknown) gestational age. (units (unknown) date) Her 20 week unknown) anatomy scan is scheduled for tomorrow. She (unknown) (no (unknown) (unknown) gestational age. (units (unknown) date) Her 20 week unknown) anatomy scan was unremarkable with an EFW at the (unknown) (no (unknown) (unknown) gestational age. (units (unknown) date) She continues to unknown) do extremely well and her baby is active. (unknown) (no (unknown) (unknown) gestational age. (units (unknown) date) She is doing unknown) better with less nausea and her energy levels are (unknown) (no (unknown) (unknown) gestational age. 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 If (units (unknown) date) there are any unknown) questions, please contact the Medical Records (unknown) (no (unknown) (unknown) hours a day and (units (unknown) date) participation of unknown) father in care and office visits (unknown) (no (unknown) (unknown) household (units (unkn own) date) members: unknown) significant other (unknown) (no (unknown) (unknown) housing: house (units (unknown) date) unknown) (unknown) (no (unknown) (unknown) impossible to (units ( unknown) date) work a full 8 unknown) hours due to episodes of lightheadedness, near (unknown) (no (unknown) (unknown) induction on (units (u nknown) date) 05/06/2022 if unknown) undelivered by that date. Follow-up will be in 1 (unknown) (no (unknown) (unknown) insertion of the (units (unknown) date) cord but choroid unknown) plexus is normal and no other abnormality (unknown) (no (unknown) (unknown) irritability, (units ( unknown) date) bloating and other unknown) (constipation will get stool softner) (unknown) (no (unknown) (unknown) issues there. Pap (units (unknown) date) is current. 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 (unknown) (no (unknown) (unknown) jw (units (unkno wn) date) unknown) (unknown) (no (unknown) (unknown) kag (units (unkno wn) date) unknown) (unknown) (no (unknown) (unknown) leakage of fluid (units (unknown) date) per vagina, or unknown) change in discharge but her baby remains active. (unknown) (no (unknown) (unknown) leakage of fluid (units (unknown) date) per vagina, or unknown) change in vaginal discharge but she is having (unknown) (no (unknown) (unknown) lives (units (unkno wn) date) independently: Yes unknown) (unknown) (no (unknown) (unknown) marital status: (units (unknown) date) unmarried,living unknown) together (October) (unknown) (no (unknown) (unknown) medication, (units (un known) date) counseling, both, unknown) were expectant management. Will initiate to (unknown) (no (unknown) (unknown) milk did not come (units (unknown) date) in. Her stitches unknown) have healed nicely and she is having no (unknown) (no (unknown) (unknown) needed basis. (units ( unknown) date) unknown) (unknown) (no (unknown) (unknown) needed. (units (unkno wn) date) unknown) (unknown) (no (unknown) (unknown) neural tube (units (un known) date) defects discussed. unknown) (unknown) (no (unknown) (unknown) nonstress test on (units (unknown) date) 04/20/2022 unknown) (unknown) (no (unknown) (unknown) occasional crampy (units (unknown) date) pains in the unknown) pelvis. 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 Please (unknown) (no (unknown) (unknown) of fluid per (units (u nknown) date) vagina, or change unknown) in discharge. PTL precautions reviewed and (unknown) (no (unknown) (unknown) office if she has (units (unknown) date) any needs in that unknown) area otherwise follow-up will be on an as (unknown) (no (unknown) (unknown) on initial 1st (units (unknown) date) trimester unknown) ultrasound. Follow-up will be in 3 weeks to listen for (unknown) (no (unknown) (unknown) ordered to be (units ( unknown) date) performed at unknown) around 14-16 weeks. (unknown) (no (unknown) (unknown) patient in (units (unk nown) date) dealing with her unknown) anxieties. Follow-up anatomy scan confirms marginal (unknown) (no (unknown) (unknown) pelvic pressure (units (unknown) date) and low back unknown) discomfort. Reviewed labor precautions. She (unknown) (no (unknown) (unknown) pets and animals: (units (unknown) date) Yes (Dog) unknown) (unknown) (no (unknown) (unknown) pill if she (units (un known) date) wishes. unknown) (unknown) (no (unknown) (unknown) plug but denies (units (unknown) date) any leakage of unknown) fluid. Good movement. No headaches, (unknown) (no (unknown) (unknown) precautions (units (un known) date) reviewed with the unknown) patient. Patient advised she can take a sleeping (unknown) (no (unknown) (unknown) precautions (units (un known) date) reviewed. GBS unknown) culture discussed. Follow-up will be in 2 weeks or (unknown) (no (unknown) (unknown) prenat.vits,lizbet,m (units (unknown) date) en-ibfv-slpub 1 unknown) tab PO DAILY 09/19/21 [History Confirmed (unknown) (no (unknown) (unknown) prescription that (units (unknown) date) she will do so unknown) later today. Her headaches are bifrontal with (unknown) (no (unknown) (unknown) pressure, leakage (units (unknown) date) of fluid per unknown) vagina, or change in discharge. Quad screen (unknown) (no (unknown) (unknown) prevention and (units (unknown) date) Rubella unknown) Immunization (unknown) (no (unknown) (unknown) read the note (units ( unknown) date) carefully and unknown) recognize, using context, where these substitutions (unknown) (no (unknown) (unknown) referral is (units (un known) date) required by unknown) , she will contact the office and let us know. (unknown) (no (unknown) (unknown) referral. (units (unkn own) date) unknown) (unknown) (no (unknown) (unknown) release of (units (unk nown) date) information and unknown) potential financial responsibility with this team. (unknown) (no (unknown) (unknown) reports good (units (u nknown) date) movement. unknown) She is very uncomfortable and reports a lot of (unknown) (no (unknown) (unknown) scan. (units (unkno wn) date) unknown) (unknown) (no (unknown) (unknown) scotomata, (units (unk nown) date) epigastric pain. unknown) Routine precautions reviewed with the patient. (unknown) (no (unknown) (unknown) seatbelt use: (units ( unknown) date) always unknown) (unknown) (no (unknown) (unknown) second hand (units (un known) date) exposure: No unknown) (unknown) (no (unknown) (unknown) seen. PTL (units (unkn own) date) precautions unknown) reviewed. Follow-up will be in 2 weeks or as needed. (unknown) (no (unknown) (unknown) she denies (units (unk nown) date) contractions, unknown) bleeding, leakage of fluid per vagina, or change in (unknown) (no (unknown) (unknown) significantly and (units (unknown) date) the baby kicks unknown) kicking that area making it worse. There is no (unknown) (no (unknown) (unknown) software. (units (unkn own) date) Although every unknown) effort is made to edit content, direct support professional caregiver errors m (unknown) (no (unknown) (unknown) special jie (units ( unknown) date) needs: No unknown) (unknown) (no (unknown) (unknown) substance use (units ( unknown) date) type: does not use unknown) (unknown) (no (unknown) (unknown) suspicious mole (units (unknown) date) on her umbilicus unknown) removed and she states that the area hurts (unknown) (no (unknown) (unknown) syncope, nausea (units (unknown) date) and severe fatigue unknown) at times. Light duty letter provided and (unknown) (no (unknown) (unknown) testing and Cell (units (unknown) date) Free DNA unknown) (unknown) (no (unknown) (unknown) testing will be (units (unknown) date) submitted today. unknown) labor precautions reviewed and follow (unknown) (no (unknown) (unknown) the way of (units (unk nown) date) contractions but unknown) denies bleeding, leakage of fluid per vagina, or (unknown) (no (unknown) (unknown) up will be in 4 (units (unknown) date) weeks by which unknown) time she should have had her 20 week anatomy (unknown) (no (unknown) (unknown) vagina, change in (units (unknown) date) discharge, or unknown) contractions but her baby is active. PTL (unknown) (no (unknown) (unknown) vitamin B complex (units (unknown) date) (B Complex-Vitamin unknown) B12 tablet) 1 tab PO DAILY 09/19/21 (unknown) (no (unknown) (unknown) water heater temp (units (unknown) date) set < 120 deg: Yes unknown) (will check) (unknown) (no (unknown) (unknown) week or as (units (unk nown) date) needed. unknown) (unknown) (no (unknown) (unknown) well-balanced (units ( unknown) date) diet: daily or unknown) most days (unknown) (no (unknown) (unknown) will be in 4 weeks (units (unknown) date) and at that time a unknown) follow-up ultrasound for completion of the (unknown) (no (unknown) (unknown) will re-evaluate (units (unknown) date) in 4 weeks. She unknown) has started feeling good movement but (unknown) (no (unknown) (unknown) wk (units (unkno wn) date) unknown) (unknown) (no (unknown) (unknown) working smoke (units ( unknown) date) detector in home: unknown) Yes Social History date description facility 2022-06-17 00:00 Ex-smoker (finding) [facility] Vital Signs date measurement value units 2022-05-13 00:00 BP_diastolic 67 mmHg 2022-05-13 00:00 BP_systolic 108 mmHg 2022-05-13 00:00 heart_rate 92 /min 2022-05-13 00:00 temperature_metric 36.78 C 2022-05-13 00:00 temperature_standard 98.2 F 2022-06-17 00:00 BMI 28.9 kg/m2 2022-06-17 00:00 BP_diastolic 64 mmHg 2022-06-17 00:00 BP_systolic 102 mmHg 2022-06-17 00:00 height_metric 175.26 cm 2022-06-17 00:00 height_standard 69 in 2022-06-17 00:00 weight_metric 88.9 kg 2022-06-17 00:00 weight_standard 195.99 lb
[2022-08-03 20:17] LABS: BASOPHILS # (AUTO) 0.1 10^3/uL (0.0-0.1); BASOPHILS % (AUTO) 0.7 %; EOSINOPHILS # (AUTO) 0.1 10^3/uL (0.0-0.7); EOSINOPHILS % (AUTO) 1.4 %; HCT - HEMATOCRIT 36.7 % (37.0-47.0); HGB - HEMOGLOBIN 11.6 g/dL (12.0-16.0); LYMPHOCYTES # (AUTO) 2.3 10^3/uL (1.5-3.5); LYMPHOCYTES % (AUTO) 32.9 %; MEAN CORPUSCULAR HEMOGLOBIN 24.5 pg (27.0-31.0); MEAN CORPUSCULAR HGB CONC 31.6 g/dL (32.0-36.0); MEAN CORPUSCULAR VOLUME 77.6 fL (81.0-99.0); MEAN PLATELET VOLUME 9.3 fL (7.9-10.8); MONOCYTES # (AUTO) 0.5 10^3/uL (0.0-1.0); MONOCYTES % (AUTO) 6.8 %; NEUTROPHILS # (AUTO) 4.1 10^3/uL (1.5-6.6); NEUTROPHILS % (AUTO) 58.1 %; PLT - PLATELET COUNT 318 10^3/uL (130-450); RED BLOOD COUNT 4.73 10^6/uL (4.20-5.40); RED CELL DISTRIBUTION WIDTH 13.3 % (12.0-15.0); WHITE BLOOD COUNT 7.1 x10^3/uL (4.8-10.8)
[2022-08-03 20:33] LABS: ALBUMIN 4.3 g/dL (3.2-5.5); ALBUMIN/GLOBULIN RATIO 1.3 (1.0-2.2); BILIRUBIN,TOTAL 0.7 mg/dL (0.2-1.0); CALCIUM 9.3 mg/dL (8.5-10.3); CREATININE 0.6 mg/dL (0.4-1.0); POTASSIUM 3.6 mmol/L (3.5-5.0); TOTAL PROTEIN 7.5 g/dL (6.7-8.2)
[2022-08-03 20:36] LABS: BILIRUBIN,URINE NEGATIVE (NEGATIVE); GLUCOSE, URINE (UA) NEGATIVE (NEGATIVE); KETONES,URINE (UA) NEGATIVE (NEGATIVE); LEUKOCYTE ESTERASE, URINE NEGATIVE (NEGATIVE); NITRITE,URINE NEGATIVE (NEGATIVE); OCCULT BLOOD,URINE NEGATIVE (NEGATIVE); PROTEIN,URINE NEGATIVE (NEGATIVE); UROBILINOGEN,URINE 0.2 (NORMAL) E.U./dL (NORMAL)
[2022-08-03 20:41] LABS: CLARITY,URINE CLEAR (CLEAR); HCG UR QUAL NEGATIVE
[2022-08-03] MEDS ORDERED: iohexoL-300 100 ML VIAL ONE (21:37)
[2022-08-03] MEDS ORDERED: iohexoL-300 100 ML VIAL IVP ONE (22:18)
--- NOTE | 2022-08-03 22:46 | CT Report ---
PROCEDURE: ABDOMEN/PELVIS W INDICATIONS: worsening low abd pain, worse on R CONTRAST: 100 ML OMNI 300 TECHNIQUE: After the administration of intravenous contrast, 5 mm thick sections acquired from the diaphragms to the symphysis. 5 mm thick coronal and sagittal reformats were acquired. For radiation dose reducti on, the following was used: automated exposure control, adjustment of mA and/or kV according to diane ent size. COMPARISON: CT abdomen pelvis 04/08/2021, 12/25/2018. FINDINGS: Image quality: Excellent. Lung bases:There is mild dependent atelectasis bilaterally. Heart: Heart is normal in size. ABDOMEN: Liver: No mass lesion. Gallbladder: Within normal limits without calcified gallstones. Biliary ducts: No biliary ductal dilatation. Pancreas: Unremarkable. Spleen: Normal in size. Adrenal Glands: No adrenal nodules. Kidneys and Ureters: No hydronephrosis. Stomach and Bowel: Stomach, small bowel loops, and colon are normal in caliber and wall thickness. T he appendix is normal in appearance. There is colonic diverticulosis without acute diverticulitis. Peritoneum:There is a small amount of free fluid in the pelvis which appears within physiologic limi ts. No free air. Ventral Wall: No hernia. Abdominal Nodes: No retroperitoneal or mesenteric adenopathy by size criteria. Vessels: Aorta and inferior vena cava are normal in size. PELVIS: Pelvic Organs: Unremarkable. Bladder: Unremarkable. Pelvic Nodes: No enlarged lymph nodes. Miscellaneous: No inguinal hernias. Bones: Visualized osseous structures demonstrate no suspicious lesions. IMPRESSION: 1. No definite acute intra-abdominal abnormality. Specifically, no evidence of acute appendicitis. 2. No evidence of obstructive uropathy. 3. Small amount of pelvic free fluid appears within physiologic limits. Reviewed by: James Shannon MD on 08/03/2022 10:45 PM PST Approved by: James Shannon MD on 08/03/2022 10:45 PM PST Station ID: [id number]
--- NOTE | 2022-08-03 23:19 | ED Physician Documentation ---
History of Present Illness - Stated complaint Stated Complaint: ABD/BACK PX,BLOOD IN STOOL - Chief complaint Chief Complaint: Abd Pain - History obtained from History obtained from: Patient - Additonal information Additional information: The patient comes to the emergency department chief complaint of worsening lower abdominal pain and an episode of blood in her stool today. The patient states that she has been having low abdominal pain issues for over a year, and that This started before she became with her son, to whom she gave 3 months ago. The patient at that time had a laparoscopy done to see if she had endometriosis, but this was completely negative. Patient became and her pain seemed to get better, but after she gave to the baby, she began having the pains again. She states that her security compliance specialist did a pelvic exam with her could not find anything wrong. She states that he had said he was going to get an ultrasound but never ordered it. The patient is covered by [employer] insurance and she states that due to changes in their coverage, they told her she would have to start over and go through [facility] to be referred to an [facility] HELPER again, so she has been able to follow-up further for this. The patient states that her went well, though she did note that her milk never came in, despite extensive efforts to stimulate production. She states she mentioned this to her OV and that they never really gave her an answer as to why. As far as the pain now, she states its been getting worse over the last couple of weeks. She states that she gets stabbing pains that go across her low abdomen and that they are there every day but do wax and wane. She denies any dysuria or hematuria. She has returned to normal periods. Her bowel movements are intermittently firm and loose. She states that today, she felt the urge to have a bowel movement and when she looked down in the toilet after going, she noticed that the toilet bowl was red and when she wiped, there was a clot on the toilet paper. Patient states this is never happened before. She had a hemorrhoid after giving but that went down after couple of days. She denies any bleeding onto her underwear before or after the bowel movement. No vaginal bleeding. No other complaints at this time. Review of Systems Constitutional: reports: Reviewed and negative Eyes: reports: Reviewed and negative Ears: reports: Reviewed and negative Nose: reports: Reviewed and negative Throat: reports: Reviewed and negative Cardiac: reports: Reviewed and negative Respiratory: reports: Reviewed and negative GI: reports: Abdominal Pain, Bloody / black stool : reports: Reviewed and negative Skin: reports: Reviewed and negative Musculoskeletal: reports: Reviewed and negative Neurologic: reports: Reviewed and negative Psychiatric: reports: Reviewed and negative Endocrine: reports: Reviewed and negative Immunocompromised: reports: Reviewed and negative PD PAST MEDICAL HISTORY - Past Medical History Cardiovascular: None Respiratory: None Neuro: None Endocrine/Autoimmune: None GI: None AGRONOMY TECHNICIAN: None : None HEENT: None Psych: None Musculoskeletal: None Derm: None - Past Surgical History Past Surgical History: No - Present Medications Home Medications: Ambulatory Orders Medication Instructions Recorded Confirmed Sertraline [Zoloft] 25 mg PO DAILY 08/03/22 08/03/22 hydrOXYzine HCL [Hydroxyzine HCl] 25 mg PO DAILY 08/03/22 08/03/22 - Allergies Allergies/Adverse Reactions: Allergies Allergy/AdvReac Type Severity Reaction Status Date / Time No Known Drug Allergies Allergy Verified 08/03/22 20:04 - Social History Does the pt smoke?: No Smoking Status: Never smoker Does the pt drink ETOH?: Yes Does the pt have substance abuse?: No - Immunizations Immunizations are current?: Yes - POLST Patient has POLST: No PD ED PE NORMAL - Vitals Vital signs reviewed: Yes - General General: Alert and oriented X 3, No acute distress, Well developed/nourished - HEENT HEENT: Atraumatic, PERRL, EOMI, Moist mucous membranes - Neck Neck: Supple, no meningeal sign - Cardiac Cardiac: RRR, No murmur, Strong equal pulses - Respiratory Respiratory: No respiratory distress, Clear bilaterally - Abdomen Abdomen: Soft, Non distended, Other (Mild tenderness bilateral lower quadrants and suprapubic area, no rebound or guarding.) - Derm Derm: Warm and dry - Extremities Extremities: No deformity - Neuro Neuro: Alert and oriented X 3 - Psych Psych: Normal mood, Normal affect Results - Vitals Vitals: Vital Signs - 24 hr 08/03/22 08/03/22 08/03/22 20:00 22:04 23:26 Temperature 36.6 C Heart Rate 97 87 81 Respiratory 16 18 18 Rate Blood Pressure 127/86 H 125/74 119/75 O2 Saturation 100 100 97 Oxygen O2 Source Room air - Labs Labs: Laboratory Tests 08/03/22 08/03/22 08/03/22 20:11 20:11 20:26 WBC 7.1 RBC 4.73 Hgb 11.6 L Hct 36.7 L MCV 77.6 L MCH 24.5 L MCHC 31.6 L RDW 13.3 Plt Count 318 MPV 9.3 Neut # (Auto) 4.1 Lymph # (Auto) 2.3 [place] # (Auto) 0.5 Eos # (Auto) 0.1 Baso # (Auto) 0.1 Absolute Nucleated RBC 0.00 Nucleated RBC % 0.0 Sodium 139 Potassium 3.6 Chloride 103 Carbon Dioxide 30 Anion Gap 6.0 BUN 12 Creatinine 0.6 Estimated GFR (MDRD) 123 Glucose 101 H Calcium 9.3 Total Bilirubin 0.7 AST 23 ALT 34 Alkaline Phosphatase 56 Total Protein 7.5 Albumin 4.3 Globulin 3.2 Albumin/Globulin Ratio 1.3 Lipase 28 Urine Color YELLOW Urine Clarity CLEAR Urine pH 7.0 Ur Specific [place] 1.015 Urine Protein NEGATIVE Urine Glucose (UA) NEGATIVE Urine Ketones NEGATIVE Urine Occult Blood NEGATIVE Urine Nitrite NEGATIVE Urine Bilirubin NEGATIVE Urine Urobilinogen 0.2 (NORMAL) Ur Leukocyte Esterase NEGATIVE Ur Microscopic Review NOT INDICATED Urine Culture Comments NOT INDICATED Urine HCG, Qual NEGATIVE - Rads (name of study) CT abdomen and pelvis Radiology: Final report received, See rad report (Negative for acute findings) PD Medical Decision Making - ED course Complexity details: reviewed results, re-evaluated patient, considered differential, d/w patient ED course: The patient had had ongoing issues with lower abdominal pain, but seem to be worsening recently, and it was not clear whether the episode of rectal bleeding was related to this or not. As such, I did get laboratory studies on the patient including a CBC and an ER abdominal panel. These were both reviewed by me, and showed a normal white blood cell count With slightly decreased hemoglobin, and an unremarkable ER abdominal panel. CT of the abdomen pelvis showed a mild amount of physiologic pelvic free fluid. Appendix was normal and no identifiable reason for the rectal bleeding or the ongoing abdominal pain was found. I discussed with the patient, who had declined any symptomatic intervention in the emergency department, that she should certainly see [facility] again, both to get set back up with GINNER HELPER, but also, to discuss possibly having a colonoscopy done or being referred to GI for further evaluation of her ongoing low abdominal pain. I am really not sure what is causing this, but I have advised the patient that we have not found an emergent cause at this time. We have discussed symptomatic management at home, as well as the usual indications for return. Departure - Departure Disposition: Home, Self Care Clinical Impression: Abdominal pain Qualifiers: Abdominal location: lower abdomen, unspecified Qualified Code(s): R10.30 - Lower abdominal pain, unspecified Condition: Stable Instructions: ED Abdominal Pain Female Non-Specific Abdominal Pain Comments: Your CT scan looks very good. It is not clear what continues to cause your abdominal pain. Your labs look good overall, and there is no evidence of ongoing or significant blood loss. [place] discuss whether a colonoscopy or referral to gastroenterology would be in order to further evaluate your pain. Discharge Date/Time: 08/03/22 23:28
[2022-08-03 23:29] VITALS: BP 119/75
== END 2022-08-03 23:28 | disposition home or self-care (01) ==
LOC: ED 19:49
DX: R10.30 Lower abdominal pain, unspecified (principal)
CPT/HCPCS: 36415; 74177; 80053; 81003; 81025; 83690; 85025; 99284; Q9967; 81001; 87086